=== PATIENT | female | born 1960 | race Caucasian/White ===

== ENCOUNTER 2023-11-22 21:00 | Outpatient (REF) | payer OTHER, SELFPAY | END 2023-11-22 21:01 | disposition home or self-care (01) | LOC: LAB 21:00 | PROVIDERS: PCP Internal Medicine; Visit Provider Physician Assistant | DX: Z01.419 Encounter for gynecological examination (general) (routine) without abnormal findings (principal) | CPT/HCPCS: 87624; 88175 ==

== ENCOUNTER 2023-12-20 13:34 | Outpatient (OUT) | payer OTHER, SELFPAY ==
--- OUTSIDE RECORDS SUMMARY | 2023-12-20 14:05 | XMS_ITS | CCD ---
Author Organization [facility] Care Team Providers Care Classified Advertising Supervisor Name Role Phone Mary Menard Unavailable Ricky Parmar Unavailable RONI, DR BOUCHER Consulting Unavailable BALL, DR BOUCHER Primary Care Unavailable BALL, DR BOUCHER Attending Unavailable BALL, DR BOUCHER Admitting Unavailable ZIEBER, DR DORIE Alberto Consulting Unavailable HIGHLANDER, NATA Siegel Consulting Unavailable BALL, DR BOUCHER Primary Care Unavailable HIGHLANDER, NATA Siegel Attending Unavailable HIGHLANDER, NATA Siegel Admitting Unavailable KLIPPER, VERONIKA Consulting Unavailable WEST, DR VERONIKA Morataya Consulting Unavailable BALL, DR BOUCHER Primary Care Unavailable HIGHLANDER, NATA Siegel Attending Unavailable HIGHLANDER, NATA Siegel Admitting Unavailable HIGHLANDER, NATA Siegel Consulting Unavailable BALL, DR BOUCHER Consulting Unavailable BALL, DR BOUCHER Primary Care Unavailable BALL, DR BOUCHER Attending Unavailable BALL, DR BOUCHER Admitting Unavailable ZIEBER, DR DORIE Alberto Consulting Unavailable BALL, DR BOUCHER Consulting Unavailable BALL, DR BOUCHER Primary Care Unavailable BALL, DR BOUCHER Attending Unavailable BALL, DR BOUCHER Admitting Unavailable WEST, DR VERONIKA Morataya Consulting Unavailable BALL, DR BOUCHER Consulting Unavailable BALL, DR BOUCHER Primary Care Unavailable BALL, DR BOUCHER Attending Unavailable BALL, DR BOUCHER Admitting Unavailable REQUEST, DR CHANG LISTED Consulting Unavaila ble BALL, DR BOUCHER Primary Care Unavailable REQUEST, DR CHANG LISTED Attending Unavaila ble REQUEST, DR CHANG LISTED Admitting Unavaila ble BALL, DR BOUCHER Consulting Unavailable BALL, DR BOUCHER Primary Care Unavailable BALL, DR BOUCHER Attending Unavailable BALL, DR BOUCHER Admitting Unavailable BALL, DR BOUCHER Primary Care Unavailable HIGHLANDER, NATA Siegel Attending Unavailable HIGHLANDER, NATA Siegel Admitting Unavailable BALL, DR BOUCHER Consulting Unavailable BALL, DR BOUCHER Primary Care Unavailable BALL, DR BOUCHER Attending Unavailable BALL, DR BOUCHER Admitting Unavailable WEST, DR VERONIKA Morataya Consulting Unavailable BALL, DR BOUCHER Primary Care Unavailable HIGHLANDER, NATA Siegel Attending Unavailable HIGHLANDER, NATA Siegel Admitting Unavailable HIGHLANDER, NATA Siegel Consulting Unavailable BALL, DR BOUCHER Consulting Unavailable RONI, DR BOUCHER Primary Care Unavailable RONI, DR BOUCHER Attending Unavailable RONI, DR BOUCHER Admitting Unavailable REQUEST, DR CHANG LISTED Attending Unavaila ble REQUEST, DR CHANG LISTED Admitting Unavaila ble BALL, DR BOUCHER Consulting Unavailable BALL, DR BOUCHER Primary Care Unavailable LIMESTONE, DR VERONIKA Morataya Consulting Unavailable RONI, DR BOUCHER Primary Care Unavailable ELAINE, NATA Siegel Attending Unavailable ELAINE, NATA Siegel Admitting Unavailable ELAINE, NATA Siegel Consulting Unavailable Unavailable Primary Care Provider UnavailILIANA Ontiveros Attending Unavailable PETDRAKE, ILIANA Pitts Attending Unavailable INGRID JUAREZ Attending Unavailable PETDRAKE, ILIANA Pitts Attending Unavailable Allergies Allergy Classification Reported Allergen(s) Allergy Type Date of Onset Reaction(s) Facility (6 sources) Pollen Drug allergy Unknown [employer] Other (3 sources) Insect Stings Propensity to adverse reactions 4 Unknown, Unknown Reaction [facility] (1 source) Pollen Allergy to substance 4 Unknown Reaction [facility] Medications Current Medications Medication Drug Class(es) Dates Sig (Normalized) Sig (Original) aspirin 81 mg delayed release oral tablet (10 sources) Platelet Aggregation Inhibitor, Nonsteroidal Anti-inflammatory Drug Start: 07-14-2022 take 1 tablet by mouth every twenty-four hours Aspirin 81 81 MG 1 tablet Orally Once a day Jun, Active Baby Aspirin 81 MG Active Baby Aspirin Act alfred azithromycin 250 mg oral tablet (11 sources) Macrolide Antimicrobial Start: 08-09-2022 Azithromycin 250 MG as directed Orally daily for 5 days Apr, Active Start: 01-24-2022 Azithromycin 2 50 MG 2 tablet on the first day, then 1 tablet daily for 4 days Orally Once a day for 5 day(s) Jan, Not-Taking/PRN levothyroxine sodium 0.112 mg oral tablet (8 sources) l-Thyroxine Start: 04-04-2023 levothyroxine (Synthroid, Levoxyl) 112 MCG tablet take 1 tablet by once daily in the morning Levothyroxine Sodium 112 MCG 1 tablet in the morning on an empty stomach Orally Once a day Active Completed/Discontinued Medications Medication Drug Class(es) Dates Sig (Normalized) Sig (Original) atorvastatin 20 mg oral tablet (7 sources) HMG-CoA Reductase Inhibitor take 1 tablet by mouth every twenty-four hours Atorvastatin Calcium 20 MG 1 tablet Orally Once a day Not-Taking/PRN meloxicam 15 mg oral tablet (7 sources) Nonsteroidal Anti-inflammatory Drug take 1 tablet by mouth every twenty-four hours Meloxicam 15 MG 1 tablet Orally Once a day Not-Taking/PRN Meloxicam Active Problems Active Problems Problem Classification Problem Date Documented Date Episodic/Chronic Acquired foot deformities (16 sources) Disorder of ankle; Translations: [Valgus deformity, not elsewhere classified, right ankle] Onset: 2 Episodic Acute bronchitis (7 sources) Acute bronchitis; Translations: [Acute bronchitis due to other specified organisms] Episodic Disorders of lipid metabolism (8 sources) Pure hypercholesterolemia; Translations: [Pure hypercholesterolemia, unspecified] Chronic Esophageal disorders (1 source) Gastro-esophageal reflux disease with esophagitis; Translations: [Gastroesophageal reflux disease with esophagitis without hemorrhage] Chronic Gastrointestinal hemorrhage (6 sources) Hemorrhage of rectum and anus; Translations: [Hemorrhage of anus and rectum] Episodic Other acquired deformities (5 sources) Joint contracture of the ankle and/or foot; Translations: [Contracture, 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 Other acquired deformities (1 source) Contracture, right foot; Translations: [Contracture, 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 Other connective tissue disease (5 sources) Peroneal tendinitis; Translations: [Peroneal tendinitis, right leg] Episodic Other connective tissue disease (5 sources) Peroneal tendinitis, right leg; Translations: [PERONEAL TENDINITIS RIGHT LEG] Onset: 2 Episodic Other diseases of veins and lymphatics (6 sources) Peripheral venous insufficiency; Translations: [Venous insufficiency (chronic) (peripheral)] Episodic Other diseases of veins and lymphatics (1 source) Venous insufficiency (chronic) (peripheral) Episodic Other gastrointestinal disorders (5 sources) Pharyngeal dysphagia; Translations: [Dysphagia, pharyngoesophageal phase] Episodic Other gastrointestinal disorders (1 source) Dysphagia, pharyngoesophageal phase; Translations: [Dysphagia, pharyngoesophageal] Episodic Other non-epithelial cancer of skin (1 source) Basal cell carcinoma of lower extremity; Translations: [Basal cell carcinoma of skin of left lower limb, including hip] 05-23-2023 Episodic Other screening for suspected conditions (not mental disorders or infectious disease) (12 sources) Raised TSH level; Translations: [Other specified abnormal findings of blood chemistry] Onset: 2 Episodic Other upper respiratory disease (6 sources) Bleeding from nose; Translations: [Epistaxis] Episodic Other upper respiratory disease (1 source) Epistaxis Episodic Other upper respiratory infections (1 source) Acute maxillary sinusitis, unspecified Episodic Peripheral and visceral atherosclerosis (18 sources) Other atherosclerosis of [place] arteries of extremities, bilateral legs; Translations: [Peripheral vascular disease, unspecified] Chronic Substance-related disorders (5 sources) Tobacco dependence in remission; Translations: [Nicotine dependence, cigarettes, in remission] Chronic Thyroid disorders (20 sources) Hypothyroidism; Translations: [Hypothyroidism, unspecified] Onset: 2 Chronic Varicose veins of lower extremity (8 sources) Varicose veins of lower extremity; Translations: [Varicose veins of bilateral lower extremities with other complications] Onset: 2 Resolved: 2 Episodic Past or Other Problems Problem Classification Problem Date Documented Da te Episodic/Chronic Esophageal disorders (5 sources) Esophageal disorders; Translations: [Gastroesophageal reflux disease with esophagitis without hemorrhage] Other connective tissue disease (1 source) Other enthesopathy of right foot and ankle; Translations: [OTHR ENTHESOPATHY RT FOOT AND ANKLE] Onset: 01-10-2022 Episodic Other connective tissue disease (4 sources) Pain in right foot; Translations: [PAIN IN RIGHT FOOT] Onset: 10-26-2021 Episodic Other connective tissue disease (1 source) Pain in right leg; Translations: [PAIN IN RIGHT LEG] Onset: 09-08-2021 Episodic Other connective tissue disease (1 source) Pain in left leg; Translations: [PAIN IN LEFT LEG] Onset: 09-08-2021 Episodic Other non-traumatic joint disorders (4 sources) Pain in right ankle and joints of right foot; Translations: [PAIN IN RIGHT ANKLE] Onset: 12-30-2021 Episodic Unclassified (1 source) Suspected COVID-19 virus infection Z20.822 Results Test Name Value Interpretation Reference Range Facility Destr of lesionon 05-23-2023 Complexity: simple Destruction method: electrodesiccation and curettage Informed consent: discussed and consent obtained Informed consent comment: The risks of the procedure were discussed, including, but not limited to risks of scarring, darker or commercial collections driver pigmentary changes, recurrence, infection, and incomplete removal Timeout: patient name, date of , surgical site, and procedure verified Procedure prep: Patient was prepped and draped in usual sterile fashion Prep type: Chlorhexidine Anesthesia: the lesion was anesthetized in a standard fashion Anesthetic: 1% lidocaine w/ epinephrine 1-100,000 buffered w/ 8.4% NaHCO3 Curettage performed in three different directions: Yes Electrodesiccation performed over the curetted area: Yes Curettage cycles: 3 Lesion length (cm): 1.1 Lesion width (cm): 1 Margin per side (cm): 0 Final wound size (cm): 1.1 Hemostasis achieved with: electrodesiccation Outcome: patient tolerated procedure well with no complications Post-procedure details: wound care instructions given Post-procedure details comment: Post-procedure instructions were given verbally and in writing. The office will be contacted if the lesion fails to resolve despite treatment, or if a side effect develops such as abnormal crusting, scabbing, reddness, discharge, or tenderness. Additional details: Amount of lidocaine used: 1.0 cc Previous accession number: [id number] [facility] [place] - TSHon 07-13-2022 TSH 0.013 uIU/mL Critically low 0.358-3.740 [facility] Comment on above: Performed By: #### D ATTSH #### [facility] [address] [place] [address] Dr. Yordan Ferguson TSH RANGE SEE BELOW Normal [facility] Comment on above: Result Comment: <0.3 4 UIU/ml HYPERTHYROID 0.34-5.60 UIU/ml EUTHYROID >5.60 UIU/ml HYPOTHYROID Performed By: #### D ATTSH #### [facility] [address] [place] [address] Dr. Yordan Ferguson [place] - TSHon 06-12-2022 TSH 0.020 uIU/mL Critically low 0.358-3.740 [facility] Comment on above: Performed By: #### D ATTSH #### [facility] [address] [place] [address] Dr. Yordan Ferguson TSH RANGE SEE BELOW Normal [facility] Comment on above: Result Comment: <0.3 4 UIU/ml HYPERTHYROID 0.34-5.60 UIU/ml EUTHYROID >5.60 UIU/ml HYPOTHYROID Performed By: #### D ATTSH #### [facility] [id number] Yordan Ferguson MG MAMM SCREEN 3D NORMA CADon 06-09-2022 MG MAMM SCREEN 3D NORMA CAD Patient: NEMO VALERA Exam Date: 06/09/2022 : 1960 Gender:F Ordering : DR RICKY PARMAR D.O. Admission #: [id number] Family : Order #: [id number] CLICK HERE TO VIEW EXAM RADIOLOGY REPORT PROCEDURE: MAMMOGRAM SCREENING 3D BILATERAL CAD COMPARISON: MG MAMM SCREEN NORMA W CAD, 06/01/2020. MG MAMM SCREEN 3D NORMA CAD, 06/03/2021. INDICATIONS: Screening mammography Calculator Name NCI Breast Cancer Risk Assessment Tool 5 Year Breast Cancer Risk 1.70% Lifetime Breast Cancer Risk 8.70% Personal Breast Cancer No Personal Ovarian Cancer No Treatments None Family Cancers None LOCATION: [facility] BREAST COMPOSITION: Heterogeneously dense,which may obscure small masses. FINDINGS: DIAGNOSTIC CATEGORY 2--BENIGN FINDING. NO CHANGE FROM COMPARISON. Scattered benign-appearing calcifications are present. RIGHT BREAST: No significant suspicious finding. LEFT BREAST: No significant suspicious finding. RECOMMENDATIONS: ROUTINE MAMMOGRAM AND CLINICAL EVALUATION IN 12 MONTHS. PLEASE NOTE: A NORMAL MAMMOGRAM DOES NOT EXCLUDE THE POSSIBILITY OF BREAST CANCER. A CLINICALLY SUSPICIOUS PALPABLE LUMP SHOULD BE BIOPSIED. Dictated by: Veronika Horton MD on 06/09/2022 at 10:26 Approved by: Veronika Horton MD on 06/09/2022 at 10:28 Normal [facility] TSHon 03-20-2022 TSH 0.072 uIU/mL Critically low 0.358-3.740 [facility] Comment on above: Performed By: #### T SH #### [facility] [id number] Yordan Ferguson TSHon 02-01-2022 TSH 42.462 uIU/mL Critically high 0.358-3.740 [facility] Comment on above: Performed By: #### T SH #### [facility] [address] [address] [address] Yordan Ferguson MRI ANKLE RT WO CONon 2021 MRI ANKLE RT WO CON EXAM: MRI ANKLE RT WO CON HISTORY: Ankle pain COMPARISON: X-rays 12/20/2021 TECHNIQUE: Multiplanar, multi sequential MRI sequences were performed. FINDINGS: No fracture, dislocation, subluxation or osseous lesion. Effusions of the talocrural and posterior subtalar joints are collected within their posterior recesses. The visualized articular cartilage is unremarkable. The tarsal tunnel and omar pedis exhibit no edema, hematoma, mass or cyst. Mild medial subcutaneous soft tissue edema with no loculated collection. The peroneus longus and peroneus brevis tendons exhibit no thickening, tear or edema. Small amount physiologic fluid within the peroneus longus tendon sheath as it courses posterior to the lateral malleolus. No abnormal fluid collection. The posterior tibial, flexor digitorum longus, flexor hallucis longus and anterior tendons exhibit no thickening, tear, edema or tenosynovial collections. The anterior talofibular, calcaneofibular, posterior talofibular, anterior and posterior inferior tibiofibular, syndesmotic, deltoid and spring ligamentous complexes exhibit no gross visualized irregularity. The sinus tarsi, Achilles tendon and plantar aponeurosis central cord exhibit no thickening, tear or edema. No muscle edema, hematoma, atrophy or fatty infiltration. IMPRESSION: 1. Nonspecific effusions of the talocrural and posterior subtalar joints, most likely stress related. 2. No peroneus longus or peroneus brevis tendinopathy or tenosynovitis. Electronically authenticated by: VERONIKA BANERJEE Date: 2022-01-07 22:[address] [facility] T3, TOTAL (TRIIODOTHYRONINE) on 12-15-2021 T3, TOTAL 75 ng/dL Normal 71-[address] [facility] Comment on above: Performed By: #### T 3TOTAL #### [facility] [address] [place] [address] Dr. Yoradn Ferguson THYROID PEROXIDASE ABon 09-0 Thyroid Peroxidase (TPO) Ab 244 IU/mL Critically high 0-34 [facility] Comment on above: Performed By: #### T POAB #### [facility] [address] [place] [address] Dr. Yordan Ferguson US THYROIDon 12-14-2021 US THYROID EXAMINATION: US THYR OID HISTORY: Hypothyroidism COMPARISON: No relevant comparison available. FINDINGS: RIGHT LOBE: Normal size and echotexture. Lobe size: 4.2 x 1.2 x 1.4 cm LEFT LOBE: Contains a 3 mm TR 3 nodule and a 3 mm colloid cyst. Lobe size: 3.5 x 1.0 x 1.2 cm. ISTHMUS: Normal size and echotexture. Thickness: 1 mm. IMPRESSION: 1. No suspicious findings. TR3 (mildly suspicious): > 1.5 cm, follow-up ultrasound in 1, 3, and 5 years. > 2.5 cm, fine needle aspiration. Electronically authenticated by: DORIE OROZCO Date: 2021-12-14 07:04 Normal [facility] FREE T4on 12-13-2021 Free T4 [Mass/Vol] 0.43 ng/dL Critically low 0.76-1.46 [facility] Comment on above: Performed By: #### D ATTSH #### [facility] [address] [place] [address] Dr. Yordan Ferguson TSHon 12-13-2021 TSH 65.911 uIU/mL Critically high 0.358-3.740 [facility] Comment on above: Performed By: #### T SH #### [facility] [address] [place] [address] Dr. Yordan Ferguson [facility] CBC AUTO DIFFon 12-01-2021 BASO # 0.1 103/ul Normal 0.0-0.1 [facility] Comment on above: Performed By: #### D ATTSH #### [facility] [address] [place] [address] Dr. Yordan Ferguson Basophils/100 WBC (Bld) 1.1 % Normal 0.2-2.0 [facility] Comment on above: Performed By: #### D ATTSH #### [facility] [address] [place] [address] Dr. Yordan Ferguson EO # 0.4 103/ul Normal 0.0-0.7 [facility] Comment on above: Performed By: #### D ATTSH #### [facility] [address] [place] [address] Dr. Yordan Ferguson Eosinophils/100 WBC (Bld) 6.5 % Normal 0.9-7.0 [facility] Comment on above: Performed By: #### D ATTSH #### [facility] [address] [place] [address] Dr. Yordan Ferguson Erythrocyte distribution width (RBC) [Ratio] 13.6 % Normal 11.0-15.0 [facility] Comment on above: Performed By: #### D ATTSH #### [facility] [address] [place] [address] Dr. Yordan Ferguson Hematocrit (Bld) [Volume fraction] 40.6 % Normal 36.0-48.0 [facility] Comment on above: Performed By: #### D ATTSH #### [facility] [address] [place] [address] Dr. Yordan Ferguson Hemoglobin (Bld) [Mass/Vol] 13.4 g/dL Normal 12.0-16.0 [facility] Comment on above: Performed By: #### D ATTSH #### [facility] [address] [place] [address] Dr. Yordan Ferguson IG # 0.01 10e3/ul Normal 0.00-0.03 [facility] Comment on above: Performed By: #### D ATTSH #### [facility] [address] [place] [address] Dr. Yordan Ferguson IG % 0.2 % Normal 0.0-0.[address] [facility] Comment on above: Performed By: #### D ATTSH #### [facility] [address] [place] [address] Dr. Yordan Ferguson LYMPH # 2.1 103/ul Normal 1.2-3.[address] [facility] Comment on above: Performed By: #### D ATTSH #### [facility] [address] [place] [address] Dr. Yordan Ferguson Lymphocytes/100 WBC (Bld) 31.7 % Normal 20.5-60.0 [facility] Comment on above: Performed By: #### D ATTSH #### [facility] [address] [address] [address] Yordan Ferguson MCH (RBC) [Entitic mass] 31.6 pg Normal 26.7-34.0 [facility] Comment on above: Performed By: #### D ATTSH #### [facility] [address] [place] [address] Dr. Yordan Ferguson MCHC (RBC) [Mass/Vol] 33.0 g/dL Normal 29.9-35.[address] [facility] Comment on above: Performed By: #### D ATTSH #### [facility] [address] [place] [address] Dr. Yordan Ferguson MCV (RBC) [Entitic vol] 95.8 fL Normal 81.0-99.0 [facility] Comment on above: Performed By: #### D ATTSH #### [facility] [address] [place] [address] Dr. Yordan Ferguson MONO # 0.6 103/ul Normal 0.3-0.8 [facility] Comment on above: Performed By: #### D ATTSH #### [facility] [address] [place] [address] Dr. Yordan Ferguson Monocytes/100 WBC (Bld) 8.6 % Normal 1.7-12.0 [facility] Comment on above: Performed By: #### D ATTSH #### [facility] [address] [place] [address] Dr. Yordan Ferguson NEUT # 3.4 103/ul Normal 1.4-6.[address] [facility] Comment on above: Performed By: #### D ATTSH #### [facility] [address] [place] [address] Dr. Yordan Ferguson Neutrophils/100 WBC (Bld) 51.9 % Normal 43.0-75.[address] [facility] Comment on above: Performed By: #### D ATTSH #### [facility] [address] [place] [address] Dr. Yordan Ferguson Platelet mean volume (Bld) [Entitic vol] 9.0 fL Critically low 9.5-13.5 [facility] Comment on above: Performed By: #### D ATTSH #### [facility] [address] [place] [address] Dr. Yordan Ferguson PLT 307 103/ul Normal 150-[address] [facility] Comment on above: Performed By: #### D ATTSH #### [facility] [address] [address] [address] Yordan Ferguson RBC 4.24 106/ul Normal 4.20-5.40 [facility] Comment on above: Performed By: #### D ATTSH #### [facility] [address] [address] [address] Yordan Ferguson WBC 6.5 103/ul Normal 4.0-11.0 [facility] Comment on above: Performed By: #### D ATTSH #### [facility] [address] [place] [address] Dr. Yordan Ferguson [facility] PROFILEon 022 Albumin [Mass/Vol] 4.4 g/dL Normal 3.4-5.0 [facility] Comment on above: Performed By: #### H FPF #### [facility] [address] [place] [address] Dr. Yordan Ferguson Albumin/Globulin [Mass ratio] 1.2 {ratio} Normal [facility] Comment on above: Performed By: #### H FPF #### [facility] [address] [place] [address] Dr. Yordan Ferguson ALP [Catalytic activity/Vol] 75 U/L Normal 46-[address] [facility] Comment on above: Performed By: #### H FPF #### [facility] [address] [place] [address] Dr. Yordan Ferguson ALT [Catalytic activity/Vol] 33 U/L Normal 14-[address] [facility] Comment on above: Performed By: #### H FPF #### [facility] [address] [place] [address] Dr. Yordan Ferguson AST [Catalytic activity/Vol] 29 U/L Normal 15-[address] [facility] Comment on above: Performed By: #### H FPF #### [facility] [address] [address] [address] Yordan Ferguson Bilirubin [Mass/Vol] 0.3 mg/dL Normal 0.2-1.0 [facility] Comment on above: Performed By: #### H FPF #### [facility] [address] [address] [address] Yordan Ferguson Calcium [Mass/Vol] 9.3 mg/dL Normal 8.5-10.1 [facility] Comment on above: Performed By: #### H FPF #### [facility] [address] [address] [address] Yordan Ferguson Chloride [Moles/Vol] 103 mmol/L Normal 98-107 [facility] Comment on above: Performed By: #### H FPF #### [facility] [address] [place] [address] Dr. Yordan Ferguson CHOL-HDL RATIO NORM SEE BELOW Normal [facility] Comment on above: Result Comment: 3.3 - 4.4 LOW RISK 4.4 - 7.1 AVERAGE RISK 7.1 - 11.0 MODERATE RISK >11.0 HIGH RISK Performed By: #### H FPF #### [facility] [address] [place] [address] Dr. Yordan Ferguson Cholesterol [Mass/Vol] 214 mg/dL Critically high <=200 [facility] Comment on above: Performed By: #### H FPF #### [facility] [address] [address] [address] Yordan Ferguson Cholesterol in HDL [Mass/Vol] 87 mg/dL Critically high 40-[address] [facility] Comment on above: Performed By: #### H FPF #### [facility] [address] [place] [address] Dr. Yordan Ferguson Cholesterol in LDL [Mass/Vol] 111.2 mg/dL Normal [facility] Comment on above: Performed By: #### H FPF #### [facility] [address] [place] [address] Dr. Yordan Ferguson Cholesterol.total /Cholesterol in HDL [Mass ratio] 2.5 {ratio} Normal [facility] Comment on above: Performed By: #### H FPF #### [facility] [address] [place] [address] Dr. Yordan Ferguson CO2 [Moles/Vol] 28.0 mmol/L Normal 21.0-32.0 [facility] Comment on above: Performed By: #### H FPF #### [facility] [address] [place] [address] Dr. Yordan Ferguson Creatinine [Mass/Vol] 0.83 mg/dL Normal 0.55-1.02 [facility] Comment on above: Performed By: #### H FPF #### [facility] [address] [place] [address] Dr. Yordan Ferguson Globulin (S) [Mass/Vol] 3.6 g/dL Normal [facility] Comment on above: Performed By: #### H FPF #### [facility] [address] [place] [address] Dr. Yordan Ferguson Glucose [Mass/Vol] 86 mg/dL Normal 74-106 [facility] Comment on above: Performed By: #### H FPF #### [facility] [address] [place] [address] Dr. Yordan Ferguson HDL NORMAL > or = 60 mg/dl - LO W CARDIOVASCULAR RISK <40 mg/dl - HIGH CARDIOVASCULAR RISK Normal [facility] Comment on above: Performed By: #### H FPF #### [facility] [address] [place] [address] Dr. Yordan Ferguson LDL CALC NORMAL SEE BELOW Normal [facility] Comment on above: Result Comment: <100 mg/dl OPTIMAL 100 - 129 mg/dl NEAR OR ABOVE OPTIMAL 130 - 159 mg/dl BORDERLINE HIGH 160 - 189 mg/dl HIGH >190 mg/dl VERY HIGH Performed By: #### H FPF #### [facility] [address] [place] [address] Dr. Yordan Ferguson Potassium [Moles/Vol] 4.4 mmol/L Normal 3.5-5.1 [facility] Comment on above: Performed By: #### H FPF #### [facility] [address] [address] [address] Yordan Ferguson Protein [Mass/Vol] 8.0 g/dL Normal 6.4-8.2 [facility] Comment on above: Performed By: #### H FPF #### [facility] [address] [address] [address] Yordan Ferguson Sodium [Moles/Vol] 140 mmol/L Normal 136-145 [facility] Comment on above: Performed By: #### H FPF #### [facility] [address] [place] [address] Dr. Yordan Ferguson Triglyceride [Mass/Vol] 79 mg/dL Normal <=150 [facility] Comment on above: Performed By: #### H FPF #### [facility] [address] [place] [address] Dr. Yordan Ferguson TSH 98.063 uIU/mL Critically high 0.358-3.740 [facility] Comment on above: Result Comment: RERA N SPECIMEN PER PHYSICIAN REQUEST 12/06/21 DUPLICATED WELL @ 102.38 uIU/ml Performed By: #### H FPF #### [facility] [address] [place] [address] Dr. Yordan Ferguson Urea nitrogen [Mass/Vol] 17.0 mg/dL Normal 7.0-18.0 [facility] Comment on above: Performed By: #### H FPF #### [facility] [address] [place] [address] Dr. Yordan Ferguson Urea nitrogen/Creatini ne [Mass ratio] 20.5 mg/mg Normal [facility] Comment on above: Performed By: #### H FPF #### [facility] [address] [address] [address] Yordan Ferguson VLDL CALC 15.8 mg/dL Normal [facility] Comment on above: Performed By: #### H FPF #### [facility] [address] [place] [address] Dr. Yordan Ferguson CBC AUTO DIFFon 09-09-2021 BASO # 0.1 103/ul Normal 0.0-0.1 [facility] Comment on above: Performed By: #### D ATCBC #### [facility] [address] [place] [address] Dr. Yordan Ferguson Basophils/100 WBC (Bld) 1.4 % Normal 0.2-2.0 [facility] Comment on above: Performed By: #### D ATCBC #### [facility] [address] [place] [address] Dr. Yordan Ferguson EO # 0.4 103/ul Normal 0.0-0.7 [facility] Comment on above: Performed By: #### D ATCBC #### [facility] [address] [place] [address] Dr. Yordan Ferguson Eosinophils/100 WBC (Bld) 6.6 % Normal 0.9-7.0 [facility] Comment on above: Performed By: #### D ATCBC #### [facility] [address] [place] [address] Dr. Yordan Ferguson Erythrocyte distribution width (RBC) [Ratio] 14.6 % Normal 11.0-15.0 [facility] Comment on above: Performed By: #### D ATCBC #### [facility] [address] [place] [address] Dr. Yordan Ferguson Hematocrit (Bld) [Volume fraction] 39.5 % Normal 36.0-48.0 [facility] Comment on above: Performed By: #### D ATCBC #### [facility] [address] [place] [address] Dr. Yordan Ferguson Hemoglobin (Bld) [Mass/Vol] 12.9 g/dL Normal 12.0-16.[address] [facility] Comment on above: Performed By: #### D ATCBC #### [facility] [address] [place] [address] Dr. Yordan Ferguson IG # 0.01 10e3/ul Normal 0.00-0.03 [facility] Comment on above: Performed By: #### D ATCBC #### [facility] [address] [place] [address] Dr. Yordan Ferguson IG % 0.2 % Normal 0.0-0.5 [facility] Comment on above: Performed By: #### D ATCBC #### [facility] [address] [place] [address] Dr. Yordan Ferguson LYMPH # 1.9 103/ul Normal 1.2-3.8 [facility] Comment on above: Performed By: #### D ATCBC #### [facility] [address] [place] [address] Dr. Yordan Ferguson Lymphocytes/100 WBC (Bld) 32.6 % Normal 20.5-60.0 [facility] Comment on above: Performed By: #### D ATCBC #### [facility] [address] [place] [address] Dr. Yordan Ferguson MCH (RBC) [Entitic mass] 30.9 pg Normal 26.7-34.0 [facility] Comment on above: Performed By: #### D ATCBC #### [facility] [address] [place] [address] Dr. Yordan Ferguson MCHC (RBC) [Mass/Vol] 32.7 g/dL Normal 29.9-35.[address] [facility] Comment on above: Performed By: #### D ATCBC #### [facility] [address] [place] [address] Dr. Yordan Ferguson MCV (RBC) [Entitic vol] 94.5 fL Normal 81.0-99.[address] [facility] Comment on above: Performed By: #### D ATCBC #### [facility] [address] [place] [address] Dr. Yordan Ferguson MONO # 0.5 103/ul Normal 0.3-0.[address] [facility] Comment on above: Performed By: #### D ATCBC #### [facility] [address] [place] [address] Dr. Yordan Ferguson Monocytes/100 WBC (Bld) 7.8 % Normal 1.7-12.[address] [facility] Comment on above: Performed By: #### D ATCBC #### [facility] [address] [place] [address] Dr. Yordan Ferguson NEUT # 3.0 103/ul Normal 1.4-6.5 [facility] Comment on above: Performed By: #### D ATCBC #### [facility] [address] [place] [address] Dr. Yordan Ferguson Neutrophils/100 WBC (Bld) 51.4 % Normal 43.0-75.0 [facility] Comment on above: Performed By: #### D ATCBC #### [facility] [address] [place] [address] Dr. Yordan Ferguson Platelet mean volume (Bld) [Entitic vol] 8.5 fL Critically low 9.5-13.5 [facility] Comment on above: Performed By: #### D ATCBC #### [facility] [address] [place] [address] Dr. Yordan Ferguson PLT 297 103/ul Normal 150-450 [facility] Comment on above: Performed By: #### D ATCBC #### [facility] [address] [place] [address] Dr. Yordan Ferguson RBC 4.18 106/ul Critically low 4.20-5.40 [facility] Comment on above: Performed By: #### D ATCBC #### [facility] [address] [place] [address] Dr. Yordan Ferguson WBC 5.8 103/ul Normal 4.0-11.0 [facility] Comment on above: Performed By: #### D ATCBC #### [facility] [address] [place] [address] Dr. Yordan Ferguson HOLLAND- BMP WITH LIPIDon 2021 Anion gap [Moles/Vol] 11.9 mmol/L Normal [facility] Comment on above: Performed By: #### D ATBMP #### [facility] [address] [place] [address] Dr. Yordan Ferguson Calcium [Mass/Vol] 9.0 mg/dL Normal 8.5-10.1 [facility] Comment on above: Performed By: #### D ATBMP #### [facility] [address] [place] [address] Dr. Yordan Ferguson Chloride [Moles/Vol] 104 mmol/L Normal 98-[address] [facility] Comment on above: Performed By: #### D ATBMP #### [facility] [address] [address] [address] Yordan Ferguson Cholesterol [Mass/Vol] 261 mg/dL Critically high <=200 [facility] Comment on above: Performed By: #### D ATBMP #### [facility] [address] [address] [address] Yordan Ferguson Cholesterol in HDL [Mass/Vol] 94 mg/dL Critically high 40-60 [facility] Comment on above: Performed By: #### D ATBMP #### [facility] [address] [address] [address] Yordan Ferguson Cholesterol in LDL [Mass/Vol] 153.2 mg/dL Normal [facility] Comment on above: Performed By: #### D ATBMP #### [facility] [address] [address] [address] Yordan Ferguson CO2 [Moles/Vol] 28.5 mmol/L Normal 21.0-32.0 [facility] Comment on above: Performed By: #### D ATBMP #### [facility] [address] [place] [address] Dr. Yordan Ferguson Creatinine [Mass/Vol] 0.83 mg/dL Normal 0.55-1.[address] [facility] Comment on above: Performed By: #### D ATBMP #### [facility] [address] [address] [address] Yordan Ferguson EGFR-AF MALAGASY >60 Normal >=60 [facility] Comment on above: Performed By: #### D ATBMP #### [facility] [address] [address] [address] Yordan Ferguson EGFR-NON AF MALAGASY >60 Normal >=[address] [facility] Comment on above: Performed By: #### D ATBMP #### [facility] [address] [address] [address] Yordan Ferguson Glucose [Mass/Vol] 83 mg/dL Normal 74-[address] [facility] Comment on above: Performed By: #### D ATBMP #### [facility] [address] [address] [address] Yordan Ferguson HDL NORMAL > or = 60 mg/dl - LO W CARDIOVASCULAR RISK <40 mg/dl - HIGH CARDIOVASCULAR RISK Normal [facility] Comment on above: Performed By: #### D ATBMP #### [facility] [address] [address] [address] Yordan Ferguson LDL CALC NORMAL SEE BELOW Normal [facility] Comment on above: Result Comment: <100 mg/dl OPTIMAL 100 - 129 mg/dl NEAR OR ABOVE OPTIMAL 130 - 159 mg/dl BORDERLINE HIGH 160 - 189 mg/dl HIGH >190 mg/dl VERY HIGH Performed By: #### D ATBMP #### [facility] [address] [address] [address] Yordan Ferguson Potassium [Moles/Vol] 4.4 mmol/L Normal 3.5-5.1 [facility] Comment on above: Performed By: #### D ATBMP #### [facility] [address] [address] [address] Yordan Ferguson Sodium [Moles/Vol] 140 mmol/L Normal 136-145 [facility] Comment on above: Performed By: #### D ATBMP #### [facility] [address] [address] [address] Yordan Ferguson Triglyceride [Mass/Vol] 69 mg/dL Normal <=[address] [facility] Comment on above: Performed By: #### D ATBMP #### [facility] [address] [address] [address] Yordan Ferguson Urea nitrogen [Mass/Vol] 18.0 mg/dL Normal 7.0-18.0 [facility] Comment on above: Performed By: #### D ATBMP #### [facility] [address] [address] [address] Yordan Ferguson Urea nitrogen/Creatini ne [Mass ratio] 21.7 mg/mg Normal [facility] Comment on above: Performed By: #### D ATBMP #### [facility] [address] [address] [address] Yordan Ferguson VLDL CALC 13.8 mg/dL Normal [facility] Comment on above: Performed By: #### [facility] #### [facility] [address] [address] [address] Yordan Ferguson Vital Signs Date Time Vital Sign Value Performing Clinician Facility 12-13-2022 08:30-0400 Body height 170.18 cm Ricky Ball Other [facility] Other 12-13-2022 08:30-0400 Body mass index (BMI) [Ratio] 25.68 kg/m2 Ricky Ball Other [facility] Other 12-13-2022 08:30-0400 Body weight 74.39 kg Ricky Ball Other [facility] Other 12-13-2022 08:30-0400 Diastolic blood pressure 71 mm[Hg] Ricky Ball Other [facility] Other 12-13-2022 08:30-0400 Respiratory rate 12 /min Ricky Ball Other [facility] Other 12-13-2022 08:30-0400 Systolic blood pressure 108 mm[Hg] Ricky Ball Other [facility] Other 06-16-2022 13:30-0500 Body height 170.18 cm Ricky Ball Other [facility] Other 06-16-2022 13:30-0500 Body mass index (BMI) [Ratio] 25.84 kg/m2 Ricky Ball Other [facility] Other 06-16-2022 13:30-0500 Body weight 74.84 kg Ricky Ball Other [facility] Other 06-16-2022 13:30-0500 Diastolic blood pressure 70 mm[Hg] Ricky Ball Other [facility] Other 06-16-2022 13:30-0500 Respiratory rate 12 /min Ricky Ball Other [facility] Other 06-16-2022 13:30-0500 Systolic blood pressure 118 mm[Hg] Ricky Ball Other [facility] Other 10-13-2021 10:30-0400 Body height 170.18 cm Mary Maldonadoasmita Other [facility] Other 10-13-2021 10:30-0400 Body mass index (BMI) [Ratio] 25.06 kg/m2 Mary Derian Other [facility] Other 10-13-2021 10:30-0400 Body temperature 97.1 [degF] Mary Maldonadoasmita Other [facility] Other 10-13-2021 10:30-0400 Body weight 72.58 kg Mary Maldonadoasmita Other [facility] Other 10-13-2021 10:30-0400 Diastolic blood pressure 80 mm[Hg] Mary Menard Other [facility] Other 10-13-2021 10:30-0400 SaO2% (BldA) [Mass fraction] 97 % Mary Derian Other [facility] Other 10-13-2021 10:30-0400 Systolic blood pressure 110 mm[Hg] Mary Menard Other [facility] Other Encounters Encounter Date Encounter Type Care Provider Facility Start: 11-22-2023 End: 11-22-2023 ambulatory INGRID JUAREZ Not Available Start: 11-20-2023 End: 11-20-2023 ambulatory ILIANA A PETITTI Not Available Start: 06-29-2023 End: 06-29-2023 ambulatory [facility] Work Phone: Start: 06-29-2023 End: 06-29-2023 Patient encounter procedure [facility] Physician [facility] Work Phone: Start: 05-29-2023 Chart abstracting Iliana Gisselle starr MD Work Phone: [facility] Start: 05-23-2023 End: 05-23-2023 Patient encounter procedure Iliana Delarosa MD Work Phone: [facility] Comment on above: Basal cell carcinoma of skin of left lower limb, including hip (Primary Dx) Start: 05-23-2023 End: 05-23-2023 ambulatory ILIANA Pitts PETITTI Not Available Start: 04-17-2023 ([facility]) [facility] Scheduled Ricky Parmar [facility] Start: 04-17-2023 End: 04-17-2023 ambulatory Ricky Parmar Other [facility] Other Start: 04-17-2023 End: 04-17-2023 Patient encounter procedure [facility] Physician [facility] Work Phone: Start: 04-06-2023 End: 04-06-2023 ambulatory ILIANA Pitts PETITTI Not Available Start: 12-13-2022 End: 12-13-2022 ambulatory Ricky Parmar Other [facility] Other Start: 12-13-2022 Encounter for genera l adult medical examination without abnormal findings Ricky Parmar [facility] Start: 12-13-2022 Periodic preventive med est patient 40-64yrs Ricky Parmar [facility] Start: 10-10-2022 End: 10-10-2022 ambulatory Ricky Parmar Other [facility] Other Start: 10-10-2022 Telephone encounter Ricky Parmar [facility] Start: 08-09-2022 End: 08-09-2022 ambulatory Ricky Parmar Other [facility] Other Start: 08-09-2022 Office outpatient vi sit 15 minutes Ricky Parmar [facility] Start: 07-14-2022 End: 07-14-2022 ambulatory Ricky Parmar Other [facility] Other Start: 07-14-2022 Telephone encounter Ricky Parmar [facility] Start: 07-13-2022 End: 07-14-[address] RICKY PARMAR Facility:[facility] Start: 06-16-2022 End: 06-16-2022 ambulatory Ricky Parmar Other [facility] Other Start: 06-16-2022 Office outpatient vi sit 15 minutes Ricky Parmar [facility] Start: 06-12-2022 End: 06-13-[address] BERNARDO GUARDADO REQUEST Facility:[facility] Start: 06-09-2022 End: 06-10-[address] RICKY PARMAR Facility:[facility] Start: 03-20-2022 End: 03-21-[address] RICKY PARMAR Facility:[facility] Start: 02-01-2022 End: 02-02-[address] RICKY PARMAR Facility:[facility] Start: 01-06-2022 End: 01-07-2022 ambulatory NATA HENRY Facility:[facility] Start: 12-30-2021 End: 12-31-[address] VERONIKA HORTON Facility:[facility] Start: 12-13-2021 End: 12-14-[address] RICKY PARMAR Facility:[facility] Start: 12-05-2021 End: 12-28-[address] RICKY PARMAR Facility:[facility] Start: 12-01-2021 End: 12-02-[address] RICKY PARMAR Facility:[facility] Start: 10-26-2021 End: 10-27-[address] VERONIKA HORTON Facility:[facility] Start: 10-13-2021 End: 10-13-2021 ambulatory Mary Menard Other [facility] Other Start: 10-13-2021 [facility] visit new patient Mary ocampo [facility] Start: 09-14-2021 End: 09-15-[address] VERONIKA HORTON Facility:[facility] Start: 09-09-2021 End: 09-10-2021 ambulatory NONE LISTED REQUEST Facility:[facility] Start: 09-02-2021 End: 09-03-[address] RICKY PARMAR Facility:[facility] Procedures Date Procedure Procedure Detail Performing Clinician Start: 05-23-2023 DESTRUCTION OF LESION E fany Delarosa MD Work Phone: Plan of Treatment Date Care Activity Detail Author Start: 11-27-2023 End: 11-27-2023 Patient encounter procedure 11/27/2023 9:20 AM EDT Office Visit [facility] [address] [place] [address] Iliana Delarosa MD [address] [place] [address] [facility] Payers Date Payer Category Payer Private Health Insurance NATALIE BRADFORD [id number] 2023-Present [address] [place] [address] [id number] 2023 Private Health Insurance [id number] 2023 Private Health Insurance [id number] 1962 Unknown [id number] .593 1962 Unknown [id number] 2.16.840.1.600896.3.579.2 .593 1962 Unknown [id number] 2.16.840.1.165123.3.579.2 .593 1962 Unknown [id number] 2.16.840.1.006107.3.579.2 .593 1962 Unknown [id number] 2.16.840.1.285079.3.579.2 .593 1962 Unknown [id number] 2.16.840.1.396106.3.579.2 .593 1962 Unknown [id number] 2.16.840.1.945263.3.579.2 .593 1962 Unknown [id number] 2.16.840.1.990551.3.579.2 .593 1962 Unknown [id number] 2.16.840.1.768481.3.579.2 .593 1962 Unknown [id number] 2.16.840.1.411576.3.579.2 .593 1962 Unknown [id number] 2.16.840.1.166377.3.579.2 .1259 1962 Unknown [id number] 2.16.840.1.483632.3.579.2 .1259 1962 Unknown [id number] 2.16.840.1.310262.3.579.2 .1259 1962 Unknown [id number] 2.16.840.1.277405.3.579.2 .1259 1959 Self-pay 1959 Unknown [id number] Unknown [id number] 2.16.840.1.174413.3.579.2 .593 Unknown [id number] 2.16.840.1.084967.3.579.2 .593 Unknown [id number] 2.16.840.1.270396.3.579.2 .593 Unknown [id number] 2.16.840.1.961839.3.579.2 .593 Social History Date Type Detail Facility Start: 05-23-2023 Sex Assigned At [facility] Other Start: 04-06-2023 Tobacco smoking status ALIS Never smoked tobacco [facility] Start: 04-06-2023 End: 05-29-2023 Tobacco use and exposure Smokeless tobacco non-user [facility] Start: 05-23-2023 History of Social function [facility] Start: 1960 Sex Assigned At Not on file [facility] Start: 05-29-2023 End: 06-29-2023 Tobacco smoking status ALIS Ex-smoker [facility] History of tobacco use Current smoker [facility] History of tobacco use Cigarette Smoker [facility] Start: 1960 Sex Assigned At Female F [facility] Clinical Notes 09-02-2021 to 05-23-2023 Iliana Delarosa MD - 05/23/2023 9:20 AM EST Note Date & Type Note Facility 05-23-2023 History of Presen t illness Narrative Images from the original note were not included. Follow up Diagnosis: Basal Cell Carcinoma Location: left thigh Last visit: 04/06/2023 Symptoms: redness Procedure performed: Shave biopsy Date of procedure: 04/06/2023 Current treatment: Here today for ED&C All pertinent medical history, medications, and allergies were reviewed. General Exam: alert , oriented to person, place, and time , normal affect, well appearing Unaccompanied A focused exam completed based on patient reported problems, see below: 1. Basal cell carcinoma of skin of left lower limb, including hip Left Thigh [place] papule at biopsy site Destr of lesion Complexity: simple Destruction method: electrodesiccation and curettage Informed consent: discussed and consent obtained Informed consent comment: The risks of the procedure were discussed, including, but not limited to risks of scarring, darker or commercial collections driver pigmentary changes, recurrence, infection, and incomplete removal Timeout: patient name, date of , surgical site, and procedure verified Procedure prep: Patient was prepped and draped in usual sterile fashion Prep type: Chlorhexidine Anesthesia: the lesion was anesthetized in a standard fashion Anesthetic: 1% lidocaine w/ epinephrine 1-100,000 buffered w/ 8.4% NaHCO3 Curettage performed in three different directions: Yes Electrodesiccation performed over the curetted area: Yes Curettage cycles: 3 Lesion length (cm): 1.1 Lesion width (cm): 1 Margin per side (cm): 0 Final wound size (cm): 1.1 Hemostasis achieved with: electrodesiccation Outcome: patient tolerated procedure well with no complications Post-procedure details: wound care instructions given Post-procedure details comment: Post-procedure instructions were given verbally and in writing. The office will be contacted if the lesion fails to resolve despite treatment, or if a side effect develops such as abnormal crusting, scabbing, reddness, discharge, or tenderness. Additional details: Amount of lidocaine used: 1.0 cc Previous accession number: [id number] ED&C today, see procedure note. Return to clinic prior to next scheduled visit for any signs or symptoms of recurrence, reviewed the signs and symptoms. Next Visit: 6 months FBSE documented in this encounter [facility] 04-17-2023 Evaluation note Encounter Date Diagnosis Assessment Notes Apr, Acute bronchitis due to other specified organisms (ICD-10 - J20.8) Instructed to use Robitussin or Mucinex for cough, saline or Flonase NS for congestion, Tylenol for pain and fever. Apr, Cigarette nicotine dependence in remission (ICD-10 - F17.211) May increase risk for prolonged illness [facility] Other 08-30-2023 Evaluation note* Encounter Date Diagnosis Assessment Notes Treatment Notes Treatment Clinical Notes Nov, Wellness examination (ICD-10 - Z00.00) Healthy diet and exercise. Reviewed age-appropriate preventive testing recommended. Nov, Atherosclerosis of [place] artery of both lower extremities with intermittent claudication (ICD-10 - I70.213) Asymptomatic, continues to walk daily Continue ASA qod Inspect feet daily for cuts Nov, Other specified hypothyroidism (ICD-10 - E03.8) Nov, Autoimmune thyroiditis (ICD-10 - E06.3) Euthyoid clinically, TSH yearly Nov, Elevated cholesterol (ICD-10 - E78.00) Instructed on diet and exercise with continued statin therapy.Discussed the beneficial effects of lowering cholesterol in reducing the risk for cerebrovascular and cardiovascular disease. Nov, Cigarette nicotine dependence in remission (ICD-10 - F17.211) Continue abstinence Nov, Screening mammogram for breast cancer (ICD-10 - Z12.31) Instructed on monthly SBE and yearly Mammogram [facility] Other 04-26-2023 Evaluation note* Encounter Date Diagnosis Assessment Notes Treatment Notes Treatment Clinical Notes Jul, Acute non-recurrent maxillary sinusitis (ICD-10 - J01.00) Instructed to use Robitussin or Mucinex for cough, saline or Flonase NS for congestion, Tylenol for pain and fever. Jul, Suspected COVID-19 virus infection (ICD-10 - Z20.822) Encouraged to test and notify office if positive results [facility] Other 03-03-2023 Evaluation note* Encounter Date Diagnosis Assessment Notes Treatment Notes Treatment Clinical Notes Jun, Acquired autoimmune hypothyroidism (ICD-10 - E06.3) Slightly overtreated, since asymptomatic, would continue present treatment. Recheck TSH in month, prior to reordering Levothyroxine. Jun, Peripheral arterial disease (ICD-10 - I73.9) Continue ASA and recommend but declined Statin. Walk daily. Inspect feet daily for cuts and calluses Jun, Chronic venous insufficiency (ICD-10 - I87.2) Avoid salt and elevate lower extremities, support stockings, inspect legs and feet daily for blisters and ulcerations. Jun, Epistaxis (ICD-10 - R04.0) Saline NS daily. Avoid NSAIDs [facility] Other 09-16-2022 NotePROCEDURE: XR ANKLE RT MIN 3 VIEWS COMPARISON: None. HISTORY: Pain of right ankle joint FINDINGS: BONES:No fracture, acute abnormality, or significant arthropathy. SOFT TISSUES:Negative. No visible soft tissue swelling. EFFUSION:None visible. OTHER: Negative. IMPRESSION: No acute abnormality Electronically authenticated by: VERONIKA HORTON Date: 2021-12-30 16:32[facility]07-13-2022 NotePROCEDURE: XR FOOT RT MIN 3 VIEWS COMPARISON: 09/14/2021 HISTORY: Pain in right foot FINDINGS: BONES:No fracture, acute abnormality, or significant arthropathy. SOFT TISSUES:Negative. No visible soft tissue swelling. EFFUSION:None visible. OTHER: Negative. IMPRESSION: No acute abnormality Electronically authenticated by: VERONIKA Hedrick: 2021-10-26 19:43[id number]* Encounter Date Diagnosis Assessment Notes Treatment Notes Treatment Clinical Notes Sep, Varicose veins of bilateral lower extremities with other complications (ICD-10 - I83.893) We reviewed her lower extremity ABIs obtained at the [facility] which revealed no hemodynamically significant peripheral arterial disease bilaterally. She has no open sores or nonhealing ulcerations. She has no symptoms of claudication or ischemic rest pain. She has easily palpable normal DP/PT pulses bilaterally. On extensive questioning today I believe this patient suffers from mild varicose veins which may attribute to her occasional lower extremity edema and dependent rubor. We discussed the vein handout page by page and all of her questions were addressed. We discussed recommendation for full functional venous duplex to further delineate any degree of valvular incompetence however she does not want to proceed with any further testing at this time she just wanted to make sure that she did not have any arterial disease. I recommend she wear some graded compression stockings and elevate her legs when she can to decrease her symptoms from her varicose veins. She states understanding of all discussion here today, agrees with plan, and denies any questions. We will continue to follow her along on a as needed basis and she knows to call us with any issues or concerns. She verbalizes understanding of all discussion, agrees with this plan, denies any questions. [facility] Other 06-01-2022 NotePROCEDURE: XR FOOT RT MIN 3 VIEWS COMPARISON: 09/02/2021 HISTORY: Pain in right foot FINDINGS: BONES:No fracture, acute abnormality, or significant arthropathy. SOFT TISSUES:Negative. No visible soft tissue swelling. EFFUSION:None visible. OTHER: Negative. IMPRESSION: No acute disease. Electronically authenticated by: VERONIKA HORTON Date: 2021-09-14 11:59[facility] [id number] NotePROCEDURE: XR FOOT RT MIN 3 VIEWS HISTORY: Pain in right leg ; lateral right foot pain for one month, no known injury COMPARISON: None. FINDINGS: BONES:No fracture, acute abnormality, or significant arthropathy. Prominent plantar arch which may be due to positioning. SOFT TISSUES:No visible soft tissue swelling. EFFUSION:None visible. OTHER: Negative. IMPRESSION: 1. No acute bone abnormality or significant degenerative changes. Electronically authenticated by: DORIE OROZCO Date: 2021-09-02 09:15[facility]al[facility] noteNo InformationNortLehigh [facility] Other Evaluation note* Diagnosis Basal cell carcinoma of skin of left lower limb, including hip- Primary documented [facility] this [facility] noteNo assessment information availableWex[facility] Work Phone: Histfdl general Narrative - Reported* Type Description Date Medical History HPV Medical History PAD Surgical History T&A Surgical History Right Shoulder, bone spur Surgical History Cervix, HPV Hospitalization History See past surgical hx [facility] Other Hishivv general Narrative - Reported* Type Description Date Medical History Acquired autoimmune hypothyroidi sm Medical History Acute bronchitis due to other sp ecified organisms Medical History Hypothyroid Medical History Elevated TSH Medical History Pure hypercholesterolemia Medical History BRBPR (bright red blood per rect um) Medical History Gastroesophageal ref lux disease with esophagitis without hemorrhage Medical History Peroneal tendinitis, right leg Medical History Varus deformity, not elsewhere classified, right ankle Medical History Contracture, right foot Medical History Valgus deformity, 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, right ankle Medical History Dysphagia, pharyngoesophageal Medical History 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, bilateral legs Medical History Chronic venous insufficiency Surgical History TONSILLECTOMY AND ADENOIDECTOMY 03/2010 Surgical History Right Shoulder, bone spur Surgical History Cervix, HPV Surgical History EGD WITH BALLOON DILATION, ESOP HAGUS Surgical History BENIGN LEFT BREAST BIOPSY Surgical History LEEP PROCEDURE 09/2008 Hospitalization History See past surgical hx [facility] Other Hisibad general Narrative - Reported* Type Description Date Medical History Acquired autoimmune hypothyroidi sm Medical History Acute bronchitis due to other sp ecified organisms Medical History Hypothyroid Medical History Elevated TSH Medical History Pure hypercholesterolemia Medical History BRBPR (bright red blood per rect um) Medical History Gastroesophageal ref lux disease with esophagitis without hemorrhage Medical History Peroneal tendinitis, right leg Medical History Varus deformity, not elsewhere classified, right ankle Medical History Contracture, right foot Medical History Valgus deformity, 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, right ankle Medical History Dysphagia, pharyngoesophageal Medical History 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, bilateral legs Medical History Chronic venous insufficiency Surgical History TONSILLECTOMY AND ADENOIDECTOMY 03/2010 Surgical History Right Shoulder, bone spur Surgical History Cervix, HPV Surgical History EGD WITH BALLOON DILATION, ESOP HAGUS Surgical History BENIGN LEFT BREAST BIOPSY Surgical History LEEP PROCEDURE 09/2008 Surgical History Colonoscopy 07/2020 Hospitalization History See past surgical hx [facility] Other Summary Purpose Family History No Family History Records Found Relationship Condition Age at Onset Recorded Date/T amy father Diabetes mellitus Unknown Unknown Hypertension Unknown Not Specified Family history of mental disorder Unknow n Malignant neoplasm Unknown Advance Directives No Advanced Directives Records Found Advance Directive Response Recorded Date/ Time Advance Directives No May 14, 2023 4:23pm Chief Complaint and Reason for Visit Chief Complaint Sinus Infection-Test ing For [id number] sinus infection Additional Source Comments REASON FOR VISIT (unrecogniz ed section and content) Reason Comments Follow-up INFORMATION SOURCE (unrecogn ized section and content) DATE CREATED AUTHOR 07/18/2022 [facility] DATE CREATED AUTHOR AUTHOR'S ORGANIZ ATION 11/24/[address] [facility] EPIC Care Teams (unrecognized sec tion and content) Team Status: Active Member Role Status Dates Ricky Parmar DO Primary Care Provider Active Team Status: Inactive Member Role Status Dates Ricky Parmar DO Attending Provider Active Sta rt: April 17, 2023 End: April 17, 2023 Team Status: Inactive Member Role Status Dates Ricky Parmar DO Primary Care Provide r, Attending Provider Active Start: June 29, 2023 End: June 29, 2023 Goals (unrecognized section and content) Goals may be documented in a n alternate section FOR RECORDS PERTAINING TO PATIENTS WHO ARE OR HAVE BEEN ENROLLED IN A CHEMICAL DEPENDENCY/SUBSTANCEABUSE PROGRAM, SOME INFORMATION MAY BE OMITTED. This clinical summary was aggregated from multiple sources. Caution should be exercised in using it in the provision of clinical care. This summary normalizes information from multiple sources, and as a consequence, information in this document may materially change the coding, format and clinical context of patient data. In addition, data may be omitted in some cases. CLINICAL DECISIONS SHOULD BE BASED ON THE PRIMARY CLINICAL RECORDS. [employer] [facility]. provides no warranty or guarantee of the accuracy or completeness of information in this document.
[2023-12-20 14:06] LABS: Basophils Absolute Auto 0.1 10^3/uL (0.0-0.1); Eosinophils Absolute Auto 0.2 10^3/uL (0.0-0.7); Hematocrit 39.5 % (36.0-48.0); Hemoglobin 13.2 g/dL (12.0-16.0); Immature Granulocytes Abs Auto 0.01 10^3/uL (0.00-0.03); Immature Granulocytes Pct Auto 0.1 % (0.0-0.5); Lymphocytes Absolute Auto 2.1 10^3/uL (1.2-3.8); Lymphocytes Percent Auto 30.7 % (20.5-60.0); Mean Corpuscular HGB Conc 33.4 g/dL (29.9-35.2); Mean Corpuscular Hemoglobin 30.2 pg (26.7-34.0); Mean Corpuscular Volume 90.4 fL (81.0-99.0); Monocytes Absolute Auto 0.6 10^3/uL (0.3-0.8); Monocytes Percent Auto 8.4 % (1.7-12.0); Neutrophils Absolute Auto 3.9 10^3/uL (1.4-6.5); Neutrophils Percent Auto 56.8 % (43.0-75.0); Platelet Count 317 10^3/uL (150-450); Red Blood Count 4.37 10^6/uL (4.20-5.40); Red Cell Distribution Width 13.3 % (11.0-15.0); White Blood Count 6.9 10^3/uL (4.0-11.0)
[2023-12-20 15:30] LABS: Alanine Aminotransferase 32 U/L (14-59); Albumin Level 3.7 g/dL (3.4-5.0); Alkaline Phosphatase 92 U/L (46-116); Anion Gap 9.7; Aspartate Amino Transferase 22 U/L (15-37); Bilirubin Total 0.3 mg/dL (0.2-1.0); Calcium 9.3 mg/dL (8.5-10.1); Carbon Dioxide 29.3 mmol/L (21.0-32.0); Chloride 102 mmol/L (98-107); Chol HDL Ratio 2.9; Cholesterol 261 mg/dL (<=200); Estimated GFR (African America >60 (>=60); Estimated GFR (Non-African Ame >60 (>=60); Globulin 3.8 g/dL; Glucose 73 mg/dL (74-106); HDL Cholesterol 90 mg/dL (40-60); Sodium 137 mmol/L (136-145); Total Protein 7.5 g/dL (6.4-8.2); Triglycerides 113 mg/dL (<=150); VLDL CHOLESTEROL 22.6 mg/dL
== END 2023-12-20 13:35 | disposition home or self-care (01) ==
LOC: LAB 13:36
PROVIDERS: PCP Internal Medicine; Visit Provider Internal Medicine
DX: Z00.00 Encounter for general adult medical examination without abnormal findings (principal)
CPT/HCPCS: 36415; 80053; 80061; 85025

== ENCOUNTER 2023-12-21 08:50 | Outpatient (OUT) | payer OTHER, SELFPAY ==
--- NOTE | 2023-12-21 08:55 | MM_ITS ---
Patient Name: NEMO VALERA MR#: [id number] : 1960 Exam Date: 12/21/2023 Ordering Doctor: LAWSON Cid . RADIOLOGY REPORT PROCEDURE: MM TOMOSYNTHESIS SCREENING BI COMPARISON: MG MAMM SCREEN 3D NORMA CAD, 06/09/2022. MG MAMM SCREEN 3D NORMA CAD, 06/03/2021. MG MAMM SCREEN NORMA W CAD, 06/01/2020. MG MAMM NORMA SCRN W CAD DIG, 04/24/2013. INDICATIONS: Screening Calculator Name NCI Breast Cancer Risk Assessment Tool 5 Year Breast Cancer Risk 1.80% Lifetime Breast Cancer Risk 8.50% Personal Breast Cancer No Personal Ovarian Cancer No Treatments None Family Cancers None LOCATION: [facility] BREAST COMPOSITION: The breasts are heterogeneously dense,which may obscure small masses. FINDINGS: DIAGNOSTIC CATEGORY 2--BENIGN FINDING: RIGHT BREAST: No significant suspicious finding. Scattered benign-appearing calcifications are present. No significant change has occurred. LEFT BREAST: No significant suspicious finding. Scattered benign-appearing calcifications are present. No significant change has occurred. RECOMMENDATIONS: ROUTINE MAMMOGRAM AND CLINICAL EVALUATION IN 12 MONTHS. PLEASE NOTE: A NORMAL MAMMOGRAM DOES NOT EXCLUDE THE POSSIBILITY OF BREAST CANCER. A CLINICALLY SUSPICIOUS PALPABLE LUMP SHOULD BE BIOPSIED. Dictated by: Rey Dinero M.D. on 12/21/2023 at 16:43 Approved by: Rey Dinero M.D. on 12/21/2023 at 16:45
--- NOTE | 2023-12-21 09:28 | XR_ITS ---
The [address] [address] Patient Name: NEMO VALERA MRN: [facility]:[id number] date: 1960 Sex: F Assigned Patient Location: [facility] Current Patient Location: [facility] Accession/Order Number: [id number] Exam Date: 12/21/2023 09:18 Report Date: 12/21/2023 11:44 At the request of: INGRID JUAREZ Procedure: XR DEXA axial skeleton EXAMINATION: XR DEXA axial skeleton HISTORY: Postmenopausal State Z78.0 COMPARISON: No relevant comparison available. TECHNIQUE: Dual-energy X-ray absorptiometry (DXA) was performed. FINDINGS: SPINE ANALYSIS: Average bone mineral density is 1.148 g/cm2. T-score (standard deviation relative to young adult mean): -0.3 . HIP ANALYSIS: Lowest bone mineral density is within the right femoral neck, 0.76 g/cm2. T-score (standard deviation relative to young adult mean): -1.8 . XR/XR DEXA axial skeleton IMPRESSION: World Health Organization Classification: Osteopenia - Moderate Fracture Risk FRAX: Cannot calculate. Pharmacologic treatment recommendations * No uniform recommendation applies to all patients. Management plans must be individualized. * Consider initiating pharmacologic treatment in postmenopausal women and men >= 50 years of age who have the following: Primary fracture prevention: * T-score <= - 2.5 at the femoral neck, total hip, lumbar spine, 33% radius (some uncertainty with existing data) by DXA. * Low bone mass (osteopenia: T-score between - 1.0 and - 2.5) at the femoral neck or total hip by DXA with a 10-year hip fracture risk >= 3% or a 10-year major osteoporosis-related fracture risk >= 20% (i.e., clinical vertebral, hip, forearm, or proximal humerus) based on the [place]-adapted FRAXregistered model. Secondary fracture prevention: * Fracture of the hip or vertebra regardless of BMD [4, 5]. * Fracture of proximal humerus, pelvis, or distal forearm in persons with low bone mass (osteopenia: T-score between - 1.0 and - 2.5). The decision to treat should be individualized in persons with a fracture of the proximal humerus, pelvis, or distal forearm who do not have osteopenia or low BMD [12, 13]. Nisa MS, Zoltan SL, Fabrizio KL, Fady EM, Shadi KG, AJ, Caitlyn ES. The clinician's guide to prevention and treatment of osteoporosis. Osteoporos Int. 2021;33(10):1187-2789. doi: 10.1007/i14343-995-40098-h. Epub 2021Aug 11. Erratum in: Osteoporos Int. 2021Nov 10;: PMID: [id number]; PMCID: [id number]. Electronically authenticated by: DORIE OROZCO Date: 12/21/2023 11:44
== END 2023-12-21 08:51 | disposition home or self-care (01) ==
LOC: MAMMO 08:50
PROVIDERS: PCP Internal Medicine; Visit Provider Physician Assistant
DX: Z12.31 Encounter for screening mammogram for malignant neoplasm of breast (principal); Z78.0 Asymptomatic menopausal state; M85.80 Other specified disorders of bone density and structure, unspecified site
CPT/HCPCS: 77063; 77067; 77080

== ENCOUNTER 2024-11-26 12:20 | Outpatient (REF) | payer OTHER, SELFPAY ==
--- OUTSIDE RECORDS SUMMARY | 2024-11-26 12:26 | XMS_ITS | CCD ---
Author Organization [facility] Care Team Providers Care Sole Buffer Name Role Phone Mary Menard Unavailable Ricky Parmar Unavailable GHULAM, DR BOUCHER Consulting Unavailable BALL, DR BOUCHER Primary Care Unavailable BALL, DR BOUCHER Attending Unavailable BALL, DR BOUCHER Admitting Unavailable ZIEBER, DR DORIE Alberto Consulting Unavailable HIGHLANDER, NATA Siegel Consulting Unavailable BALL, DR BOUCHER Primary Care Unavailable HIGHLANDER, NATA Siegel Attending Unavailable HIGHLANDER, NATA Siegel Admitting Unavailable KLIPPER, VERONIKA Lau Unavailable WEST, DR VERONIKA Moartaya Consulting Unavailable BALL, DR BOUCHER Primary Care [...] Unavailable BALL, DR BOUCHER Primary Care Unavailable GHULAM, DR BOUCHER Attending Unavailable GHULAM, DR BOUCHER Admitting Unavailable REQUEST, DR CHANG LISTED Attending Unavaila ble REQUEST, DR CHANG LISTED Admitting Unavaila ble GHULAM, DR BOUCHER Consulting Unavailable GHULAM, DR BOUCHER Primary Care Unavailable CAGUAS, DR VERONIKA Morataya Consulting Unavailable GHULAM, DR BOUCHER Primary Care Unavailable ELAINE, NATA Siegel Attending Unavailable ELAINE, NATA Siegel Admitting Unavailable ELAINE, NATA Siegel Consulting Unavailable Unavailable Primary Care Provider UnavailILIANA Ontiveros Attending Unavailable PADDY, ILIANA Pitts Attending Unavailable PADDY, ILIANA Pitts Attending Unavailable AMARIS JUAREZ Attending Unavailable ADRIANA WADDELL Attending Unavailable Ghulam TILLEY, Ricky Bell Primary Care Provider Ricky Parmar DO Primary Care Provider Allergies Allergy Classification Reported Allergen(s) Allergy Type Date of Onset Reaction(s) Facility (9 sources) Pollen Drug allergy 4 Unknown [facility] Work Phone: (6 sources) Insect Stings Propensity to adverse reactions 4 Unknown, Unknown Reaction [facility] (4 sources) Pollen Allergy to substance 4 Unknown Reaction [facility] Medications Current Medications Medication Drug Class(es) Dates Sig (Normalized) Sig (Original) aspirin 81 mg delayed release oral tablet (20 sources) Platelet Aggregation Inhibitor, Nonsteroidal Anti-inflammatory Drug Start: 08-20-2023 take 1 tablet by mouth once daily Aspirin 81 mg tablet,delayed release (DR/EC) Active 0 .ROUTE .COMPLEX 90 August 20, 2023 6:06pm TAKE 1 TABLET BY MOUTH EVERY DAY FOR 30 DAYS Start: 08-20-2023 End: 08-20-2023 take 1 capsule by mouth once daily Aspirin 81 mg capsule Discontinued 81 MG PO Daily August 20, 2023 12:00am August 20, 2023 6:06pm Start: 05-24-2023 take 1 tablet by chanda th once daily [facility] Aspirin Low Dose 81 MG EC tablet TAKE 1 TABLET BY MOUTH EVERY DAY FOR 30 DAYS 05/24/2023 Active Start: 07-14-2022 take 1 tablet by chanda th every twenty-four hours Aspirin 81 81 MG 1 tablet Orally Once a day Jun, Active Baby Aspirin 81 MG Active Baby Aspirin Act alfred azithromycin 250 mg oral tablet (16 sources) Macrolide Antimicrobial Start: 04-29-2024 End: 08-07-2024 Azithromycin 250 mg tablet Active 0 PO daily 6 August 07, 2024 12:00am Take 2 on day 1 and then take 1 for the next 4 days (days 2-5) Start: 06-29-2023 End: 12-24-2023 Azithromycin 250 mg tablet D iscontinued 250 MG PO As Directed 09 18June 29, 2023 12:00am December 24, 2023 9:01am Start: 08-09-2022 Azithromycin 2 50 MG as directed Orally daily for 5 days Apr, Active Start: 01-24-2022 Azithromycin 2 50 MG 2 tablet on the first day, then 1 tablet daily for 4 days Orally Once a day for 5 day(s) Jan, Not-Taking/PRN levothyroxine sodium 0.1 mg oral tablet (20 sources) l-Thyroxine Start: 12-24-2023 End: 05-13-2024 take 1 tablet by mouth once daily Levothyroxine 100 mcg tablet Active 100 MCG PO Daily May 13, 2024 11:55am Start: 10-11-2023 End: 12-24-2023 take 1 tablet by mouth once daily in the morning Levothyroxine 112 mcg tablet Discontinued 0 .ROUTE .COMPLEX October 11, 2023 5:54pm December 24, 2023 9:35am TAKE 1 TABLET BY MOUTH EVERY DAY IN THE MORNING ON EMPTY STOMACH FOR 90 DAYS Start: 04-04-2023 End: 10-11-2023 levothyroxine (Synthroid, Le voxyl) 112 MCG tablet 04/04/2023 Active take 1 tablet by chanda once daily in the morning Levothyroxine Sodium [...] specified organisms] Episodic Disorders of lipid metabolism (12 sources) Pure hypercholesterolemia; Translations: [Pure hypercholesterolemia, unspecified] [...] Episodic Other diseases of veins and lymphatics (9 sources) Peripheral venous insufficiency; Translations: [Venous insufficiency (chronic) (peripheral)] 12-20-2023 Episodic Other diseases of veins and lymphatics (2 sources) Venous insufficiency (chronic) (peripheral); Translations: [Venous (peripheral) insufficiency, unspecified] Episodic Other diseases of veins and lymphatics (3 sources) Venous insufficiency of leg; Translations: [Venous insufficiency (chronic) (peripheral)] 12-24-2023 Episodic Other gastrointestinal disorders (5 sources) Pharyngeal dysphagia; Translations: [Dysphagia, pharyngoesophageal phase] Episodic Other gastrointestinal disorders (1 source) Dysphagia, pharyngoesophageal phase; Translations: [Dysphagia, pharyngoesophageal] Episodic Other non-epithelial cancer of skin (1 source) Basal cell carcinoma of lower extremity; Translations: [Basal cell carcinoma of skin of left lower limb, including hip] 05-23-2023 Episodic Other screening for suspected conditions (not mental disorders or infectious disease) (18 sources) Raised TSH level; Translations: [Other specified abnormal findings of blood chemistry] Onset: 2 Episodic Other upper respiratory disease (6 sources) Bleeding from nose; Translations: [Epistaxis] Episodic Other upper respiratory disease (1 source) Epistaxis Episodic Other upper respiratory infections (2 sources) Maxillary sinusitis; Translations: [Chronic maxillary sinusitis] 08-07-2024 Chronic Other upper respiratory infections (2 sources) Acute maxillary sinusitis, unspecified; Translations: [Acute sinusitis] Episodic Peripheral and visceral atherosclerosis (20 sources) Other atherosclerosis of [place] arteries of extremities, bilateral legs; Translations: [Peripheral vascular disease, unspecified] Chronic Residual codes; unclassified (2 sources) Postmenopausal state; Translations: [Asymptomatic menopausal state] 11-26-2024 Episodic Substance-related disorders (9 sources) Tobacco dependence in remission; Translations: [Nicotine [...] reflux disease with esophagitis without hemorrhage] Other bone disease and musculoskeletal deformities (10 sources) Osteopenia; Translations: [Other specified disorders of bone density and structure, unspecified site] Onset: 01-14-2024 12-21-2023 Episodic Other connective tissue disease (1 source) Other [...] Test Name Value Interpretation Reference Range Facility Basophils Auto (Bld) [#/Vol] on 12-20-2023 Basophils (Bld) [#/Vol] 0.1 10 3/uL 0.0-0.1 [facility] Basophils/100 WBC Auto (Bld) on 12-20-2023 Basophils/100 WBC (Bld) 1.0 % 0.2-2.0 [facility] Cholesterol in LDL Calc [Mas s/Vol]on 12-20-2023 Cholesterol in LDL [Mass/Vol] 149.0 mg/dL [facility] Comment on above: <100 mg/dl [id number] 0-129 mg/dl NEAR OR ABOVE [id number] mg/dl BORDERLINE [id number] mg/dl HIGH>190 mg/dl VERY HIGH Cholesterol in VLDL Calc [Ma ss/Vol]on 12-20-2023 Cholesterol in VLDL [Mass/Vol] 22.6 mg/dL [facility] Eosinophils/100 WBC Auto (Bl d)on 12-20-2023 Eosinophils/100 WBC (Bld) 3.0 % 0.9-7.0 [facility] Erythrocyte distribution wid th Auto (RBC) [Ratio]on 12-20-2023 Erythrocyte distribution width (RBC) [Ratio] 13.3 % 11.0-15.0 [facility] Estimated glomerular filtrat ion rate (GFR) non- Americanon 12-20-2023 GFR/1.73 sq M.predicted among non-blacks MDRD (S/P/Bld) [Vol rate/Area] mL/min/{1.73_m2} >=60 [facility] Globulin Calc (S) [Mass/Vol] on 12-20-2023 Globulin (S) [Mass/Vol] 3.8 g/dL [facility] Hematocrit Auto (Bld) [Volum e fraction]on 12-20-2023 Hematocrit (Bld) [Volume fraction] 39.5 % 36.0-48.0 [facility] Hemoglobin [Mass/volume] in Bloodon 12-20-2023 Hemoglobin (Bld) [Mass/Vol] 13.2 g/dL 12.0-16.0 [facility] Laboratory - Chemistry and C hemistry - challengeon 12-20-2023 Albumin [Mass/Vol] 3.7 g/dL 3.4-5.0 [facility] ALP [Catalytic activity/Vol] 92 U/L 46-116 [facility] ALT [Catalytic activity/Vol] 32 U/L 14-59 [facility] AST [Catalytic activity/Vol] 22 U/L 15-37 [facility] Bilirubin [Mass/Vol] 0.3 mg/dL 0.2-1.0 [facility] Calcium [Mass/Vol] 9.3 mg/dL 8.5-10.1 [facility] Chloride [Moles/Vol] 102 mmol/L 98-107 [facility] Cholesterol [Mass/Vol] 261 mg/dL High <=200 [facility] Cholesterol in HDL [Mass/Vol] 90 mg/dL High 40-60 [facility] Comment on above: > or =60 mg/dl - LOW CARDIOVASCULAR RISK<40 mg/dl - HIGH CARDIOVASCULAR RISK CO2 [Moles/Vol] 29.3 mmol/L 21.0-32.0 [facility] Creatinine [Mass/Vol] 0.70 mg/dL 0.55-1.02 [facility] GFR/1.73 sq M.predicted MDRD (S/P/Bld) [Vol rate/Area] mL/min/{1.73_m2} >=60 [facility] Glucose [Mass/Vol] 73 mg/dL Low 74-106 [facility] Potassium [Moles/Vol] 4.0 mmol/L 3.5-5.1 [facility] Protein [Mass/Vol] 7.5 g/dL 6.4-8.2 [facility] Sodium [Moles/Vol] 137 mmol/L 136-145 [facility] Triglyceride [Mass/Vol] 113 mg/dL <=150 [facility] TSH Qn 0.020 m[IU]/L Low 0.358-3.740 [facility] Urea nitrogen [Mass/Vol] 14.0 mg/dL 7.0-18.0 [facility] Urea nitrogen/Creatinine [Mass ratio] 20.0 mg/mg [facility] Laboratory - Hematology and Cell countson 12-20-2023 Immature granulocytes/100 WBC (Bld) 0.1 % 0.0-0.5 [facility] Leukocytes [#/volume] correc trevor for nucleated erythrocytes in Blood by Automated counon 12-20-2023 WBC corrected for nucl RBC Auto (Bld) [#/Vol] 6.9 10 3/uL 4.0-11.0 [facility] Lymphocytes Auto (Bld) [#/Vo l]on 12-20-2023 Lymphocytes (Bld) [#/Vol] 2.1 10 3/uL 1.2-3.8 [facility] Lymphocytes/100 WBC Auto (Bl d)on 12-20-2023 Lymphocytes/100 WBC (Bld) 30.7 % 20.5-60.0 [facility] MCH Auto (RBC) [Entitic mass ]on 12-20-2023 MCH (RBC) [Entitic mass] 30.2 pg 26.7-34.0 [facility] MCHC Auto (RBC) [Mass/Vol]on 12-20-2023 MCHC (RBC) [Mass/Vol] 33.4 g/dL 29.9-35.2 [facility] MCV Auto (RBC) [Entitic vol] on 12-20-2023 MCV (RBC) [Entitic vol] 90.4 fL 81.0-99.0 [facility] Monocytes Auto (Bld) [#/Vol] on 12-20-2023 Monocytes (Bld) [#/Vol] 0.6 10 3/uL 0.3-0.8 [facility] Monocytes/100 WBC Auto (Bld) on 12-20-2023 Monocytes/100 WBC (Bld) 8.4 % 1.7-12.0 [facility] Neutrophils Auto (Bld) [#/Vo l]on 12-20-2023 Neutrophils (Bld) [#/Vol] 3.9 10 3/uL 1.4-6.5 [facility] Neutrophils/100 WBC Auto (Bl d)on 12-20-2023 Neutrophils/100 WBC (Bld) 56.8 % 43.0-75.0 [facility] No Panel Informationon 12-19 Eosinophils # (Auto) 0.2 10 3/uL 0.0-0.7 [facility] Immature Granulocyte # (Auto) 0.01 10 3/uL 0.00-0.03 [facility] Platelet mean volume Auto (B ld) [Entitic vol]on 12-20-2023 Platelet mean volume (Bld) [Entitic vol] 9.0 fL Low 9.5-13.5 [facility] Platelets Auto (Bld) [#/Vol] on 12-20-2023 Platelets (Bld) [#/Vol] 317 10 3/uL 150-450 [facility] RBC Auto (Bld) [#/Vol]on RBC (Bld) [#/Vol] 4.37 10 6/uL 4.20-5.40 [facility] Serum or plasma albumin/glob ulin mass ratioon 12-20-2023 Albumin/Globulin [Mass ratio] 1.0 {ratio} [facility] Serum or plasma anion gap de terminationon 12-20-2023 Anion gap [Moles/Vol] 9.7 mmol/L [facility] Serum or plasma total choles terol/high density lipoprotein (HDL) cholesterol mass jose 12-20-2023 Cholesterol.total/Ch olesterol in HDL [Mass ratio] 2.9 {ratio} [facility] Comment on above: 3.3 - 4.4 LOW RISK4. 4 - 7.1 AVERAGE RISK7.1 - 11.0 MODERATE RISK>11.0 HIGH RISK Human papilloma virus 16+18+ 31+33+35+39+45+51+52+56+58+59+66+68 DNA [Presence] in Josefina 11-22-2023 HPV 16+18+31+33+35+39+45 +51+52+56+58+59+66+6 8 DNA Probe+sig amp Ql (Cvx) Negative Negative [facility] Comment on above: This nucleic acid am plification test detects fourteen high- risk HPV types (16,18,31,33,35,39,45,51,52,56,58,59,66,68)without differentiation.Performed at: =G - [facility] [id number] [place], [place] [id number] Director: Desi Harris MD, Phone: [phone] at: WB - [facility] [id number] [facility], [place] [id number] Director: Desi Harris MD, Phone: [phone] No Panel Informationon 11-21 HPV High Risk Other Comment Note . [facility] Comment on above: TESTS RESULT FLAG UN ITS REF RANGE LAB DI AGNOSIS: 02 NEGATIVE FOR INTRAEPITHELIAL LESION OR MALIGNANCY. CELLULAR CHANGES ASSOCIATED WITH ATROPHY ARE PRESENT.Specimen adequacy: 02 Satisfactory for evaluation. Endocervical component may not be distinguished in cases of atrophy.Performed by: 02 Magui Flores, Inspector Golf Ball ([facility]). 02Note: Note 02 The Pap smear is a screening test designed to aid in the detection of premalignant and malignant conditions of the uterine cervix. It is not a diagnostic procedure and should not be used as the sole means of detecting cervical cancer. Both false-positive and false-negative reports do occur.Test Methodology: Note 02 This liquid based ThinPrep(R) pap test was screened with the use of an image guided system.HPV Genotype Reflex Note 02 Criteria not met, HPV Genotype not performed. ----- FLAG LEGEND: L-Low Normal,H-High Normal,LL-Alert Low,HH-Alert High <-Panic Low,>-Panic High,A-Abnormal,AA-Critical Abnormal ---Performed at:02 WB [facility] [address] [place] [address] Desi Harris MD, Reference Lab Test Patient Age Note . [facility] Comment on above: TESTS RESULT FLAG UN ITS REF RANGE LAB Clinician Provided Cytology Information Source.............Cervix;Endocervix No. of containers..01 ThinPrep VialAge Algo ACOG Jazmine... FLAG LEGEND: L-Low Normal,H-High Normal,LL-Alert Low,HH-Alert High <-Panic Low,>-Panic High,A-Abnormal,AA-Critical Abnormal ---Performed at:01 =G [facility] [address] [place] [address] Desi Harris MD, Destr of lesionon 05-23-2023 Complexity: simple Destruction method: electrodesiccation and curettage Informed consent: discussed and consent obtained Informed consent comment: The risks of the procedure were discussed, including, but not limited to risks of scarring, darker or senior information security engineer pigmentary changes, recurrence, infection, and incomplete removal [...] lidocaine used: 1.0 cc Previous accession number: [id number] [facility]ly [facility], 1928–1983 [place] - TSHon 07-13-2022 TSH 0.013 uIU/mL Critically low 0.358-3.740 [facility] Comment on above: Performed By: #### D ATTSH #### [facility] [address] [place] [address] Dr. Yordan Ferguson TSH RANGE SEE BELOW Normal [facility] Comment on above: Result Comment: <0.3 4 UIU/ml HYPERTHYROID 0.34-5.60 UIU/ml EUTHYROID >5.60 UIU/ml HYPOTHYROID Performed By: #### D ATTSH #### [facility] [address] [place] [address] Dr. Yordan Ferguson [place] - TSHon 06-12-2022 TSH 0.020 uIU/mL Critically low 0.358-3.740 [facility] Comment on above: Performed By: #### D ATTSH #### [facility] [address] [place] [address] Dr. Yordan Ferguson TSH RANGE SEE BELOW Normal [facility] Comment on above: Result Comment: <0.3 4 UIU/ml HYPERTHYROID 0.34-5.60 UIU/ml EUTHYROID >5.60 UIU/ml HYPOTHYROID Performed By: #### D ATTSH #### [facility] [address] [place] [address] Dr. Yordan Ferguson MG MAMM SCREEN 3D NORMA CADon 06-09-2022 MG MAMM SCREEN 3D NORMA CAD Patient: FIORDALIZA LOPEZ Exam Date: 06/09/2022 : 1960 Gender:F Ordering : DR RICKY PARMAR D.O. Admission #: [id number] Family : Order #: [id number] CLICK HERE TO VIEW EXAM RADIOLOGY REPORT [...] Treatments None Family Cancers None LOCATION: [facility] BREAST COMPOSITION: Heterogeneously dense,which may obscure small [...] Horton MD on 06/09/2022 at 10:28 Normal [facility] TSHon 03-20-2022 TSH 0.072 uIU/mL Critically low 0.358-3.740 [facility] Comment on above: Performed By: #### T SH #### [facility] [address] [address] [address] Yordan Ferguson TSHon 02-01-2022 TSH 42.462 uIU/mL Critically high 0.358-3.740 [facility] Comment on above: Performed By: #### T SH #### [facility] [address] [place] [address] Dr. Yordan Ferguson MRI ANKLE RT WO CONon 2021 MRI ANKLE RT WO CON EXAM: MRI ANKLE RT W O CON HISTORY: Ankle pain COMPARISON: X-rays 12/20/2021 [...] VERONIKA BANERJEE Date: 2022-01-07 22:45 Normal [facility] T3, TOTAL (TRIIODOTHYRONINE) on 12-15-2021 T3, TOTAL 75 ng/dL Normal 71-180 [facility] Comment on above: Performed By: #### T 3TOTAL #### [facility] [address] [address] [address] Yordan Ferguson THYROID PEROXIDASE ABon 09-0 Thyroid Peroxidase (TPO) Ab 244 IU/mL Critically high 0-34 [facility] Comment on above: Performed By: #### T POAB #### [facility] [address] [address] [address] Yordan Ferguson US THYROIDon 12-14-2021 US THYROID EXAMINATION: US THYROID HISTORY: Hypothyroidism COMPARISON: No relevant comparison available. [...] by: DORIE OROZCO Date: 2021-12-14 07:04 Normal [facility] FREE T4on 12-13-2021 Free T4 [Mass/Vol] 0.43 ng/dL Critically low 0.76-1.46 [facility] Comment on above: Performed By: #### D ATTSH #### [facility] [address] [place] [address] Dr. Yordan Ferguson TSHon 12-13-2021 TSH 65.911 uIU/mL Critically high 0.358-3.740 [facility] Comment on above: Performed By: #### T SH #### [facility] [address] [place] [address] Dr. Yordan Ferguson [facility] CBC AUTO DIFFon 12-01-2021 BASO # 0.1 103/ul Normal 0.0-0.1 [facility] Comment on above: Performed By: #### D ATTSH #### [facility] [address] [place] [address] Dr. Yordan Ferguson Basophils/100 WBC (Bld) 1.1 % Normal 0.2-2.0 [facility] Comment on above: Performed By: #### D ATTSH #### [facility] [address] [place] [address] Dr. Yordan Ferguson EO # 0.4 103/ul Normal 0.0-0.7 [facility] Comment on above: Performed By: #### D ATTSH #### [facility] [address] [place] [address] Dr. Yordan Ferguson Eosinophils/100 WBC (Bld) 6.5 % Normal 0.9-7.0 [facility] Comment on above: Performed By: #### D ATTSH #### [facility] [address] [place] [address] Dr. Yordan Ferguson Erythrocyte distribution width (RBC) [Ratio] 13.6 % Normal 11.0-15.0 [facility] Comment on above: Performed By: #### D ATTSH #### [facility] [address] [place] [address] Dr. Yordan Ferguson Hematocrit (Bld) [Volume fraction] 40.6 % Normal 36.0-48.0 [facility] Comment on above: Performed By: #### D ATTSH #### [facility] [address] [place] [address] Dr. Yordan Ferguson Hemoglobin (Bld) [Mass/Vol] 13.4 g/dL Normal 12.0-16.0 [facility] Comment on above: Performed By: #### D ATTSH #### [facility] [address] [place] [address] Dr. Yordan Ferguson IG # 0.01 10e3/ul Normal 0.00-0.03 [facility] Comment on above: Performed By: #### D ATTSH #### [facility] [address] [place] [address] Dr. Yordan Ferguson IG % 0.2 % Normal 0.0-0.5 [facility] Comment on above: Performed By: #### D ATTSH #### [facility] [address] [place] [address] Dr. Yordan Ferguson LYMPH # 2.1 103/ul Normal 1.2-3.8 [facility] Comment on above: Performed By: #### D ATTSH #### [facility] [address] [place] [address] Dr. Yordan Ferguson Lymphocytes/100 WBC (Bld) 31.7 % Normal 20.5-60.0 [facility] Comment on above: Performed By: #### D ATTSH #### [facility] [address] [place] [address] Dr. Yordan Ferguson MCH (RBC) [Entitic mass] 31.6 pg Normal 26.7-34.0 [facility] Comment on above: Performed By: #### D ATTSH #### [facility] [address] [place] [address] Dr. Yordan Ferguson MCHC (RBC) [Mass/Vol] 33.0 g/dL Normal 29.9-35.2 [facility] Comment on above: Performed By: #### D ATTSH #### [facility] [address] [place] [address] Dr. Yordan Ferguson MCV (RBC) [Entitic vol] 95.8 fL Normal 81.0-99.0 [facility] Comment on above: Performed By: #### D ATTSH #### [facility] [address] [place] [address] Dr. Yordan Ferguson MONO # 0.6 103/ul Normal 0.3-0.8 [facility] Comment on above: Performed By: #### D ATTSH #### [facility] [address] [place] [address] Dr. Yordan Ferguson Monocytes/100 WBC (Bld) 8.6 % Normal 1.7-12.0 [facility] Comment on above: Performed By: #### D ATTSH #### [facility] [address] [place] [address] Dr. Yordan Ferguson NEUT # 3.4 103/ul Normal 1.4-6.5 [facility] Comment on above: Performed By: #### D ATTSH #### [facility] [address] [place] [address] Dr. Yordan Ferguson Neutrophils/100 WBC (Bld) 51.9 % Normal 43.0-75.0 [facility] Comment on above: Performed By: #### D ATTSH #### [facility] [address] [place] [address] Dr. Yordan Ferguson Platelet mean volume (Bld) [Entitic vol] 9.0 fL Critically low 9.5-13.5 [facility] Comment on above: Performed By: #### D ATTSH #### [facility] [address] [place] [address] Dr. Yoradn Ferguson PLT 307 103/ul Normal 150-450 [facility] Comment on above: Performed By: #### D ATTSH #### [facility] [address] [address] [address] Yordan Ferguson RBC 4.24 106/ul Normal 4.20-5.40 [facility] [facility] Comment on above: Performed By: #### D ATTSH #### [facility] [address] [address] [address] Yordan Ferguson WBC 6.5 103/ul Normal 4.0-11.0 [facility] Comment on above: Performed By: #### D ATTSH #### [facility] [address] [address] [address] Yordan Ferguson [employer] PROFILEon 022 Albumin [Mass/Vol] 4.4 g/dL Normal 3.4-5.0 [facility] Comment on above: Performed By: #### H FPF #### [facility] [address] [place] [address] Dr. Yordan Ferguson Albumin/Globulin [Mass ratio] 1.2 {ratio} Normal [facility] Comment on above: Performed By: #### H FPF #### [facility] [address] [place] [address] Dr. Yordan Ferguson ALP [Catalytic activity/Vol] 75 U/L Normal 46-116 [facility] Comment on above: Performed By: #### H FPF #### [facility] [address] [place] [address] Dr. Yordan Ferguson ALT [Catalytic activity/Vol] 33 U/L Normal 14-59 [facility] Comment on above: Performed By: #### H FPF #### [facility] [address] [place] [address] Dr. Yordan Ferguson AST [Catalytic activity/Vol] 29 U/L Normal 15-37 [facility] Comment on above: Performed By: #### H FPF #### [facility] [address] [place] [address] Dr. Yordan Ferugson Bilirubin [Mass/Vol] 0.3 mg/dL Normal 0.2-1.0 [facility] Comment on above: Performed By: #### H FPF #### [facility] [address] [address] [address] Yordan Ferguson Calcium [Mass/Vol] 9.3 mg/dL Normal 8.5-10.1 [facility] Comment on above: Performed By: #### H FPF #### [facility] [address] [address] [address] Yordan Ferguson Chloride [Moles/Vol] 103 mmol/L Normal 98-107 [facility] Comment on above: Performed By: #### H FPF #### [facility] [address] [address] [address] Yordan Ferguson CHOL-HDL RATIO NORM SEE BELOW Normal [facility] Comment on above: Result Comment: 3.3 - 4.4 LOW RISK 4.4 - 7.1 AVERAGE RISK 7.1 - 11.0 MODERATE RISK >11.0 HIGH RISK Performed By: #### H FPF #### [facility] [address] [place] [address] Dr. Yordan Ferguson Cholesterol [Mass/Vol] 214 mg/dL Critically high <=200 [facility] Comment on above: Performed By: #### H FPF #### [facility] [address] [place] [address] Dr. Yordan Ferguson Cholesterol in HDL [Mass/Vol] 87 mg/dL Critically high 40-60 [facility] Comment on above: Performed By: #### H FPF #### [facility] [address] [address] [address] Yordan Ferguson Cholesterol in LDL [Mass/Vol] 111.2 mg/dL Normal [facility] Comment on above: Performed By: #### H FPF #### [facility] [address] [place] [address] Dr. Yordan Ferguson Cholesterol.total/Ch olesterol in HDL [Mass ratio] 2.5 {ratio} Normal [facility] Comment on above: Performed By: #### H FPF #### [facility] [address] [place] [address] Dr. Yordan Ferguson CO2 [Moles/Vol] 28.0 mmol/L Normal 21.0-32.0 [facility] Comment on above: Performed By: #### H FPF #### [facility] [address] [address] [address] Yordan Ferguson Creatinine [Mass/Vol] 0.83 mg/dL Normal 0.55-1.02 [facility] Comment on above: Performed By: #### H FPF #### [facility] [address] [address] [address] Yordan Ferguson Globulin (S) [Mass/Vol] 3.6 g/dL Normal [facility] Comment on above: Performed By: #### H FPF #### [facility] [address] [address] [address] Yordan Ferguson Glucose [Mass/Vol] 86 mg/dL Normal 74-106 [facility] Comment on above: Performed By: #### H FPF #### [facility] [address] [address] [address] Yordan Ferguson HDL NORMAL > or = 60 mg/dl - LO W CARDIOVASCULAR RISK <40 mg/dl - HIGH CARDIOVASCULAR RISK Normal [facility] Comment on above: Performed By: #### H FPF #### [facility] [address] [address] [address] Yordan Ferguson LDL CALC NORMAL SEE BELOW Normal [facility] Comment on above: Result Comment: <100 mg/dl OPTIMAL 100 - 129 mg/dl NEAR OR ABOVE OPTIMAL 130 - 159 mg/dl BORDERLINE HIGH 160 - 189 mg/dl HIGH >190 mg/dl VERY HIGH Performed By: #### H FPF #### [facility] [address] [address] [address] Yordan Ferguson Potassium [Moles/Vol] 4.4 mmol/L Normal 3.5-5.1 [facility] Comment on above: Performed By: #### H FPF #### [facility] [address] [address] [address] Yordan Ferguson Protein [Mass/Vol] 8.0 g/dL Normal 6.4-8.2 [facility] [place] Comment on above: Performed By: #### H FPF #### [facility] [address] [address] [address] Yordan Ferguson Sodium [Moles/Vol] 140 mmol/L Normal 136-145 [facility] Comment on above: Performed By: #### H FPF #### [facility] [address] [place] [address] Dr. Yordan Ferguson Triglyceride [Mass/Vol] 79 mg/dL Normal <=150 [facility] Comment on above: Performed By: #### H FPF #### [facility] [address] [place] [address] Dr. Yordan Ferguson TSH 98.063 uIU/mL Critically high 0.358-3.740 [facility] Comment on above: Result Comment: RERA N SPECIMEN PER PHYSICIAN REQUEST 12/06/21 DUPLICATED WELL @ 102.38 uIU/ml Performed By: #### H FPF #### [facility] [address] [place] [address] Dr. Yordan Ferguson Urea nitrogen [Mass/Vol] 17.0 mg/dL Normal 7.0-18.0 [facility] Comment on above: Performed By: #### H FPF #### [facility] [address] [place] [address] Dr. Yordan Ferguson Urea nitrogen/Creatinine [Mass ratio] 20.5 mg/mg Normal [facility] Comment on above: Performed By: #### H FPF #### [facility] [address] [address] [address] Yordan Ferguson VLDL CALC 15.8 mg/dL Normal [facility] Comment on above: Performed By: #### H FPF #### [facility] [address] [place] [address] Dr. Yordan Ferguson CBC AUTO DIFFon 09-09-2021 BASO # 0.1 103/ul Normal 0.0-0.1 [facility] Comment on above: Performed By: #### D ATCBC #### [facility] [address] [place] [address] Dr. Yordan Ferguson Basophils/100 WBC (Bld) 1.4 % Normal 0.2-2.0 [facility] Comment on above: Performed By: #### D ATCBC #### [facility] [address] [place] [address] Dr. Yordan Ferguson EO # 0.4 103/ul Normal 0.0-0.7 [facility] Comment on above: Performed By: #### D ATCBC #### [facility] [address] [place] [address] Dr. Yordan Ferguson Eosinophils/100 WBC (Bld) 6.6 % Normal 0.9-7.0 [facility] Comment on above: Performed By: #### D ATCBC #### [facility] [address] [place] [address] Dr. Yordan Ferguson Erythrocyte distribution width (RBC) [Ratio] 14.6 % Normal 11.0-15.0 [facility] Comment on above: Performed By: #### D ATCBC #### [facility] [address] [place] [address] Dr. Yordan Ferguson Hematocrit (Bld) [Volume fraction] 39.5 % Normal 36.0-48.0 [facility] Comment on above: Performed By: #### D ATCBC #### [facility] [address] [place] [address] Dr. Yordan Ferguson Hemoglobin (Bld) [Mass/Vol] 12.9 g/dL Normal 12.0-16.0 [facility] Comment on above: Performed By: #### D ATCBC #### [facility] [address] [place] [address] Dr. Yordan Ferguson IG # 0.01 10e3/ul Normal 0.00-0.03 [facility] Comment on above: Performed By: #### D ATCBC #### [facility] [address] [place] [address] Dr. Yordan Ferguson IG % 0.2 % Normal 0.0-0.5 [facility] Comment on above: Performed By: #### D ATCBC #### [facility] [address] [place] [address] Dr. Yordan Ferguson LYMPH # 1.9 103/ul Normal 1.2-3.8 [facility] Comment on above: Performed By: #### D ATCBC #### [facility] [address] [place] [address] Dr. Yordan Ferguson Lymphocytes/100 WBC (Bld) 32.6 % Normal 20.5-60.0 [facility] Comment on above: Performed By: #### D ATCBC #### [facility] [address] [place] [address] Dr. Yordan Ferguson MCH (RBC) [Entitic mass] 30.9 pg Normal 26.7-34.0 [facility] Comment on above: Performed By: #### D ATCBC #### [facility] [address] [place] [address] Dr. Yordan Ferguson MCHC (RBC) [Mass/Vol] 32.7 g/dL Normal 29.9-35.2 [facility] Comment on above: Performed By: #### D ATCBC #### [facility] [address] [place] [address] Dr. Yordan Ferguson MCV (RBC) [Entitic vol] 94.5 fL Normal 81.0-99.0 [facility] Comment on above: Performed By: #### D ATCBC #### [facility] [address] [place] [address] Dr. Yordan Ferguson MONO # 0.5 103/ul Normal 0.3-0.8 [facility] Comment on above: Performed By: #### D ATCBC #### [facility] [address] [place] [address] Dr. Yordan Ferguson Monocytes/100 WBC (Bld) 7.8 % Normal 1.7-12.0 [facility] Comment on above: Performed By: #### D ATCBC #### [facility] [address] [place] [address] Dr. Yordan Ferguson NEUT # 3.0 103/ul Normal 1.4-6.5 [facility] Comment on above: Performed By: #### D ATCBC #### [facility] [address] [place] [address] Dr. Yordan Ferguson Neutrophils/100 WBC (Bld) 51.4 % Normal 43.0-75.0 [facility] Comment on above: Performed By: #### D ATCBC #### [facility] [address] [place] [address] Dr. Yordan Ferguson Platelet mean volume (Bld) [Entitic vol] 8.5 fL Critically low 9.5-13.5 [facility] Comment on above: Performed By: #### D ATCBC #### [facility] [address] [place] [address] Dr. Yordan Ferguson PLT 297 103/ul Normal 150-450 [facility] Comment on above: Performed By: #### D ATCBC #### [facility] [address] [place] [address] Dr. Yordan Ferguson RBC 4.18 106/ul Critically low 4.20-5.40 [facility] Comment on above: Performed By: #### D ATCBC #### [facility] [address] [place] [address] Dr. Yordan Ferguson WBC 5.8 103/ul Normal 4.0-11.0 [facility] Comment on above: Performed By: #### D ATCBC #### [facility] [address] [place] [address] Dr. Yordan Ferguson HOLLAND- BMP WITH LIPIDon 2021 Anion gap [Moles/Vol] 11.9 mmol/L Normal [facility] Comment on above: Performed By: #### D ATBMP #### [facility] [address] [place] [address] Dr. Yordan Ferguson Calcium [Mass/Vol] 9.0 mg/dL Normal 8.5-10.1 [facility] Comment on above: Performed By: #### D ATBMP #### [facility] [address] [place] [address] Dr. Yordan Ferguson Chloride [Moles/Vol] 104 mmol/L Normal 98-107 [facility] Comment on above: Performed By: #### D ATBMP #### [facility] [address] [place] [address] Dr. Yordan Ferguson Cholesterol [Mass/Vol] 261 mg/dL Critically high <=200 [facility] Comment on above: Performed By: #### D ATBMP #### [facility] [address] [address] [address] Yordan Ferguson Cholesterol in HDL [Mass/Vol] 94 mg/dL Critically high 40-60 [facility] Comment on above: Performed By: #### D ATBMP #### [facility] [address] [address] [address] Yordan Ferguson Cholesterol in LDL [Mass/Vol] 153.2 mg/dL Normal [facility] Comment on above: Performed By: #### D ATBMP #### [facility] [address] [place] [address] Dr. Yordan Ferguson CO2 [Moles/Vol] 28.5 mmol/L Normal 21.0-32.0 [facility] Comment on above: Performed By: #### D ATBMP #### [facility] [address] [place] [address] Dr. Yordan Ferguson Creatinine [Mass/Vol] 0.83 mg/dL Normal 0.55-1.02 [facility] Comment on above: Performed By: #### D ATBMP #### [facility] [address] [place] [address] Dr. Yordan Ferguson EGFR-AF GAMBIAN >60 Normal >=60 [facility] Comment on above: Performed By: #### D ATBMP #### [facility] [address] [place] [address] Dr. Yordan Ferguson EGFR-NON AF GAMBIAN >60 Normal >=60 [facility] Comment on above: Performed By: #### D ATBMP #### [facility] [address] [place] [address] Dr. Yordan Ferguson Glucose [Mass/Vol] 83 mg/dL Normal 74-106 [facility] Comment on above: Performed By: #### D ATBMP #### [facility] [address] [place] [address] Dr. Yordan Ferguson HDL NORMAL > or = 60 mg/dl - LO W CARDIOVASCULAR RISK <40 mg/dl - HIGH CARDIOVASCULAR RISK Normal [facility] Comment on above: Performed By: #### D ATBMP #### [facility] [address] [address] [address] Yordan Ferguson LDL CALC NORMAL SEE BELOW Normal [facility] Comment on above: Result Comment: <100 mg/dl OPTIMAL 100 - 129 mg/dl NEAR OR ABOVE OPTIMAL 130 - 159 mg/dl BORDERLINE HIGH 160 - 189 mg/dl HIGH >190 mg/dl VERY HIGH Performed By: #### D ATBMP #### [facility] [address] [address] [address] Yordan Ferguson Potassium [Moles/Vol] 4.4 mmol/L Normal 3.5-5.1 [facility] Comment on above: Performed By: #### D ATBMP #### [facility] [address] [address] [address] Yordan Ferguson Sodium [Moles/Vol] 140 mmol/L Normal 136-145 [facility] Comment on above: Performed By: #### D ATBMP #### [facility] [address] [address] [address] Yordan Ferguson Triglyceride [Mass/Vol] 69 mg/dL Normal <=150 [facility] Comment on above: Performed By: #### D ATBMP #### [facility] [address] [address] [address] Yordan Ferguson Urea nitrogen [Mass/Vol] 18.0 mg/dL Normal 7.0-18.0 [facility] Comment on above: Performed By: #### D ATBMP #### [facility] [address] [address] [address] Yordan Ferguson Urea nitrogen/Creatinine [Mass ratio] 21.7 mg/mg Normal [facility] Comment on above: Performed By: #### D ATBMP #### [facility] [address] [address] [address] Yordan Ferguson VLDL CALC 13.8 mg/dL Normal [facility] Comment on above: Performed By: #### D ATBMP #### [facility] [address] [address] [address] Yordan Ferguson Vital Signs Date Time Vital Sign Value Performing Clinician Facility 11-26-2024 10:09-0400 Body mass index (BMI) [Ratio] 27.1 kg/m2 Amaris PATHAK Work Phone: [facility] 11-26-2024 10:09-0400 Body weight 78.47 kg Amaris PATHAK Work Phone: [facility] 11-26-2024 10:09-0400 Diastolic blood pressure 86 mm[Hg] Amaris PATHAK Work Phone: [facility] 11-26-2024 10:09-0400 Systolic blood pressure 130 mm[Hg] Amaris PATHAK Work Phone: [facility] 08-07-2024 10:30-0400 Body height 170.18 cm [facility] 08-07-2024 10:30-0400 Body mass index (BMI) [Ratio] 26.6 kg/m2 [facility] 08-07-2024 10:30-0400 Body temperature 99 [degF] [facility] 08-07-2024 10:30-0400 Body weight 77.11 kg [facility] 08-07-2024 10:30-0400 Diastolic blood pressure 66 mm[Hg] [facility] 08-07-2024 10:30-0400 Heart rate 68 /min [facility] 08-07-2024 10:30-0400 SaO2% (BldA) [Mass fraction] 97 % [facility] 08-07-2024 10:30-0400 Systolic blood pressure 116 mm[Hg] [facility] 04-29-2024 11:50-0500 Body height 170.18 cm [facility] 04-29-2024 11:50-0500 Body mass index (BMI) [Ratio] 26.9 kg/m2 [facility] 04-29-2024 11:50-0500 Body weight 78.18 kg [facility] 04-29-2024 11:50-0500 Diastolic blood pressure 74 mm[Hg] [facility] 04-29-2024 11:50-0500 Heart rate 70 /min [facility] 04-29-2024 11:50-0500 Respiratory rate 12 /min [facility] 04-29-2024 11:50-0500 Systolic blood pressure 121 mm[Hg] [facility] 12-24-2023 09:06-0400 Body height 170.18 cm [facility] 12-24-2023 09:06-0400 Body mass index (BMI) [Ratio] 25.7 kg/m2 [facility] 12-24-2023 09:06-0400 Body weight 74.61 kg [facility] 12-24-2023 09:06-0400 Diastolic blood pressure 76 mm[Hg] [facility] 12-24-2023 09:06-0400 Heart rate 65 /min [facility] 12-24-2023 09:06-0400 Respiratory rate 12 /min [facility] 12-24-2023 09:06-0400 Systolic blood pressure 130 mm[Hg] [facility] 12-13-2022 08:30-0400 Body height 170.18 cm Ricky Ball Other [facility] [employer] Other 12-13-2022 08:30-0400 Body mass index (BMI) [Ratio] 25.68 kg/m2 Ricky Ball Other [facility] [employer] Other 12-13-2022 08:30-0400 Body weight 74.39 kg Ricky Ball Other [facility] [employer] Other 12-13-2022 08:30-0400 Diastolic blood pressure 71 mm[Hg] Ricky Ball Other [facility] [employer] Other 12-13-2022 08:30-0400 Respiratory rate 12 /min Ricky Ball Other [facility] [employer] Other 12-13-2022 08:30-0400 Systolic blood pressure 108 mm[Hg] Ricky Ball Other [employer] Other 06-16-2022 13:30-0500 Body height 170.18 cm Ricky Ball Other [employer] Other 06-16-2022 13:30-0500 Body mass index (BMI) [Ratio] 25.84 kg/m2 Ricky Ball Other [employer] Other 06-16-2022 13:30-0500 Body weight 74.84 kg Ricky Ball Other [employer] Other 06-16-2022 13:30-0500 Diastolic blood pressure 70 mm[Hg] Ricky Ball Other [employer] Other 06-16-2022 13:30-0500 Respiratory rate 12 /min Ricky Ball Other [employer] Other 06-16-2022 13:30-0500 Systolic blood pressure 118 mm[Hg] Ricky Ball Other [employer] Other 10-13-2021 10:30-0400 Body height 170.18 cm Mary Maldonadoasmita Other [employer] Other 10-13-2021 10:30-0400 Body mass index (BMI) [Ratio] 25.06 kg/m2 Mary Menard Other [employer] Other 10-13-2021 10:30-0400 Body temperature 97.1 [degF] Mary Menard Other [employer] Other 10-13-2021 10:30-0400 Body weight 72.58 kg Mary Menard Other [employer] Other 10-13-2021 10:30-0400 Diastolic blood pressure 80 mm[Hg] Mary Menard Other [employer] Other 10-13-2021 10:30-0400 SaO2% (BldA) [Mass fraction] 97 % Mary Menard Other [employer] Other 10-13-2021 10:30-0400 Systolic blood pressure 110 mm[Hg] Mary Menard Other [employer] Other Encounters Encounter Date Encounter Type Care Provider Facility Start: 11-26-2024 End: 11-26-2024 Bamboo flowsheet Amaris PATHAK Work Phone: [facility] Start: 11-26-2024 End: 11-26-2024 Bamboo flowsheet Amaris PATHAK Work Phone: [facility] Start: 11-26-2024 End: 11-26-2024 Patient encounter procedure Amaris PATHAK Work Phone: [facility] Start: 11-26-2024 End: 11-26-2024 Periodic preventive med est patient 40-64yrs Amaris PATHAK Work Phone: [facility] Comment on above: Well woman exam with routine gynecological exam; Encounter for screening mammogram for malignant neoplasm of breast; Postmenopausal state Start: 08-07-2024 End: 08-07-[address] [facility] Work Phone: Start: 08-07-2024 End: 08-07-2024 Patient encounter procedure [facility] Work Phone: Start: 04-29-2024 End: 04-29-[address] [facility] Work Phone: Start: 04-29-2024 End: 04-29-2024 Patient encounter procedure [facility] Work Phone: Start: 01-14-2024 End: 01-14-2024 ambulatory ADRIANA WADDELL Not Available Start: 01-14-2024 End: 01-14-2024 Postop follow up visit related to original px Adriana Waddell DO Work Phone: [facility] Comment on above: Osteopenia, unspecif ied location Start: 12-24-2023 End: 12-24-[address] [facility] Work Phone: Start: 12-24-2023 End: 12-24-2023 Encounter for general adult medical examination without abnormal findings [facility] Start: 12-24-2023 End: 12-24-2023 Patient encounter procedure [facility] Work Phone: Start: 12-20-2023 Patient encounter status [facility] Start: 12-20-2023 Non-patient / Non-visit [facility] Work Phone: Start: 11-22-2023 Non-patient / Non-visit [facility] Work Phone: Start: 11-22-2023 End: 11-22-2023 ambulatory AMARIS JUAREZ Not Available Start: 11-20-2023 End: 11-20-2023 ambulatory ILIANA THOMASON Not Available Start: 06-29-2023 End: 06-29-[address] [facility] Work Phone: Start: 06-29-2023 End: 06-29-2023 Patient encounter procedure [facility] Work Phone: Start: 05-29-2023 Chart abstracting Iliana starr MD Work Phone: [facility] Start: 05-23-2023 End: 05-23-2023 Patient encounter procedure Iliana Thomason MD Work Phone: [facility] Comment on above: Basal cell carcinoma of skin of left lower limb, including hip (Primary Dx) Start: 05-23-2023 End: 05-23-2023 ambulatory ILIANA SILVERIOI Not Available Start: 04-17-2023 ([facility]) [facility] Sched[facility] Ricky Parmar [facility] Start: 04-17-2023 End: 04-17-2023 ambulatory Ricky Parmar Other [employer] Other Start: 04-17-2023 End: 04-17-2023 Patient encounter procedure [facility] Work Phone: Start: 04-06-2023 End: 04-06-2023 ambulatory ILIANA SILVERIOI Not Available Start: 12-13-2022 End: 12-13-2022 ambulatory Ricky Parmar Other [facility] Other Start: 12-13-2022 Encounter for genera l adult medical examination without abnormal findings Ricky Parmar [facility] Start: 12-13-2022 Periodic preventive med est patient 40-64yrs Ricky Parmar [facility] Start: 10-10-2022 End: 10-10-2022 ambulatory Ricky Parmar Other [facility] Other Start: 10-10-2022 Telephone encounter Ricky Parmar [facility] Start: 08-09-2022 End: 08-09-2022 ambulatory Ricky Parmar Other [facility] Other Start: 08-09-2022 Office outpatient vi sit 15 minutes Ricky Parmar [facility] Start: 07-14-2022 End: 07-14-2022 ambulatory Ricky Parmar Other [facility] Other Start: 07-14-2022 Telephone encounter Ricky KINGSLEY [facility] Start: 07-13-2022 End: 07-14-[address] RICKY PARMAR Facility: Start: 06-16-2022 End: 06-16-2022 ambulatory Ricky Parmar Other [facility] Other Start: 06-16-2022 Office outpatient vi sit 15 minutes [facility] Start: 06-12-2022 End: 06-13-2022 ambulatory NONE LISTED REQUEST Facility:[facility] Start: 06-09-2022 End: 06-10-2022 ambulatory [...] Facility:[facility] Start: 10-13-2021 End: 10-13-2021 ambulatory Mary Derian Other [facility] Other Start: 10-13-2021 [facility] visit new patient Mary ocampo [facility] Start: 09-14-2021 End: 09-15-[address] VERONIKA HORTON Facility:[facility] Start: 09-09-2021 End: 09-10-2021 ambulatory NONE LISTED REQUEST Facility:[facility] Start: 09-02-2021 End: 09-03-[address] RICKY PARMAR Facility:[facility] Procedures Date Procedure Procedure Detail Performing Clinician Start: 05-23-2023 DESTRUCTION OF LESION Ray Thomason MD Work Phone: Plan of Treatment Date Care Activity Detail Author Start: 12-01-2025 End: 12-01-2025 Patient encounter procedure 12/01/2025 9:00 AM EDT Procedure Visit IRENES Dreek MENDOZA [address] [place] [address] [place] [id number] Amaris Juarez PA [address] [place] [address] [place] [address] RAY[facility] Reed [facility] Start: 12-17-2024 End: 12-17-2024 Patient encounter procedure 12/17/2024 10:05 AM EDT Office Visit [facility] [address] [place] [address] Iliana Thomason MD [address] [place] [address] [facility] [place] [facility] Start: 11-26-2024 End: 01-26-2026 MG Breast - bilateral Screening Bilateral screening mammogram Imaging Routine Encounter for screening mammogram for malignant neoplasm of breast Expected: 11/26/2024, Expires: 01/26/2026 [facility] Work Phone: Comment on above: Expected: 11/26/2024 , Expires: 01/26/2026 Start: 11-26-2024 End: 11-26-2024 Patient encounter procedure [facility] Comment on above: Arrived Start: 11-20-2024 End: 11-20-2024 Patient encounter procedure 11/20/2024 9:50 AM EDT Office Visit [facility] [address] [place] [address] Iliana Thomason MD [address] [place], [place] [id number] [facility] Start: 11-27-2023 End: 11-27-2023 Patient encounter procedure 11/27/2023 9:20 AM EDT Office Visit [facility] [address] [place] [address] Iliana Thomason MD [address] [place] [address] [facility] THIN PREP TIS PAP AN D HR HPV DNA THIN PREP TIS PAP AND HR HPV DNA Pathology and Cytology Routine Well woman exam with routine gynecological exam Ordered: 11/26/2024 [facility] Comment on above: Ordered: 11/26/2024 Payers Date Payer Category Payer Private Health Insurance [id number] 2023 Private Health Insurance [id number] 2008 Private Health Insurance [id number] 1960 Unknown [id number] 2.16.840.1.960202.3.579.2.593 1960 Unknown [id number] 2.16.840.1.781289.3.579.2.593 1962 Unknown [id number] 2.16.840.1.495448.3.579.2.593 1962 Unknown [id number] 2.16.840.1.342302.3.579.2.593 1962 Unknown [id number] 2.16.840.1.621001.3.579.2.593 1962 Unknown [id number] 2.16.840.1.685991.3.579.2.593 1962 Unknown [id number] 2.16.840.1.347123.3.579.2.593 1962 Unknown [id number] 2.16.840.1.470826.3.579.2.593 1962 Unknown [id number] 2.16.840.1.559842.3.579.2.593 1962 Unknown [id number] 2.16.840.1.718709.3.579.2.593 1962 Unknown [id number] 2.16.840.1.894310.3.579.2.125 9 1962 Unknown [id number] 2.16.840.1.074444.3.579.2.125 9 1962 Unknown [id number] 2.16.840.1.988304.3.579.2.125 9 1962 Unknown [id number] 2.16.840.1.075840.3.579.2.125 9 1962 Unknown [id number] 2.16.840.1.321857.3.579.2.125 9 1959 Self-pay 1959 Unknown [id number] Private Health Insurance [facility] [id number] Unknown [id number] 2.16.840.1.616612.3.579.2.593 Unknown [id number] 2.16.840.1.058101.3.579.2.593 Unknown [id number] 2.16.840.1.668983.3.579.2.593 Unknown [id number] 2.16.840.1.229635.3.579.2.593 Social History Date Type Detail Facility Start: 05-23-2023 End: 11-26-2024 Sex Assigned At [facility] [employer] Other Start: 04-06-2023 Tobacco smoking status HIIS Never smoked tobacco [facility] Start: 04-06-2023 End: 05-29-2023 Tobacco use and exposure Smokeless tobacco non-user [facility] Start: 05-23-2023 End: 11-26-2024 History of Social function [facility] Start: 1960 Sex Assigned At Not on file [facility] Start: 05-29-2023 End: 06-29-2023 Tobacco smoking status HIIS Ex-smoker [facility] History of tobacco use Current smoker [facility] History of tobacco use Cigarette Smoker [facility] Start: 1960 Sex Assigned At Female [facility] Start: 04-29-2024 End: 08-07-2024 Sex Female (finding) [facility] Clinical Notes 09-02-2021 to 11-26-2024 LAWSON [place] - 11/26/2024 10:00 AM Aurora Jaime LPN - 01/14/2024 8:00 AM Bello Thomason MD - 05/23/2023 9:20 AM EST Note Date & Type Note Facility 11-26-2024 History of Presen t illness Narrative Reason for Appointment: Patient ID: Fiordaliza Lopez is a 64 y.o. female who presents for Well Women Visit Patient presents today for Annual Exam. MEDICATIONS Current Outpatient Medications Medication Instructions [facility] Aspirin Low Dose 81 MG EC tablet TAKE 1 TABLET BY MOUTH EVERY DAY FOR 30 DAYS levothyroxine (Synthroid, Levoxyl) 112 MCG tablet ALLERGIES No Active Allergies PROBLEMS Active Ambulatory Problems Diagnosis Date Noted Osteopenia 01/14/2024 Resolved Ambulatory Problems Diagnosis Date Noted No Resolved Ambulatory Problems Past Medical History: Diagnosis Date HPV (human papilloma virus) infection HISTORY PAST MEDICAL HISTORY SOCIAL HISTORY Past Medical History: Diagnosis Date HPV (human papilloma virus) infection Social History Tobacco Use Smoking status: Former Types: Cigarettes Smokeless tobacco: Never Vaping Use Vaping status: Never Used Substance Use Topics Alcohol use: Not on file Drug use: Not on file FAMILY HISTORY Family History Problem Relation Name Age of Onset Melanoma Neg Hx SURGICAL HISTORY Past Surgical History: Procedure Laterality Date CERVIX REMOVAL 2009 partial removal REVIEW OF SYSTEMS Review of Systems: Review of Systems Constitutional: Negative. HENT: Negative. Eyes: Negative. Respiratory: Negative. Cardiovascular: Negative. Gastrointestinal: Negative. Genitourinary: Negative. Musculoskeletal: Negative. Skin: Negative. Neurological: Negative. All other systems reviewed and are negative. Hematological: Negative. Endocrine: Negative. Allergic/Immunologic: Negative. OBJECTIVE Objective: Physical Exam Constitutional: Appearance: Normal appearance. She is well-developed. Genitourinary: Vulva normal. Right Adnexa: not tender and no mass present. Left Adnexa: not tender and no mass present. No cervical discharge. Breasts: Breasts are soft. Right: Normal. Left: Normal. HENT: Head: Normocephalic. Nose: Nose normal. Mouth/Throat: Mouth: Mucous membranes are moist. Cardiovascular: Rate and Rhythm: Normal rate and regular rhythm. Pulmonary: Effort: Pulmonary effort is normal. Breath sounds: Normal breath sounds. Abdominal: General: Bowel sounds are normal. There is no distension. Palpations: Abdomen is soft. Tenderness: There is no abdominal tenderness. There is no guarding or rebound. Musculoskeletal: General: No swelling. Normal range of motion. Cervical back: Normal range of motion. Right lower leg: No edema. Left lower leg: No edema. Neurological: General: No focal deficit present. Mental Status: She is alert and oriented to person, place, and time. Skin: General: Skin is warm and dry. Psychiatric: Mood and Affect: Mood normal. Behavior: Behavior normal. Vitals and nursing note reviewed. Exam conducted with a courtesy booth cashier present. Vitals: Estimated body mass index is 27.1 kg/m as calculated from the following: Height as of 11/22/23: 5' 7 . Weight as of this encounter: 173 lb. BP: 130/86 No LMP recorded. Patient is postmenopausal. ASSESSMENT & PLAN ICD-10-CM 1. Well woman exam with routine gynecological exam Z01.419 THIN PREP TIS PAP AND HR HPV DNA 2. Encounter for screening mammogram for malignant neoplasm of breast Z12.31 Bilateral screening mammogram Bilateral screening mammogram 3. Postmenopausal state Z78.0 Annual Exam: Patient presents today for an annual exam. Patient states she is doing well and has no complaints. Pap was obtained without difficulty. Orders Placed This Encounter Procedures Bilateral screening mammogram Follow Up: Patient is to return in one year for annual unless needed otherwise. Documented by Keisha Sood LPN on behalf of: LAWSON [place] documented in this encounter [facility] 01-14-2024 History of Presen t illness Narrative Reason for Appointment: Patient ID: Fiordaliza Lopez is a 63 y.o. female who presents for No chief complaint on file. Patient presents today via telephone call for a telehealth appointment. Patients Phone #: [phone] (mobile) Current Medications: has a current medication list which includes the following prescription(s): [facility] aspirin low dose and levothyroxine. Medical History: Active Ambulatory Problems Diagnosis Date Noted No Active Ambulatory Problems Resolved Ambulatory Problems Diagnosis Date Noted No Resolved Ambulatory Problems Past Medical History: Diagnosis Date HPV (human papilloma virus) infection Family History Problem Relation Name Age of Onset Melanoma Neg Hx Social History Tobacco Use Smoking status: Former Types: Cigarettes Smokeless tobacco: Never Vaping Use Vaping status: Never Used Substance Use Topics Alcohol use: Not on file Drug use: Not on file Past Surgical History: Procedure Laterality Date CERVIX REMOVAL 2009 partial removal Allergies Allergen Reactions Pollen Extract Unknown Vitals: Estimated body mass index is 25.37 kg/m as calculated from the following: Height as of 11/22/23: 5' 7 . Weight as of 11/22/23: 162 lb. BP: No LMP recorded. Patient is postmenopausal. Assessment/Plan 0837 Provider called patient and reviewed DEXA Scan with patient. Patient voiced that Amaris Juarez PA-C had reviewed results with patient in regards to taking Calcium 1200mg and Vitamin D 800iu. Also, advised patient to add multivitamin as well. Informed patient is minimal fracture risk and weight-bearing exercises 3-4 times weekly for 30 mintues would also be beneficial. Offered patient oral weekly replacement with Fosamax. Advised patient that if she gets to -2 then oral Fosamax would definitely be recommended, but will repeat DEXA Scan in 2 years. Today's telehealth visit consisted of spending 5 minutes talking to patient on the phone. Documented by Maricruz Jaime LPN on behalf of: Adriana Waddell DO documented in this encounter [facility] 05-23-2023 History of Presen t illness Narrative [...] left lower limb, including hip Left Thigh [place] papule at biopsy site Destr of lesion Complexity: simple Destruction method: electrodesiccation and curettage Informed consent: discussed and consent obtained Informed consent comment: The risks of the procedure were discussed, including, but not limited to risks of scarring, darker or senior information security engineer pigmentary changes, recurrence, infection, and incomplete removal [...] lidocaine used: 1.0 cc Previous accession number: [id number] ED&C today, see procedure note. Return to clinic prior to next scheduled visit for any signs or symptoms of recurrence, reviewed the signs and symptoms. Next Visit: 6 months FBSE documented in this encounter [facility] 04-17-2023 Evaluation note Encounter Date Diagnosis Assessment Notes Apr, Acute bronchitis due to other specified organisms (ICD-10 - J20.8) Instructed to use Robitussin or Mucinex for cough, saline or Flonase NS for congestion, Tylenol for pain and fever. Apr, Cigarette nicotine dependence in remission (ICD-10 - F17.211) May increase risk for prolonged illness [facility] 08-30-2023 Evaluation note* Encounter Date Diagnosis Assessment Notes Treatment Notes Treatment Clinical Notes Nov, Wellness examination (ICD-10 - Z00.00) Healthy diet and exercise. Reviewed age-appropriate preventive testing recommended. Nov, Atherosclerosis of [place] artery of both lower extremities with intermittent [...] Instructed on monthly SBE and yearly Mammogram [facility] Other 04-26-2023 Evaluation note* Encounter Date Diagnosis Assessment Notes Treatment Notes Treatment Clinical Notes Jul, Acute non-recurrent maxillary sinusitis (ICD-10 - J01.00) Instructed to use Robitussin or Mucinex for cough, saline or Flonase NS for congestion, Tylenol for pain and fever. Jul, Suspected COVID-19 virus infection (ICD-10 - Z20.822) Encouraged to test and notify office if positive results [facility] Other 03-03-2023 Evaluation note* Encounter Date Diagnosis [...] - R04.0) Saline NS daily. Avoid NSAIDs [facility] Other 09-16-2022 NotePROCEDURE: XR ANKLE RT MIN 3 VIEWS COMPARISON: None. HISTORY: Pain of right ankle joint FINDINGS: BONES:No fracture, acute abnormality, or significant arthropathy. SOFT TISSUES:Negative. No visible soft tissue swelling. EFFUSION:None visible. OTHER: Negative. IMPRESSION: No acute abnormality Electronically authenticated by: VERONIKA HORTON Date: 2021-12-30 16:32[facility]07-13-2022 NotePROCEDURE: XR FOOT RT MIN 3 VIEWS COMPARISON: 09/14/2021 HISTORY: Pain in right foot FINDINGS: BONES:No fracture, acute abnormality, or significant arthropathy. SOFT TISSUES:Negative. No visible soft tissue swelling. EFFUSION:None visible. OTHER: Negative. IMPRESSION: No acute abnormality Electronically authenticated by: VERONIKA HORTON Date: 2021-10-26 19:43[facility]06-30-2022 Evaluation note* Encounter Date Diagnosis Assessment Notes Treatment Notes Treatment Clinical Notes Sep, Varicose veins of bilateral lower extremities with other complications (ICD-10 - I83.893) We reviewed her lower extremity ABIs obtained at the [facility] which revealed no hemodynamically significant peripheral arterial [...] agrees with this plan, denies any questions. [facility] Other 06-01-2022 NotePROCEDURE: XR FOOT RT MIN 3 VIEWS COMPARISON: 09/02/2021 HISTORY: Pain in right foot FINDINGS: BONES:No fracture, acute abnormality, or significant arthropathy. SOFT TISSUES:Negative. No visible soft tissue swelling. EFFUSION:None visible. OTHER: Negative. IMPRESSION: No acute disease. Electronically authenticated by: VERONIKA HORTON Date: 2021-09-14 11:59[facility]05-20-2022 NotePROCEDURE: XR FOOT RT MIN 3 VIEWS [...] Electronically authenticated by: DORIE OROZCO Date: 2021-09-02 09:15[facility] noteNo InformationNortLank[facility] [employer] Other Evaluation note* Diagnosis Basal cell carcinoma of skin of left lower limb, including hip- Primary documented in this encounter [facility] HealthcareEvaluation noteNo assessment information availableSt. [facility] Work Phone: Evaluation note* Diagnosis Onset Date Resolution Status [id number] acute Chronic venous insufficiency of lower extremity acute Cigarette nicotine dependence in remission acute Elevated cholesterol acute Hypothyroid acute Screening mammogram for breast cancer acute Wellness examination acute [facility] Work Phone: Evaluation note* Diagnosis Osteopenia, unspecified location documented in this encounter [facility] HealthcareEvaluation note* Diagnosis Onset Date Resolution Status Admit Date Maxillary sinusitis acute August 07, 2024 10:25am [facility] Work Phone: Evaluation note* Diagnosis Well woman exam with routine gynecological exam Routine gynecological examination Encounter for screening mammogram for malignant neoplasm of breast Postmenopausal state Asymptomatic postmenopausal status (age-related) (natural) documented in this encounter [facility] HealthcareHistory general Narrative - Reported* Type Description Date Medical History HPV Medical History PAD Surgical History T&A Surgical History Right Shoulder, bone spur Surgical History Cervix, HPV Hospitalization History See past surgical hx [facility] [employer] Other History general Narrative - Reported* Type Description Date [...] pharyngoesophageal Medical History Other atherosclerosi s of [place] arteries of extremities, bilateral legs Medical History Chronic venous insufficiency Surgical History TONSILLECTOMY AND ADENOIDECTOMY 03/2010 Surgical History Right Shoulder, bone spur Surgical History Cervix, HPV Surgical History EGD WITH BALLOON DILATION, ESOP HAGUS Surgical History BENIGN LEFT BREAST BIOPSY Surgical History LEEP PROCEDURE 09/2008 Hospitalization History See past surgical hx [facility] Other History general Narrative - Reported* Type Description Date [...] pharyngoesophageal Medical History Other atherosclerosi s of [place] arteries of extremities, bilateral legs Medical History Chronic venous insufficiency Surgical History TONSILLECTOMY AND ADENOIDECTOMY 03/2010 Surgical History Right Shoulder, bone spur Surgical History Cervix, HPV Surgical History EGD WITH BALLOON DILATION, ESOP HAGUS Surgical History BENIGN LEFT BREAST BIOPSY Surgical History LEEP PROCEDURE 09/2008 Surgical History Colonoscopy 07/2020 Hospitalization History See past surgical hx [facility] Other Summary Purpose Family History Relationship Condition Age at Onset Recorded Date/T amy father Diabetes mellitus Unknown Unknown Hypertension Unknown Not Specified Family history of mental disorder Unknow n Malignant neoplasm Unknown Relationship Condition Age at Onset Recorded Date/T amy father Diabetes mellitus Unknown Unknown Hypertension Unknown mother Family history of mental disorder Unknown Malignant neoplasm Unknown Advance Directives Advance Directive Response Recorded Date/ Time Advance Directives No May 14, 2023 4:23pm Advance Directive Response Recorded Date/ Time Advance Directives No May 14, 2023 3:23pm Chief Complaint and Reason for Visit Chief Complaint Sinus Infection-Test ing For [id number] sinus infection Chief Complaint Wellness Reason for Visit [id number] Chronic venous insufficiency of lower extremity Cigarette nicotine dependence in remission Elevated cholesterol Hypothyroid Screening mammogram for breast cancer Wellness examination Chief Complaint Admit Date sinus infection April 29, 2024 1 1:42am Chief Complaint Admit Date Sinus Infection August 07, 2024 10: 25am Reason for Visit Admit Date Maxillary sinusitis August 07, 2024 10: 25am Additional Source Comments REASON FOR VISIT (unrecogniz ed section and content) Reason Comments Follow-up Reason Comments Well Women Visit INFORMATION SOURCE (unrecogn ized section and content) DATE CREATED AUTHOR 07/18/2022 [facility] DATE CREATED AUTHOR 'S ORGANIZ ATION 01/15/2024 [facility] Care Teams (unrecognized sec tion and content) Team Status: Active Member Role Status Dates Ricky Parmar DO Primary Care Provider Active Team Status: Inactive Member Role Status Dates Ricky Parmar DO Primary Care Provide r, Attending Provider Active Start: April 29, 2024 End: April 29, 2024 Team Status: Active Member Role Status Dates Ricky Parmar DO Primary Care Provider Active Start: November 22, 2023 Amaris uJarez PA-C Attending Provider Active Start : November 22, 2023 Team Status: Active Member Role Status Dates Ricky Parmar DO Primary Care Provide r, Attending Provider Active Start: December 20, 2023 Team Status: Inactive Member Role Status Edward Parmar DO Primary Care Provide r, Attending Provider Active Start: December 24, 2023 End: December 24, 2023 Team Status: Inactive Member Role Status Dates Ricky Parmar DO Attending Provider Active Sta rt: April 17, 2023 End: April 17, 2023 Team Status: Inactive Member Role Status Edward Parmar DO Primary Care Provide r, Attending Provider Active Start: June 29, 2023 End: June 29, 2023 Sole Buffer Relationship Specialty Start Date End Date Ricky Parmar MD [address] [place] [phone] PCP - General Internal Medicine 11/22/23 Team Status: Inactive Member Role Status Dates Ricky Parmar DO Primary Care Provider Active Start: August 07, 2024 End: August 07, 2024 Samara Estevez APRN [employer]C Attending Provider Act alfred Start: August 07, 2024 End: August 07, 2024 Sole Buffer Relationship Specialty Start Date End Date Ricky Parmar DO [address] [place] [phone] PCP - General Internal Medicine 11/22/23 Sole Buffer Relationship Specialty Start Date End Date Ricky Parmar DO [address] [place] [id number] PCP - General Internal Medicine 11/22/23 Goals (unrecognized section and content) Goals may [...] BE BASED ON THE PRIMARY CLINICAL RECORDS. [employer] provides no warranty or guarantee of the accuracy or completeness of information in this document.
[2024-12-01 11:08] LABS: Age Gdln ACOG Testing Note (.); IGP, Aptima HPV, rfx 16/18,45 Note (.)
== END 2024-11-26 12:21 | disposition home or self-care (01) ==
LOC: LAB 12:20
PROVIDERS: Visit Provider Physician Assistant
DX: Z01.419 Encounter for gynecological examination (general) (routine) without abnormal findings (principal)
CPT/HCPCS: 87624; 88175

== ENCOUNTER 2024-12-22 09:22 | Outpatient (OUT) | payer OTHER, SELFPAY ==
--- NOTE | 2024-12-22 09:25 | MM_ITS ---
Patient Name: NEMO VALERA MR#: [id number] : 1960 Exam Date: 12/22/2024 Ordering Doctor: LAWSON JUAREZ . RADIOLOGY REPORT PROCEDURE: MM TOMOSYNTHESIS SCREENING BI COMPARISON: MM TOMOSYNTHESIS SCREENING BI, 12/21/2023. MG MAMM SCREEN 3D NORMA CAD, 06/09/2022. MG MAMM SCREEN 3D NORMA CAD, 06/03/2021. MG MAMM NORMA SCRN W CAD DIG, 04/24/2013. INDICATIONS: Screening Calculator Name NCI Breast Cancer Risk Assessment Tool 5 Year Breast Cancer Risk 1.80% Lifetime Breast Cancer Risk 8.20% Personal Breast Cancer No Personal Ovarian Cancer No Treatments None Family Cancers None LOCATION: [facility] BREAST COMPOSITION: The breasts are heterogeneously dense, which may obscure small masses. FINDINGS: RIGHT BREAST: No significant suspicious finding. LEFT BREAST: No significant suspicious finding. DIAGNOSTIC CATEGORY 1--NEGATIVE. RECOMMENDATIONS: ROUTINE MAMMOGRAM AND CLINICAL EVALUATION IN 12 MONTHS. Dictated by: Sammy Murray DO on 12/22/2024 at 12:26 Approved by: Sammy Murray DO on 12/22/2024 at 12:35
--- OUTSIDE RECORDS SUMMARY | 2024-12-22 09:32 | XMS_ITS | CCD ---
Author Organization [facility] Care Team Providers Care Air Tester Name Role Phone Mary Menard Unavailable Ricky Parmar Unavailable RONI, DR BOUCHER Consulting Unavailable BALL, DR BOUCHER Primary Care Unavailable BALL, DR OBUCHER Attending Unavailable BALL, DR BOUCHER Admitting Unavailable ZIEBER, DR DORIE Alberto Consulting Unavailable HIGHLANDER, NATA Siegel Consulting Unavailable BALL, DR BOUCHER Primary Care Unavailable HIGHLANDER, NATA Siegel Attending Unavailable HIGHLANDER, NATA Siegel Admitting Unavailable KLIPPER, VERONIKA Lau Unavailable WEST, DR VERONIKA Morataya Consulting Unavailable [...] Unavailable BALL, DR BOUCHER Primary Care Unavailable RONI, DR BOUCHER Attending Unavailable RONI, DR BOUCHER Admitting Unavailable REQUEST, DR CHANG LISTED Attending Unavaila ble REQUEST, DR CHANG LISTED Admitting Unavaila ble RONI, DR BOUCHER Consulting Unavailable RONI, DR BOUCHER Primary Care Unavailable MONMOUTH, DR VEORNIKA Morataya Consulting Unavailable RONI, DR BOUCHER Primary Care Unavailable NATA HENRY Attending Unavailable NATA HENRY Admitting Unavailable ELAINE, NATA Siegel Consulting Unavailable Unavailable Primary Care Provider Unavailangelo Parmar MD, Ricky Bell Primary Care Provider Ricky Parmar DO Primary Care Provider AMARIS JUAREZ Attending Unavailable ILIANA THOMASON Attending Unavailable ADRIANA WADDELL Attending Unavailable Allergies Allergy Classification Reported Allergen(s) Allergy Type Date of Onset Reaction(s) Facility (9 sources) Pollen Drug allergy 4 Unknown [facility] Work Phone: (6 sources) Insect Stings Propensity to adverse reactions 4 Unknown, Unknown Reaction [facility] (4 sources) Pollen Allergy to substance 4 Unknown Reaction [facility] Medications Current Medications Medication Drug Class(es) [...] 12:00am August 20, 2023 6:06pm Start: 05-24-2023 [facility] Aspirin Lo w Dose 81 MG EC tablet 05/24/2023 Active Start: 07-14-2022 take 1 tablet [...] D iscontinued 250 MG PO As Directed 6 June 29, 2023 12:00am December 24, 2023 9:01am Start: 08-09-2022 Azithromycin 2 50 MG as directed Orally daily for 5 days Apr, Active Start: 01-24-2022 Azithromycin 2 50 MG 2 tablet on the first day, then 1 tablet daily for 4 days Orally Once a day for 5 day(s) Jan, Not-Taking/PRN levothyroxine sodium 0.1 mg oral tablet (20 sources) l-Thyroxine Start: 11-24-2024 take 1 tablet by mouth once daily levothyroxine (Synthroid, Levoxyl) 100 MCG tablet Take 100 mcg by mouth Daily 11/24/2024 Active Start: 12-24-2023 End: 05-13-2024 take 1 tablet [...] STOMACH FOR 90 DAYS Start: 04-04-2023 End: 12-17-2024 levothyroxine (Synthroid, Le voxyl) 112 MCG tablet 04/04/2023 12/17/2024 Discontinued take 1 tablet by chanda th once daily in the morning Levothyroxine Sodium [...] foot; Translations: [Contracture, 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 Other and unspecified benign neoplasm (2 sources) Melanocytic nevus of trunk; Translations: [Melanocytic nevi of trunk] 12-17-2024 Episodic Other connective tissue disease (5 sources) [...] pharyngoesophageal] Episodic Other non-epithelial cancer of skin (3 sources) Basal cell carcinoma of lower extremity; Translations: [Basal cell carcinoma of skin of left lower limb, including hip] 05-23-2023 Episodic Other screening for suspected conditions (not mental disorders or infectious disease) (18 sources) Raised TSH level; Translations: [Other specified abnormal findings of blood chemistry] Onset: 2 Episodic Other skin disorders (2 sources) Lentiginosis; Translations: [Other melanin hyperpigmentation] 12-17-2024 Episodic Other skin disorders (2 sources) Seborrheic keratosis; Translations: [Other seborrheic keratosis] 12-17-2024 Episodic Other upper respiratory disease (6 sources) Bleeding from nose; Translations: [Epistaxis] Episodic Other upper respiratory disease (1 source) Epistaxis Episodic Other upper respiratory infections (2 sources) Maxillary sinusitis; Translations: [Chronic maxillary sinusitis] 08-07-2024 Chronic Other upper respiratory infections (2 sources) Acute maxillary sinusitis, unspecified; Translations: [Acute sinusitis] Episodic Peripheral and visceral atherosclerosis (20 sources) Other atherosclerosis of [place] arteries of extremities, bilateral legs; Translations: [Peripheral [...] hemorrhage] Other bone disease and musculoskeletal deformities (14 sources) Osteopenia; Translations: [Other specified disorders of [...] Test Name Value Interpretation Reference Range Facility IGP,APTIMA HPV,AGE GDLNon AGE GDLN ACOG TESTING Note . [facility] Comment on above: TESTS RESULT FLAG UN ITS REF RANGE LAB Clinician Provided Cytology Information Source.............Cervix;Endocervix No. of containers..01 ThinPrep Vial Age Algo ACOG Jazmine... 30-65 01 FLAG LEGEND: L-Low Normal,H-High Normal,LL-Alert Low,HH-Alert High <-Panic Low,>-Panic High,A-Abnormal,AA-Critical Abnormal Performed at: 01 =G [address] [place] [address] Desi Harris MD, HPV APTIMA Negative Negative [facility] Comment on above: This nucleic acid am plification test detects fourteen high- risk HPV types (16,18,31,33,35,39,45,51,52,56,58,59,66,68) without differentiation. Performed at: = - [facility], [place] [id number] Medication Care Manager: Desi Harris MD, Phone: [phone] Performed at: - [facility], [place] [id number] Medication Care Manager: Desi Harris MD, Phone: [phone] IGP, APTIMA HPV, RFX 16/18,[birth year] Note . [facility] Comment on above: TESTS RESULT FLAG UN ITS REF RANGE LAB DIAGNOSIS: 02 NEGATIVE FOR INTRAEPITHELIAL LESION OR MALIGNANCY. CELLULAR CHANGES ASSOCIATED WITH ATROPHY ARE PRESENT. THIS SPECIMEN WAS RESCREENED PART OF OUR LICENSED STAFF MFT PROGRAM. Specimen adequacy: 02 Satisfactory for evaluation. Endocervical component may not be distinguished in cases of atrophy. Performed by: Ashley Cohen, Receiving Team Member (ASC) QC reviewed by: Ashley Higginbotham, Supervisory Receiving Team Member (ASCP) . 02 Note: Note 02 The Pap smear is a screening test designed to aid in the detection of premalignant and malignant conditions of the uterine cervix. It is not a diagnostic procedure and should not be used as the sole means of detecting cervical cancer. Both false-positive and false-negative reports do occur. Test Methodology: Note 02 This liquid based ThinPrep(R) pap test was screened with the use of an image guided system. HPV Genotype Reflex Note 02 Criteria not met, HPV Genotype not performed. FLAG LEGEND: L-Low Normal,H-High Normal,LL-Alert Low,HH-Alert High <-Panic Low,>-Panic High,A-Abnormal,AA-Critical Abnormal Performed at: 02 [facility] [address] [place] [address] Desi Harris MD, BRUSH-SPATULA CERVIX [facility] Bas[facility] Auto (Bld) [#/Vol] on 12-20-2023 Basophils (Bld) [#/Vol] 0.1 10 3/uL 0.0-0.1 [facility] Basophils/100 WBC Auto (Bld) on 12-20-2023 Basophils/100 WBC (Bld) 1.0 % 0.2-2.0 [facility] Cholesterol in LDL Calc [Mas s/Vol]on 12-20-2023 Cholesterol in LDL [Mass/Vol] 149.0 mg/dL [facility] Comment on above: <100 mg/dl [id number] 0-129 mg/dl NEAR OR ABOVE [id number] mg/dl BORDERLINE [id number] mg/dl HIGH>190 mg/dl VERY HIGH Cholesterol in VLDL Calc [Ma ss/Vol]on 12-20-2023 Cholesterol in VLDL [Mass/Vol] 22.6 mg/dL [facility] Eosinophils/100 WBC Auto (Bl d)on 12-20-2023 Eosinophils/100 WBC (Bld) 3.0 % 0.9-7.0 [facility] Erythrocyte distribution wid th Auto (RBC) [Ratio]on 12-20-2023 Erythrocyte distribution width (RBC) [Ratio] 13.3 % 11.0-15.0 [facility] Estimated glomerular filtrat ion rate (GFR) non- Americanon 12-20-2023 GFR/1.73 sq M.predicted among non-blacks MDRD (S/P/Bld) [Vol rate/Area] mL/min/{1.73_m2} >=60 [facility] Globulin Calc (S) [Mass/Vol] on 12-20-2023 Globulin (S) [Mass/Vol] 3.8 g/dL [facility] Hematocrit Auto (Bld) [Volum e fraction]on 12-20-2023 Hematocrit (Bld) [Volume fraction] 39.5 % 36.0-48.0 [facility] Hemoglobin [Mass/volume] in Bloodon 12-20-2023 Hemoglobin (Bld) [Mass/Vol] 13.2 g/dL 12.0-16.0 [facility] Laboratory - Chemistry and C hemistry - challengeon 12-20-2023 Albumin [Mass/Vol] 3.7 g/dL 3.4-5.0 [facility] ALP [Catalytic activity/Vol] 92 U/L 46-116 [facility] ALT [Catalytic activity/Vol] 32 U/L 14-59 [facility] AST [Catalytic activity/Vol] 22 U/L 15-37 [facility] Bilirubin [Mass/Vol] 0.3 mg/dL 0.2-1.0 [facility] Calcium [Mass/Vol] 9.3 mg/dL 8.5-10.1 [facility] Chloride [Moles/Vol] 102 mmol/L 98-107 [facility] Cholesterol [Mass/Vol] 261 mg/dL High <=200 [facility] Cholesterol in HDL [Mass/Vol] 90 mg/dL High 40-60 [facility] Comment on above: > or =60 mg/dl - LOW CARDIOVASCULAR RISK<40 mg/dl - HIGH CARDIOVASCULAR RISK CO2 [Moles/Vol] 29.3 mmol/L 21.0-32.0 [facility] Creatinine [Mass/Vol] 0.70 mg/dL 0.55-1.02 [facility] GFR/1.73 sq M.predicted MDRD (S/P/Bld) [Vol rate/Area] mL/min/{1.73_m2} >=60 [facility] Glucose [Mass/Vol] 73 mg/dL Low 74-106 [facility] Potassium [Moles/Vol] 4.0 mmol/L 3.5-5.1 [facility] Protein [Mass/Vol] 7.5 g/dL 6.4-8.2 [facility] Sodium [Moles/Vol] 137 mmol/L 136-145 [facility] Triglyceride [Mass/Vol] 113 mg/dL <=150 [facility] TSH Qn 0.020 m[IU]/L Low 0.358-3.740 [facility] Urea nitrogen [Mass/Vol] 14.0 mg/dL 7.0-18.0 [facility] Urea nitrogen/Creatinine [Mass ratio] 20.0 mg/mg [facility] Laboratory - Hematology and Cell countson 12-20-2023 Immature granulocytes/100 WBC (Bld) 0.1 % 0.0-0.5 [facility] Leukocytes [#/volume] correc trevor for nucleated erythrocytes in Blood by Automated counon 12-20-2023 WBC corrected for nucl RBC Auto (Bld) [#/Vol] 6.9 10 3/uL 4.0-11.0 [facility] Lymphocytes Auto (Bld) [#/Vo l]on 12-20-2023 Lymphocytes (Bld) [#/Vol] 2.1 10 3/uL 1.2-3.8 [facility] Lymphocytes/100 WBC Auto (Bl d)on 12-20-2023 Lymphocytes/100 WBC (Bld) 30.7 % 20.5-60.0 [facility] MCH Auto (RBC) [Entitic mass ]on 12-20-2023 MCH (RBC) [Entitic mass] 30.2 pg 26.7-34.0 [facility] MCHC Auto (RBC) [Mass/Vol]on 12-20-2023 MCHC (RBC) [Mass/Vol] 33.4 g/dL 29.9-35.2 [facility] MCV Auto (RBC) [Entitic vol] on 12-20-2023 MCV (RBC) [Entitic vol] 90.4 fL 81.0-99.0 [facility] Monocytes Auto (Bld) [#/Vol] on 12-20-2023 Monocytes (Bld) [#/Vol] 0.6 10 3/uL 0.3-0.8 [facility] Monocytes/100 WBC Auto (Bld) on 12-20-2023 Monocytes/100 WBC (Bld) 8.4 % 1.7-12.0 [facility] Neutrophils Auto (Bld) [#/Vo l]on 12-20-2023 Neutrophils (Bld) [#/Vol] 3.9 10 3/uL 1.4-6.5 [facility] Neutrophils/100 WBC Auto (Bl d)on 12-20-2023 Neutrophils/100 WBC (Bld) 56.8 % 43.0-75.0 [facility] No Panel Informationon 12-19 Eosinophils # (Auto) 0.2 10 3/uL 0.0-0.7 [facility] Immature Granulocyte # (Auto) 0.01 10 3/uL 0.00-0.03 [facility] Platelet mean volume Auto (B ld) [Entitic vol]on 12-20-2023 Platelet mean volume (Bld) [Entitic vol] 9.0 fL Low 9.5-13.5 [facility] Platelets Auto (Bld) [#/Vol] on 12-20-2023 Platelets (Bld) [#/Vol] 317 10 3/uL 150-450 [facility] RBC Auto (Bld) [#/Vol]on RBC (Bld) [#/Vol] 4.37 10 6/uL 4.20-5.40 [facility] Serum or plasma albumin/glob ulin mass ratioon 12-20-2023 Albumin/Globulin [Mass ratio] 1.0 {ratio} [facility] Serum or plasma anion gap de terminationon 12-20-2023 Anion gap [Moles/Vol] 9.7 mmol/L [facility] Serum or plasma total choles terol/high density lipoprotein (HDL) cholesterol mass jose 12-20-2023 Cholesterol.total/Ch olesterol in HDL [Mass ratio] 2.9 {ratio} [facility] Comment on above: 3.3 - 4.4 LOW RISK4. 4 - 7.1 AVERAGE RISK7.1 - 11.0 MODERATE RISK>11.0 HIGH RISK Human papilloma virus 16+18+ 31+33+35+39+45+51+52+56+58+59+66+68 DNA [Presence] in Josefina 08-08-2024 HPV 16+18+31+33+35+39+45 +51+52+56+58+59+66+6 8 DNA Probe+sig amp Ql (Cvx) Negative Negative [facility] Comment on above: This nucleic acid am plification test detects fourteen high- risk HPV types (16,18,31,33,35,39,45,51,52,56,58,59,66,68)without differentiation.Performed at: =G - [facility] [address] [id number] Director: Desi Harris MD, Phone: [phone] at: - [facility] [address] [id number] Director: Desi Harris MD, Phone: [phone] No Panel Informationon 11-21 HPV High Risk Other Comment Note . [facility] Comment on above: TESTS RESULT FLAG UN ITS REF RANGE LAB DI AGNOSIS: 02 NEGATIVE FOR INTRAEPITHELIAL LESION OR MALIGNANCY. CELLULAR CHANGES ASSOCIATED WITH ATROPHY ARE PRESENT.Specimen adequacy: 02 Satisfactory for evaluation. Endocervical component may not be distinguished in cases of atrophy.Performed by: Ashley Flores, Crate Opener (ASCP). 02Note: Note 02 The Pap smear is [...] Low,>-Panic High,A-Abnormal,AA-Critical Abnormal ---Performed at:02 WB [facility] [address] [facility] [place] [address] Desi Harris MD, Reference Lab Test Patient Age Note . [facility] Comment on above: TESTS RESULT FLAG UN ITS REF RANGE LAB Clinician Provided Cytology Information Source.............Cervix;Endocervix No. of containers..01 ThinPrep VialAge Algo ACOG Jazmine... 01 FLAG LEGEND: L-Low Normal,H-High Normal,LL-Alert Low,HH-Alert High <-Panic Low,>-Panic High,A-Abnormal,AA-Critical Abnormal ---Performed at:01 =G [facility] [place] [address] [facility] [place] [address] Desi Harris MD, [facility] 05-23-2023 Complexity: simple Destruction method: electrodesiccation and curettage Informed consent: discussed and consent obtained Informed consent comment: The risks of the procedure were discussed, including, but not limited to risks of scarring, darker or manager house pigmentary changes, recurrence, infection, and incomplete removal [...] lidocaine used: 1.0 cc Previous accession number: [id number] [facility] - TSHon 07-13-2022 TSH 0.013 uIU/mL Critically low 0.358-3.740 [facility] Comment on above: Performed By: #### D ATTSH #### [facility] [address] [place] [address] Dr. Yordan Ferguson TSH RANGE SEE BELOW Normal [facility] Comment on above: Result Comment: <0.3 4 UIU/ml HYPERTHYROID 0.34-5.60 UIU/ml EUTHYROID >5.60 UIU/ml HYPOTHYROID Performed By: #### D ATTSH #### [facility] [address] [place] [address] Dr. Yordan Ferguson [place] - TSHon 06-12-2022 TSH 0.020 uIU/mL Critically low 0.358-3.740 [facility] Comment on above: Performed By: #### D ATTSH #### [facility] [address] [address] [address] Yordan Ferguson TSH RANGE SEE BELOW Normal [facility] Comment on above: Result Comment: <0.3 4 UIU/ml HYPERTHYROID 0.34-5.60 UIU/ml EUTHYROID >5.60 UIU/ml HYPOTHYROID Performed By: #### D ATTSH #### [facility] [address] [address] [address] Yordan Ferguson MG MAMM SCREEN 3D NORMA CADon 06-09-2022 MG MAMM SCREEN 3D NORMA CAD Patient: FIORDALIZA LOPEZ Exam Date: 06/09/2022 : 1960 Gender:F Ordering : DR RICKY PARMAR D.O. Admission #: [id number] Family : Order #: [id number] CLICK HERE TO VIEW EXAM RADIOLOGY REPORT [...] Treatments None Family Cancers None LOCATION: [facility] BREAST COMPOSITION: Heterogeneously dense,which may obscure small [...] MD on 06/09/2022 at 10:28 Normal [facility] TSHon 03-20-2022 TSH 0.072 uIU/mL Critically low 0.358-3.740 [facility] Comment on above: Performed By: #### T SH #### [facility] [address] [place], [place] [address] Dr. Yordan Ferguson TSHon 02-01-2022 TSH 42.462 uIU/mL Critically high 0.358-3.740 [facility] Comment on above: Performed By: #### T SH #### [facility] [address] [place], [place] [address] Dr. Yordan Ferguson MRI ANKLE RT WO [...] VERONIKA BANERJEE Date: 2022-01-07 22:45 Normal [facility] T3, TOTAL (TRIIODOTHYRONINE) on 12-15-2021 T3, TOTAL 75 ng/dL Normal 71-180 [facility] Comment on above: Performed By: #### T 3TOTAL #### [facility] [address] [place], [place] [address] Dr. Yordan Ferguson THYROID PEROXIDASE ABon 09-0 Thyroid Peroxidase (TPO) Ab 244 IU/mL Critically high 0-34 [facility] Comment on above: Performed By: #### T POAB #### [facility] [address] [place] [address] Dr. Yordan Ferguson US THYROIDon 12-14-2021 US [...] by: DORIE OROZCO Date: 2021-12-14 07:04 Normal [facility] FREE T4on 12-13-2021 Free T4 [Mass/Vol] 0.43 ng/dL Critically low 0.76-1.46 [facility] Comment on above: Performed By: #### D ATTSH #### [facility] [address] [place] [address] Dr. Yordan Ferguson TSHon 12-13-2021 TSH 65.911 uIU/mL Critically high 0.358-3.740 [facility] Comment on above: Performed By: #### T SH #### [facility] [address] [place] [address] Dr. Yordan Ferguson [facility] CBC AUTO DIFFon 12-01-2021 BASO # 0.1 103/ul Normal 0.0-0.1 [facility] Comment on above: Performed By: #### D ATTSH #### [facility] [address] [place] [address] Dr. Yordan Ferguson Basophils/100 WBC (Bld) 1.1 % Normal 0.2-2.0 [facility] Comment on above: Performed By: #### D ATTSH #### [facility] [address] [address] [address] Yordan Ferguson EO # 0.4 103/ul Normal 0.0-0.7 [facility] Comment on above: Performed By: #### D ATTSH #### [facility] [address] [place] [address] Dr. Yordan Ferguson Eosinophils/100 WBC (Bld) 6.5 % Normal 0.9-7.0 [facility] Comment on above: Performed By: #### D ATTSH #### [facility] [address] [place] [address] Dr. Yordan Ferguson Erythrocyte distribution width (RBC) [Ratio] 13.6 % Normal 11.0-15.0 [facility] Comment on above: Performed By: #### D ATTSH #### [facility] [address] [place] [address] Dr. Yordan Ferguson Hematocrit (Bld) [Volume fraction] 40.6 % Normal 36.0-48.0 [facility] Comment on above: Performed By: #### D ATTSH #### [facility] [address] [place] [address] Dr. Yordan Ferguson Hemoglobin (Bld) [Mass/Vol] 13.4 g/dL Normal 12.0-16.0 [facility] Comment on above: Performed By: #### D ATTSH #### [facility] [address] [place] [address] Dr. Yordan Ferguson IG # 0.01 10e3/ul Normal 0.00-0.03 [facility] Comment on above: Performed By: #### D ATTSH #### [facility] [address] [place] [address] Dr. Yordan Ferguson IG % 0.2 % Normal 0.0-0.5 [facility] Comment on above: Performed By: #### D ATTSH #### [facility] [address] [place] [address] Dr. Yordan Ferguson LYMPH # 2.1 103/ul Normal 1.2-3.8 [facility] Comment on above: Performed By: #### D ATTSH #### [facility] [address] [place] [address] Dr. Yordan Ferguson Lymphocytes/100 WBC (Bld) 31.7 % Normal 20.5-60.0 [facility] Comment on above: Performed By: #### D ATTSH #### [facility] [address] [place] [address] Dr. Yordan Ferguson MCH (RBC) [Entitic mass] 31.6 pg Normal 26.7-34.0 [facility] Comment on above: Performed By: #### D ATTSH #### [facility] [address] [place] [address] Dr. Yordan Ferguson MCHC (RBC) [Mass/Vol] 33.0 g/dL Normal 29.9-35.2 [facility] Comment on above: Performed By: #### D ATTSH #### [facility] [address] [place] [address] Dr. Yordan Ferguson MCV (RBC) [Entitic vol] 95.8 fL Normal 81.0-99.0 [facility] Comment on above: Performed By: #### D ATTSH #### [facility] [address] [place] [address] Dr. Yordan Ferguson MONO # 0.6 103/ul Normal 0.3-0.8 [facility] Comment on above: Performed By: #### D ATTSH #### [facility] [address] [place] [address] Dr. Yordan Ferguson Monocytes/100 WBC (Bld) 8.6 % Normal 1.7-12.0 [facility] Comment on above: Performed By: #### D ATTSH #### [facility] [address] [place] [address] Dr. Yordan Ferguson NEUT # 3.4 103/ul Normal 1.4-6.5 [facility] Comment on above: Performed By: #### D ATTSH #### [facility] [address] [place] [address] Dr. Yordan Ferguson Neutrophils/100 WBC (Bld) 51.9 % Normal 43.0-75.0 [facility] Comment on above: Performed By: #### D ATTSH #### [facility] [address] [address] [address] Yordan Ferguson Platelet mean volume (Bld) [Entitic vol] 9.0 fL Critically low 9.5-13.5 [facility] Comment on above: Performed By: #### D ATTSH #### [facility] [address] [address] [address] Yordan Ferguson PLT 307 103/ul Normal 150-450 [facility] Comment on above: Performed By: #### D ATTSH #### [facility] [address] [address] [address] Yordan Ferguson RBC 4.24 106/ul Normal 4.20-5.40 [facility] Comment on above: Performed By: #### D ATTSH #### [facility] [address] [place] [address] Dr. Yordan Ferguson WBC 6.5 103/ul Normal 4.0-11.0 [facility] Comment on above: Performed By: #### D ATTSH #### [facility] [address] [place] [address] Dr. Yordan Ferguson [facility] PROFILEon 022 Albumin [Mass/Vol] 4.4 g/dL Normal 3.4-5.0 [facility] Comment on above: Performed By: #### H FPF #### [facility] [address] [place] [address] Dr. Yordan Ferguson Albumin/Globulin [Mass ratio] 1.2 {ratio} Normal [facility] Comment on above: Performed By: #### H FPF #### [facility] [address] [place] [address] Dr. Yordan Ferguson ALP [Catalytic activity/Vol] 75 U/L Normal 46-116 [facility] Comment on above: Performed By: #### H FPF #### [facility] [address] [place] [address] Dr. Yordan Ferguson ALT [Catalytic activity/Vol] 33 U/L Normal 14-59 [facility] Comment on above: Performed By: #### H FPF #### [facility] [address] [address] [address] Yordan Ferguson AST [Catalytic activity/Vol] 29 U/L Normal 15-37 [facility] Comment on above: Performed By: #### H FPF #### [facility] [address] [address] [address] Yordan Ferguson Bilirubin [Mass/Vol] 0.3 mg/dL Normal 0.2-1.0 [facility] Comment on above: Performed By: #### H FPF #### [facility] [address] [place] [address] Dr. Yordan Ferguson Calcium [Mass/Vol] 9.3 mg/dL Normal 8.5-10.1 [facility] Comment on above: Performed By: #### H FPF #### [facility] [address] [place] [address] Dr. Yordan Ferguson Chloride [Moles/Vol] 103 mmol/L Normal 98-107 [facility] Comment on above: Performed By: #### H FPF #### [facility] [address] [place] [address] Dr. Yordan Ferguson CHOL-HDL RATIO NORM SEE BELOW Normal [facility] Comment on above: Result Comment: 3.3 - 4.4 LOW RISK 4.4 - 7.1 AVERAGE RISK 7.1 - 11.0 MODERATE RISK >11.0 HIGH RISK Performed By: #### H FPF #### [facility] [address] [place] [address] Dr. Yordan Ferguson Cholesterol [Mass/Vol] 214 mg/dL Critically high <=200 [facility] Comment on above: Performed By: #### H FPF #### [facility] [address] [address] [address] Yordan Ferguson Cholesterol in HDL [Mass/Vol] 87 mg/dL Critically high 40-60 [facility] Comment on above: Performed By: #### H FPF #### [facility] [address] [address] [address] Yordan Ferguson Cholesterol in LDL [Mass/Vol] 111.2 mg/dL Normal [facility] Comment on above: Performed By: #### H FPF #### [facility] [address] [address] [address] Yordan Ferguson Cholesterol.total/Ch olesterol in HDL [Mass ratio] 2.5 {ratio} Normal [facility] Comment on above: Performed By: #### H FPF #### [facility] [address] [address] [address] Yordan Ferguson CO2 [Moles/Vol] 28.0 mmol/L Normal 21.0-32.0 [facility] Comment on above: Performed By: #### H FPF #### [facility] [address] [address] [address] Yordan Ferguson Creatinine [Mass/Vol] 0.83 mg/dL Normal 0.55-1.02 [facility] Comment on above: Performed By: #### H FPF #### [facility] [address] [address] [address] Yordan Ferguson Globulin (S) [Mass/Vol] 3.6 g/dL Normal [facility] Comment on above: Performed By: #### H FPF #### [facility] [address] [address] [address] Yordan Ferguson Glucose [Mass/Vol] 86 mg/dL Normal 74-106 [facility] Comment on above: Performed By: #### H FPF #### [facility] [address] [address] [address] Yordan Ferguson HDL NORMAL > or = 60 mg/dl - LO W CARDIOVASCULAR RISK <40 mg/dl - HIGH CARDIOVASCULAR RISK Normal [facility] Comment on above: Performed By: #### H FPF #### [facility] [address] [address] [address] Yordan Ferguson LDL CALC NORMAL SEE BELOW Normal [facility] Comment on above: Result Comment: <100 mg/dl OPTIMAL 100 - 129 mg/dl NEAR OR ABOVE OPTIMAL 130 - 159 mg/dl BORDERLINE HIGH 160 - 189 mg/dl HIGH >190 mg/dl VERY HIGH Performed By: #### H FPF #### [facility] [address] [address] [address] Yordan Ferguson Potassium [Moles/Vol] 4.4 mmol/L Normal 3.5-5.1 [facility] Comment on above: Performed By: #### H FPF #### [facility] [address] [address] [address] Yordan Ferguson Protein [Mass/Vol] 8.0 g/dL Normal 6.4-8.2 [facility] Comment on above: Performed By: #### H FPF #### [facility] [address] [address] [address] Yordan Ferguson Sodium [Moles/Vol] 140 mmol/L Normal 136-145 [facility] Comment on above: Performed By: #### H FPF #### [facility] [address] [place] [address] Dr. Yordan Ferguson Triglyceride [Mass/Vol] 79 mg/dL Normal <=150 [facility] Comment on above: Performed By: #### H FPF #### [facility] [address] [address] [address] Yordan Ferguson TSH 98.063 uIU/mL Critically high 0.358-3.740 [facility] Comment on above: Result Comment: RERA N SPECIMEN PER PHYSICIAN REQUEST 12/06/21 DUPLICATED WELL @ 102.38 uIU/ml Performed By: #### H FPF #### [facility] [address] [place] [address] Dr. Yordan Ferguson Urea nitrogen [Mass/Vol] 17.0 mg/dL Normal 7.0-18.0 [facility] Comment on above: Performed By: #### H FPF #### [facility] [address] [address] [address] Yordan Ferguson Urea nitrogen/Creatinine [Mass ratio] 20.5 mg/mg Normal [facility] Comment on above: Performed By: #### H FPF #### [facility] [address] [address] [address] Yordan Ferguson VLDL CALC 15.8 mg/dL Normal [facility] Comment on above: Performed By: #### H FPF #### [facility] [address] [place] [address] Dr. Yordan Ferguson CBC AUTO DIFFon 09-09-2021 BASO # 0.1 103/ul Normal 0.0-0.1 [facility] Comment on above: Performed By: #### D ATCBC #### [facility] [address] [place] [address] Dr. Yordan Ferguson Basophils/100 WBC (Bld) 1.4 % Normal 0.2-2.0 [facility] Comment on above: Performed By: #### D ATCBC #### [facility] [address] [place] [address] Dr. Yordan Ferguson EO # 0.4 103/ul Normal 0.0-0.7 [facility] Comment on above: Performed By: #### D ATCBC #### [facility] [address] [place] [address] Dr. Yordan Ferguson Eosinophils/100 WBC (Bld) 6.6 % Normal 0.9-7.0 [facility] Comment on above: Performed By: #### D ATCBC #### [facility] [address] [place] [address] Dr. Yordan Ferguson Erythrocyte distribution width (RBC) [Ratio] 14.6 % Normal 11.0-15.0 [facility] Comment on above: Performed By: #### D ATCBC #### [facility] [address] [place] [address] Dr. Yordan Ferguson Hematocrit (Bld) [Volume fraction] 39.5 % Normal 36.0-48.0 [facility] Comment on above: Performed By: #### D ATCBC #### [facility] [address] [place] [address] Dr. Yordan Ferguson Hemoglobin (Bld) [Mass/Vol] 12.9 g/dL Normal 12.0-16.0 [facility] Comment on above: Performed By: #### D ATCBC #### [facility] [address] [place] [address] Dr. Yordan Ferguson IG # 0.01 10e3/ul Normal 0.00-0.03 [facility] Comment on above: Performed By: #### D ATCBC #### [facility] [address] [address] [address] Yordan Ferguson IG % 0.2 % Normal 0.0-0.5 [facility] Comment on above: Performed By: #### D ATCBC #### [facility] [address] [address] [address] Yordan Ferguson LYMPH # 1.9 103/ul Normal 1.2-3.8 [facility] Comment on above: Performed By: #### D ATCBC #### [facility] [address] [place] [address] Dr. Yordan Ferguson Lymphocytes/100 WBC (Bld) 32.6 % Normal 20.5-60.0 [facility] Comment on above: Performed By: #### D ATCBC #### [facility] [address] [place] [address] Dr. Yordan Ferguson MCH (RBC) [Entitic mass] 30.9 pg Normal 26.7-34.0 [facility] Comment on above: Performed By: #### D ATCBC #### [facility] [address] [place] [address] Dr. Yordan Ferguson MCHC (RBC) [Mass/Vol] 32.7 g/dL Normal 29.9-35.2 [facility] Comment on above: Performed By: #### D ATCBC #### [facility] [address] [place] [address] Dr. Yordan Ferguson MCV (RBC) [Entitic vol] 94.5 fL Normal 81.0-99.0 [facility] Comment on above: Performed By: #### D ATCBC #### [facility] [address] [place] [address] Dr. Yordan Ferguson MONO # 0.5 103/ul Normal 0.3-0.8 [facility] Comment on above: Performed By: #### D ATCBC #### [facility] [address] [place] [address] Dr. Yordan Ferguson Monocytes/100 WBC (Bld) 7.8 % Normal 1.7-12.0 [facility] Comment on above: Performed By: #### D ATCBC #### [facility] [address] [address] [address] Yordan Ferguson NEUT # 3.0 103/ul Normal 1.4-6.5 [facility] Comment on above: Performed By: #### D ATCBC #### [facility] [address] [address] [address] Yordan Ferguson Neutrophils/100 WBC (Bld) 51.4 % Normal 43.0-75.0 [facility] Comment on above: Performed By: #### D ATCBC #### [facility] [address] [address] [address] Yordan Ferguson Platelet mean volume (Bld) [Entitic vol] 8.5 fL Critically low 9.5-13.5 [facility] Comment on above: Performed By: #### D ATCBC #### [facility] [address] [address] [address] Yordan Ferguson PLT 297 103/ul Normal 150-450 [facility] Comment on above: Performed By: #### D ATCBC #### [facility] [address] [address] [address] Yordan Ferguson RBC 4.18 106/ul Critically low 4.20-5.40 [facility] Comment on above: Performed By: #### D ATCBC #### [facility] [address] [address] [address] Yordan Ferguson WBC 5.8 103/ul Normal 4.0-11.0 [facility] Comment on above: Performed By: #### D ATCBC #### [facility] [address] [address] [address] Yordan Ferguson HOLLAND- BMP WITH LIPIDon 2021 Anion gap [Moles/Vol] 11.9 mmol/L Normal [facility] Comment on above: Performed By: #### D ATBMP #### [facility] [address] [address] [address] Yordan Ferguson Calcium [Mass/Vol] 9.0 mg/dL Normal 8.5-10.1 [facility] Comment on above: Performed By: #### D ATBMP #### [facility] [address] [address] [address] Yordan Ferguson Chloride [Moles/Vol] 104 mmol/L Normal 98-107 [facility] Comment on above: Performed By: #### D ATBMP #### [facility] [address] [address] [address] Yordan Ferguson Cholesterol [Mass/Vol] 261 mg/dL Critically high <=200 [facility] Comment on above: Performed By: #### D ATBMP #### [facility] [address] [address] [address] Yordan Ferguson Cholesterol in HDL [Mass/Vol] 94 mg/dL Critically high 40-60 [facility] Comment on above: Performed By: #### D ATBMP #### [facility] [address] [address] [address] Yordan Ferguson Cholesterol in LDL [Mass/Vol] 153.2 mg/dL Normal [facility] Comment on above: Performed By: #### D ATBMP #### [facility] [address] [address] [address] Yordan Ferguson CO2 [Moles/Vol] 28.5 mmol/L Normal 21.0-32.0 [facility] Comment on above: Performed By: #### D ATBMP #### [facility] [address] [address] [address] Yordan Ferguson Creatinine [Mass/Vol] 0.83 mg/dL Normal 0.55-1.02 [facility] Comment on above: Performed By: #### D ATBMP #### [facility] [address] [address] [address] Yordan Ferguson EGFR-AF BENINESE >60 Normal >=[address] [facility] Comment on above: Performed By: #### D ATBMP #### [facility] [address] [address] [address] Yordan Ferguson EGFR-NON AF BENINESE >60 Normal >=60 [facility] Comment on above: Performed By: #### D ATBMP #### [facility] [address] [address] [address] Yordan Ferguson Glucose [Mass/Vol] 83 mg/dL Normal 74-106 [facility] Comment on above: Performed By: #### D ATBMP #### [facility] [address] [address] [address] Yordan Ferguson HDL NORMAL > or = 60 mg/dl - LO W CARDIOVASCULAR RISK <40 mg/dl - HIGH CARDIOVASCULAR RISK Normal [facility] Comment on above: Performed By: #### D ATBMP #### [facility] [address] [address] [address] Yordan Ferguson LDL CALC NORMAL SEE BELOW Normal [facility] Comment on above: Result Comment: <100 mg/dl OPTIMAL 100 - 129 mg/dl NEAR OR ABOVE OPTIMAL 130 - 159 mg/dl BORDERLINE HIGH 160 - 189 mg/dl HIGH >190 mg/dl VERY HIGH Performed By: #### D ATBMP #### [facility] [address] [address] [address] Yordan Ferguson Potassium [Moles/Vol] 4.4 mmol/L Normal 3.5-5.1 [facility] Comment on above: Performed By: #### D ATBMP #### [facility] [address] [address] [address] Yordan Ferguson Sodium [Moles/Vol] 140 mmol/L Normal 136-145 [facility] Comment on above: Performed By: #### D ATBMP #### [facility] [address] [address] [address] Yordan Ferguson Triglyceride [Mass/Vol] 69 mg/dL Normal <=150 [facility] Comment on above: Performed By: #### D ATBMP #### [facility] [address] [address] [address] Yordan Ferguson Urea nitrogen [Mass/Vol] 18.0 mg/dL Normal 7.0-18.0 [facility] Comment on above: Performed By: #### D ATBMP #### [facility] [address] [address] [address] Yordan Ferguson Urea nitrogen/Creatinine [Mass ratio] 21.7 mg/mg Normal [facility] Comment on above: Performed By: #### D ATBMP #### [facility] [address] [address] [address] Yordan Ferguson VLDL CALC 13.8 mg/dL Normal [facility] Comment on above: Performed By: #### D ATBMP #### [facility] [address] [address] [address] Yordan Ferguson Vital Signs Date Time Vital Sign Value Performing Clinician Facility 11-26-2024 [id number] Body mass index (BMI) [Ratio] 27.1 kg/m2 Amaris PATHAK Work Phone: [facility] 11-26-2024 10:09-040 Body weight 78.47 kg Amaris PATHAK Work Phone: [facility] 11-26-2024 10:09-0400 Diastolic blood pressure 86 mm[Hg] Amaris PATHAK Work Phone: [facility] 11-26-2024 10:09-0400 Systolic blood pressure 130 mm[Hg] Amaris PATHAK Work Phone: [facility] 08-07-2024 10:30-0400 Body height 170.18 cm [facility] 08-07-2024 10:30-0400 Body mass index (BMI) [Ratio] 26.6 kg/m2 [facility] 08-07-2024 10:30-0400 Body temperature 99 [degF] [facility] 08-07-2024 10:30-0400 Body weight 77.11 kg [facility] 08-07-2024 10:30-0400 Diastolic blood pressure 66 mm[Hg] [facility] 08-07-2024 10:30-0400 Heart rate 68 /min [facility] 08-07-2024 10:30-0400 SaO2% (BldA) [Mass fraction] 97 % [facility] 08-07-2024 10:30-0400 Systolic blood pressure 116 mm[Hg] [facility] 04-29-2024 11:50-0500 Body height 170.18 cm [facility] 04-29-2024 11:50-0500 Body mass index (BMI) [Ratio] 26.9 kg/m2 [facility] 04-29-2024 11:50-0500 Body weight 78.18 kg [facility] 04-29-2024 11:50-0500 Diastolic blood pressure 74 mm[Hg] [facility] 04-29-2024 11:50-0500 Heart rate 70 /min [facility] 04-29-2024 11:50-0500 Respiratory rate 12 /min [facility] 04-29-2024 11:50-0500 Systolic blood pressure 121 mm[Hg] [facility] 12-24-2023 09:06-0400 Body height 170.18 cm [facility] 12-24-2023 09:06-0400 Body mass index (BMI) [Ratio] 25.7 kg/m2 [facility] 12-24-2023 09:06-0400 Body weight 74.61 kg [facility] 12-24-2023 09:06-0400 Diastolic blood pressure 76 mm[Hg] [facility] 12-24-2023 09:06-0400 Heart rate 65 /min [facility] 12-24-2023 09:06-0400 Respiratory rate 12 /min [facility] 12-24-2023 09:06-0400 Systolic blood pressure 130 mm[Hg] [facility] 12-13-2022 08:30-0400 Body height 170.18 cm Ricky Ball Other [employer] [facility] [employer] Other 12-13-2022 08:30-0400 Body mass index (BMI) [Ratio] 25.68 kg/m2 Ricky Ball Other [employer] [facility] [employer] Other 12-13-2022 08:30-0400 Body weight 74.39 kg Ricky Ball Other [employer] [facility] [employer] Other 12-13-2022 08:30-0400 Diastolic blood pressure 71 mm[Hg] Ricky Ball Other [employer] Other 12-13-2022 08:30-0400 Respiratory rate 12 /min Ricky Ball Other [employer] Other 12-13-2022 08:30-0400 Systolic blood pressure 108 mm[Hg] Ricky Ball Other [employer] Other 06-16-2022 13:30-0500 Body height 170.18 cm Ricky Ball Other [employer] Other 06-16-2022 13:30-0500 Body mass index (BMI) [Ratio] 25.84 kg/m2 Ricky Ball Other [employer] Other 06-16-2022 13:30-0500 Body weight 74.84 kg Ricky Ball Other [employer] Other 06-16-2022 13:30-0500 Diastolic blood pressure 70 mm[Hg] Ricky Ball Other [employer] Other 06-16-2022 13:30-0500 Respiratory rate 12 /min Ricky Ball Other [employer] Other 06-16-2022 13:30-0500 Systolic blood pressure 118 mm[Hg] Ricky Ball Other [employer] Other 10-13-2021 10:30-0400 Body height 170.18 cm Mary Menard Other [employer] Other 10-13-2021 10:30-0400 Body mass index (BMI) [Ratio] 25.06 kg/m2 Mary Menard Other [employer] Other 10-13-2021 10:30-0400 Body temperature 97.1 [degF] Mary Menard Other [employer] Other 10-13-2021 10:30-0400 Body weight 72.58 kg Mary Menard Other [employer] Other 10-13-2021 10:30-0400 Diastolic blood pressure 80 mm[Hg] Mary Menard Other [employer] Other 10-13-2021 10:30-0400 SaO2% (BldA) [Mass fraction] 97 % Mary Menard Other [employer] Other 10-13-2021 10:30-0400 Systolic blood pressure 110 mm[Hg] Mary Menard Other [employer] Other Encounters Encounter Date Encounter Type Care Provider Facility Start: 12-17-2024 End: 12-17-2024 Suyapa Thomason MD Work Phone: [facility] Start: 12-17-2024 End: 12-17-2024 Suyapa Thomason MD Work Phone: [facility] Start: 12-17-2024 End: 12-17-2024 Office outpatient visit 15 minutes Iliana Thomason MD Work Phone: [facility] Comment on above: Seborrheic keratosis (Primary Dx); Lentigines; Melanocytic nevi of trunk; History of basal cell carcinoma Start: 12-17-2024 End: 12-17-2024 ambulatory ILIANA THOMASON Not Available Start: 11-26-2024 End: 11-26-2024 [facility]AK [facility] Start: 11-26-2024 End: 12-01-2024 Bamboo flowsheet Amaris PATHAK Work Phone: [facility] Start: 11-26-2024 End: 12-01-2024 Clinisync Result Encounter Amaris PATHAK Work Phone: [facility] Unsolicited Start: 11-26-2024 End: 11-26-2024 Patient encounter procedure Amaris PATHAK Work Phone: [facility] Start: 11-26-2024 End: 11-26-2024 Periodic preventive med est patient 40-64yrs Amaris PATHAK Work Phone: [facility] Comment on above: Well woman exam with routine gynecological exam; Encounter for screening mammogram for malignant neoplasm of breast; Postmenopausal state Start: 11-26-2024 End: 11-26-2024 ambulatory AMARIS JUAREZ Not Available Start: 08-07-2024 End: 08-07-2024 ambulatory [facility] Work Phone: Start: 08-07-2024 End: 08-07-2024 Patient encounter procedure [facility] Work Phone: Start: 04-29-2024 End: 04-29-2024 ambulatory [facility] Work Phone: Start: 04-29-2024 End: 04-29-2024 Patient encounter procedure [facility] Work Phone: Start: 01-14-2024 End: 01-14-2024 ambulatory ADRIANA BAIRON Not Available Start: 01-14-2024 End: 01-14-2024 Postop follow up visit related to original px Adriana Bairon DO Work Phone: [facility] Comment on above: Osteopenia, unspecif ied location Start: 12-24-2023 End: 12-24-2023 ambulatory [facility] Work Phone: Start: 12-24-2023 End: 12-24-2023 Encounter for general adult medical examination without abnormal findings [facility] Start: 12-24-2023 End: 12-24-2023 Patient encounter procedure [facility] Work Phone: Start: 12-20-2023 Patient encounter status [facility] Start: 12-20-2023 Non-patient / Non-visit [facility] Work Phone: Start: 11-22-2023 Non-patient / Non-visit [facility] Work Phone: Start: 06-29-2023 End: 06-29-2023 ambulatory [facility] Work Phone: Start: 06-29-2023 End: 06-29-2023 Patient encounter procedure [facility] Work Phone: Start: 05-29-2023 Chart abstracting Iliana starr MD Work Phone: [facility] Start: 05-23-2023 End: 05-23-2023 Patient encounter procedure Iliana Thomason MD Work Phone: [facility] Comment on above: Basal cell carcinoma of skin of left lower limb, including hip (Primary Dx) Start: 04-17-2023 ([facility]) [facility] Ricky Parmar [facility] Start: 04-17-2023 End: 04-17-2023 ambulatory Ricky Parmar Other [employer] Other Start: 04-17-2023 End: 04-17-2023 Patient encounter procedure [facility] Work Phone: Start: 12-13-2022 End: 12-13-2022 ambulatory Ricky Parmar Other [employer] Other Start: 12-13-2022 Encounter for genera l adult medical examination without abnormal findings Ricky Parmar [facility] Start: 12-13-2022 Periodic preventive med est patient 40-64yrs Ricky Parmar [facility] Start: 10-10-2022 End: 10-10-2022 ambulatory Ricky Parmar Other [employer] Other Start: 10-10-2022 Telephone encounter Ricky Parmar [facility] Start: 08-09-2022 End: 08-09-2022 ambulatory Ricky Parmar Other [employer] Other Start: 08-09-2022 Office outpatient vi sit 15 minutes Ricky Parmar [facility] Start: 07-14-2022 End: 07-14-2022 ambulatory Ricky Parmar Other [employer] Other Start: 07-14-2022 Telephone encounter Ricky Parmar [facility] Start: 07-13-2022 End: 07-14-[address] RICKY PARMAR Facility:[facility] Start: 06-16-2022 End: 06-16-2022 ambulatory Ricky Parmar Other [employer] Other Start: 06-16-2022 Office outpatient vi sit 15 minutes Ricky Parmar [facility] Start: 06-12-2022 End: 06-13-2022 ambulatory [...] 10-13-2021 End: 10-13-2021 ambulatory Mary [place] Other [facility] [employer] Other Start: 10-13-2021 [facility] visit new patient Mary ocampo [facility] Start: 09-14-2021 End: 09-15-[address] VERONIKA HORTON Facility:H1 Start: 09-09-2021 End: 09-10-[address] CHANG LISTED REQUEST Facility:H1 Start: 09-02-2021 End: 09-03-[address] RICKY PARMAR Facility:[facility]1 Procedures Date Procedure Procedure Detail Performing Clinician Start: 11-26-2024 IGP,APTIMA HPV,AGE GDLN Amaris PATHAK Work Phone: Start: 05-23-2023 DESTRUCTION OF LESION E fany Thomason MD Work Phone: Plan of Treatment Date Care Activity Detail Author Start: 12-17-2025 End: 12-17-2025 Patient encounter procedure 12/17/2025 10:30 AM EDT Office Visit [facility] [address] [place] [address] Iliana Thomason MD [address] [place], [place] [id number] [facility] Start: 12-01-2025 End: 12-01-2025 Patient encounter procedure 12/01/2025 9:00 AM EDT Procedure Visit [facility] [address] [id number] Amaris Juarez PA [address] [place] [address] [facility] Start: 12-17-2024 End: 12-17-2024 Patient encounter procedure [facility] Comment on above: Arrived Start: 11-26-2024 End: 01-26-2026 MG Breast - bilateral Screening Bilateral screening mammogram Imaging Routine Encounter for screening mammogram for malignant neoplasm of breast Expected: 11/26/2024, Expires: 01/26/2026 [facility] Work Phone: Comment on above: Expected: 11/26/2024 , Expires: 01/26/2026 Start: 11-26-2024 End: 11-26-2024 Patient encounter procedure [facility] Comment on above: Arrived Start: 11-20-2024 End: 11-20-2024 Patient encounter procedure 11/20/2024 9:50 AM EDT Office Visit [facility] [address] [place] [address] Iliana Thomason MD [address] [place] [address] [facility] Start: 11-27-2023 End: 11-27-2023 Patient encounter procedure 11/27/2023 9:20 AM EDT Office Visit [facility] [address] [place] [address] Iliana Thomason MD [address] [place] [address] [facility] THIN PREP TIS PAP AN D HR HPV DNA THIN PREP TIS PAP AND HR HPV DNA Pathology and Cytology Routine Well woman exam with routine gynecological exam Ordered: 11/26/2024 [facility] Comment on above: Ordered: 11/26/2024 Payers Date Payer Category Payer Private Health Insurance [id number] 2008 Private Health Insurance [id number] 1962 Unknown [id number] [id number] 1962 Unknown [id number] 2.16.840.1.204236.3.579.2.593 1962 Unknown [id number] 2.16.840.1.501400.3.579.2.593 1962 Unknown [id number] 2.16.840.1.928634.3.579.2.593 1962 Unknown [id number] 2.16.840.1.874639.3.579.2.593 1962 Unknown [id number] 2.16.840.1.326823.3.579.2.593 1962 Unknown [id number] 2.16.840.1.096789.3.579.2.593 1962 Unknown [id number] 2.16.840.1.907190.3.579.2.593 1962 Unknown [id number] 2.16.840.1.173925.3.579.2.593 1962 Unknown [id number] 2.16.840.1.198751.3.579.2.593 1962 Unknown [id number] 2.16.840.1.306971.3.579.2.125 9 1962 Unknown [id number] 2.16.840.1.289213.3.579.2.125 9 1962 Unknown [id number] 2.16.840.1.663266.3.579.2.125 9 1959 Self-pay 1959 Unknown [id number] Private Health Insurance [id number] [id number] Private Health Insurance [facility] [id number] Unknown [id number] 2.16.840.1.789603.3.579.2.593 Unknown [id number] 2.16.840.1.147188.3.579.2.593 Unknown [id number] 2.16.840.1.677181.3.579.2.593 Unknown [id number] ..840.1.512303.3.579.2.593 Social History Date Type Detail Facility Start: 05-23-2023 End: 12-17-2024 Sex Assigned At [facility] [employer] Other Start: 04-06-2023 Tobacco smoking status PRIS Never smoked tobacco [facility] Start: 04-06-2023 End: 05-29-2023 Tobacco use and exposure Smokeless tobacco non-user [facility] Start: 05-23-2023 End: 12-17-2024 History of Social function [facility] Start: 1960 Sex Assigned At Not on file [facility] Start: 05-29-2023 End: 06-29-2023 Tobacco smoking status [facility] Ex-smoker [facility] History of tobacco use Current smoker [facility] History of tobacco use Cigarette Smoker [facility] Start: 1960 Sex Assigned At Female F [facility] Start: 04-29-2024 End: 08-07-2024 Sex Female (finding) [facility] Clinical Notes 09-02-2021 to 12-17-2024 Iliana Thomason MD - 12/17/2024 10:05 AM LAWSON Ann - 11/26/2024 10:00 AM Aurora Jaime LPN - 01/14/2024 8:00 AM Bello Thomason MD - 05/23/2023 9:20 AM EST Note Date & Type Note Facility 12-17-2024 History of Presen t illness Narrative Skin Check Location: Patient requests a full body skin examination Dermatologic history: history of Basal Cell Carcinoma Last visit: 1 year ago Established patient All pertinent medical history, medications, and allergies were reviewed. General Exam: alert, oriented to person, place, and time, normal affect, well appearing Unaccompanied Scalp, Examined , exam limited by hair Right leg Examined Head, Face Examined Left leg Examined Neck Examined Right foot Examined Chest Examined Left foot Examined Back Examined Buttocks Examined Patient kept underwear on Abdomen Examined Digits,nails: Examined Right arm Examined Patient wearing nail kazakh, Denies dark streaks on toenails Left arm Examined Lymphatics: Not examined Hands Examined Skin Exam 1. SEBORRHEIC KERATOSIS Generalized Stuck on verrucous, garcia-brown papules and plaques. Patient was counseled regarding these benign growths. Removal is normally not necessary, but they may be removed if they are symptomatic or for cosmetic reasons. 2. LENTIGINES Generalized Scattered garcia macules in sun-exposed areas. The patient was informed that lentigines are benign pigmented lesions that occur on sun-exposed and sun-damaged skin. No treatment is necessary. Recommended regular use of broad spectrum sunscreen SPF 30 or higher 3. MELANOCYTIC NEVI OF TRUNK Trunk Scattered evenly pigmented, garcia to brown macules and papules, no suspicious features Counseled regarding these benign growths. Rarely, a nevus can develop into malignant melanoma, so any changing nevi should be promptly re-evaluated. 4. HISTORY OF BASAL CELL CARCINOMA left thigh No evidence of recurrence at BCC scar. The patient was counseled that scars from excisional sites of nonmelanoma skin cancers should be monitored closely for recurrence. The patient was instructed to contact the office for any new, changing, or symptomatic moles. The patient was also instructed to contact the office for any new lesions that develop within or around the previous surgery scar. Next Visit: 1 year documented in this encounter [facility] 11-26-2024 History of Presen t illness Narrative [...] nursing note reviewed. Exam conducted with a coal deliverer present. Vitals: Estimated body mass index is 27.1 kg/m as calculated from the following: Height as of 24: 5' 7 . Weight as of this [...] of: [place] documented in this encounter [facility] 01-14-2024 History of Presen t illness Narrative Reason for Appointment: Patient ID: Fiordaliza Lopez is a 63 y.o. female who presents for No chief complaint on file. Patient presents today via telephone call for a telehealth appointment. Patients Phone #: [phone] (mobile) Current Medications: has a current medication [...] Surgical History: Procedure Laterality Date CERVIX REMOVAL 2008 partial removal Allergies Allergen Reactions Pollen Extract [...] Adriana Waddell DO documented in this encounter [facility] 05-23-2023 History of Presen t illness Narrative [...] left lower limb, including hip Left Thigh Martin'S Additions papule at biopsy site Destr of lesion Complexity: simple Destruction method: electrodesiccation and curettage Informed consent: discussed and consent obtained Informed consent comment: The risks of the procedure were discussed, including, but not limited to risks of scarring, darker or manager house pigmentary changes, recurrence, infection, and incomplete removal [...] lidocaine used: 1.0 cc Previous accession number: [id number] ED&C today, see procedure note. Return to clinic prior to next scheduled visit for any signs or symptoms of recurrence, reviewed the signs and symptoms. Next Visit: 6 months FBSE documented in this encounter [facility] 04-17-2023 Evaluation note Encounter Date Diagnosis Assessment Notes Apr, Acute bronchitis due to other specified organisms (ICD-10 - J20.8) Instructed to use Robitussin or Mucinex for cough, saline or Flonase NS for congestion, Tylenol for pain and fever. Apr, Cigarette nicotine dependence in remission (ICD-10 - F17.211) May increase risk for prolonged illness [employer] Other 08-30-2023 Evaluation note* Encounter Date Diagnosis Assessment Notes Treatment Notes Treatment Clinical Notes Nov, Wellness examination (ICD-10 - Z00.00) Healthy diet and exercise. Reviewed age-appropriate preventive testing recommended. Nov, Atherosclerosis of anvik artery of both lower extremities with intermittent [...] Instructed on monthly SBE and yearly Mammogram [employer] Other 04-26-2023 Evaluation note* Encounter Date Diagnosis Assessment Notes Treatment Notes Treatment Clinical Notes Jul, Acute non-recurrent maxillary sinusitis (ICD-10 - J01.00) Instructed to use Robitussin or Mucinex for cough, saline or Flonase NS for congestion, Tylenol for pain and fever. Jul, Suspected COVID-19 virus infection (ICD-10 - Z20.132) Encouraged to test and notify office if positive results [employer] Other 03-03-2023 Evaluation note* Encounter Date Diagnosis [...] - R04.0) Saline NS daily. Avoid NSAIDs [employer] Other 09-16-2022 NotePROCEDURE: XR ANKLE RT MIN 3 VIEWS COMPARISON: None. HISTORY: Pain of right ankle joint FINDINGS: BONES:No fracture, acute abnormality, or significant arthropathy. SOFT TISSUES:Negative. No visible soft tissue swelling. EFFUSION:None visible. OTHER: Negative. IMPRESSION: No acute abnormality Electronically authenticated by: VERONIKA HORTON Date: 2021-12-30 16:32[id number] NotePROCEDURE: XR FOOT RT MIN 3 VIEWS COMPARISON: 09/14/2021 HISTORY: Pain in right foot FINDINGS: BONES:No fracture, acute abnormality, or significant arthropathy. SOFT TISSUES:Negative. No visible soft tissue swelling. EFFUSION:None visible. OTHER: Negative. IMPRESSION: No acute abnormality Electronically authenticated by: VERONIKA HORTON Date: 2021-10-26 19:43[facility] [id number] Evaluation note* Encounter Date Diagnosis Assessment Notes Treatment Notes Treatment Clinical Notes Sep, Varicose veins of bilateral lower extremities with other complications (ICD-10 - I83.893) We reviewed her lower extremity AB[facility] which revealed no hemodynamically significant peripheral arterial [...] agrees with this plan, denies any questions. [employer] Other 06-01-2022 NotePROCEDURE: XR FOOT RT MIN 3 VIEWS COMPARISON: 09/02/2021 HISTORY: Pain in right foot FINDINGS: BONES:No fracture, acute abnormality, or significant arthropathy. SOFT TISSUES:Negative. No visible soft tissue swelling. EFFUSION:None visible. OTHER: Negative. IMPRESSION: No acute disease. Electronically authenticated by: VERONIKA HORTON Date: 2021-09-14 11:59[facility] [id number] NotePROCEDURE: XR FOOT RT MIN 3 VIEWS [...] authenticated by: DORIE OROZCO Date: 2021-09-02 09:15[facility] noteNo InformationNort [employer] Other Evaluation note* Diagnosis Basal cell carcinoma of skin of left lower limb, including hip- Primary [facility] noteNo assessment information availableOhio[facility] Work Phone: Evaluation note* Diagnosis Onset Date Resolution Status [id number] acute Chronic venous insufficiency of lower extremity acute Cigarette nicotine dependence in remission acute Elevated cholesterol acute Hypothyroid acute Screening mammogram for breast cancer acute Wellness examination acute [facility] Work Phone: Evaluation note* Diagnosis Osteopenia, unspecified location documented in this encounter [facility]* Diagnosis Onset Date Resolution Status Admit Date Maxillary sinusitis acute August 07, 2024 10:25am [facility] Work Phone: Evaluation note* Diagnosis Well woman exam with routine gynecological exam Routine gynecological examination Encounter for screening mammogram for malignant neoplasm of breast Postmenopausal state Asymptomatic postmenopausal status (age-related) (natural) documented in this encounter [facility]* Diagnosis Seborrheic keratosis- Primary Lentigines Melanocytic nevi of trunk History of basal cell carcinoma Personal history of other malignant neoplasm of skin [facility] - Reported* Type Description Date Medical History HPV Medical History PAD Surgical History T&A Surgical History Right Shoulder, bone spur Surgical History Cervix, HPV Hospitalization History See past surgical hx [employer] 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 Other Summary Purpose Family History No Family [...] disorder Unknown Malignant neoplasm Unknown Advance Directives No Advanced Directives Records Found Advance Directive Response Recorded Date/ Time Advance Directives No May 14, 2023 4:23pm Advance Directive Response Recorded Date/ Time Advance Directives No May 14, 2023 3:23pm Chief Complaint and Reason for Visit Chief Complaint Sinus Infection-Test ing For [id number] sinus infection Chief Complaint Wellness Reason for Visit [id number] Chronic venous insufficiency of lower extremity Cigarette [...] Comments Follow-up Reason Comments Well Women Visit Reason Comments Skin Check INFORMATION SOURCE (unrecogn ized section and content) DATE CREATED AUTHOR 07/18/2022 [facility] DATE CREATED AUTHOR AUTHOR'S ORGANIZ ATION 12/18/[address] [facility] EPIC Care Teams (unrecognized [...] Provider Active Start: November 22, 2023 Amaris Juarez PA-C Attending Provider Active Start : November [...] June 29, 2023 End: June 29, 2023 Air Tester Relationship Specialty Start Date End Date Ricky Parmar MD [address] [place] [address] PCP - General Internal Medicine 11/22/23 Team Status: Inactive Member Role Status Dates Ricky Parmar DO Primary Care Provider Active Start: August 07, 2024 End: August 07, 2024 Samara Estevez APRN PRIMARY GRADE TEACHER-C Attending Provider Act alfred Start: August 07, 2024 End: August 07, 2024 Air Tester Relationship Specialty Start Date End Date Ricky Parmar DO [address] [place] [address] PCP - General Internal Medicine 11/22/23 Air Tester Relationship Specialty Start Date End Date Ricky Parmar DO [address] [place] [address] PCP - General Internal Medicine 11/22/23 Air Tester Relationship Specialty Start Date End Date Ricky Parmar DO [address] [place] [address] PCP - General Internal Medicine 11/22/23 Goals [...] BE BASED ON THE PRIMARY CLINICAL RECORDS. [facility] provides no warranty or guarantee of the accuracy or completeness of information in this document.
== END 2024-12-22 09:23 | disposition home or self-care (01) ==
LOC: MAMMO 09:22
PROVIDERS: Visit Provider Physician Assistant
DX: Z12.31 Encounter for screening mammogram for malignant neoplasm of breast (principal)
CPT/HCPCS: 77063; 77067

== ENCOUNTER 2025-01-29 08:04 | Outpatient (OUT) | payer OTHER, SELFPAY ==
--- OUTSIDE RECORDS SUMMARY | 2025-01-28 14:07 | XMS_ITS | CCD ---
Author Organization [facility] Care Team Providers Care Skip Tracer Name Role Phone Mary Menard Unavailable Ricky [...] HIGHLANDER, NATA Siegel Attending Unavailable HIGHLANDER, NATA Seigel Admitting Unavailable HIGHLANDER, NATA Siegel Consulting Unavailable BALL, DR BOUCHER Consulting Unavailable BALL, DR BOUCHER Primary Care Unavailable GHULAM, DR BUOCHER Attending Unavailable GHULAM, DR BOUCHER Admitting Unavailable REQUEST, DR CHANG LISTED Attending Unavaila ble REQUEST, DR CHANG LISTED Admitting Unavaila ble GHULAM, DR BOUCHER Consulting Unavailable GHULAM, DR BOUCHER Primary Care Unavailable POINT [place], DR VERONIKA Morataya Consulting Unavailable GHULAM, DR BOUCHER Primary Care Unavailable NATA HENRY [...] to adverse reactions 4 Unknown, Unknown Reaction [facility] (4 sources) Pollen Allergy to substance 4 Unknown Reaction [facility] Medications Current Medications Medication Drug Class(es) [...] visceral atherosclerosis (20 sources) 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, bilateral legs; Translations: [Peripheral [...] hemorrhage] Other bone disease and musculoskeletal deformities (15 sources) Osteopenia; Translations: [Other specified disorders of [...] Test Name Value Interpretation Reference Range Facility MM TOMOSYNTHESIS SCREENING B Ion 12-22-2024 [place] [address] Mammography Report Signed Patient: FIORDALIZA LOPEZ MR#: [id number] : 1960 Acct:[id number] Age/Sex: 64 / F ADM Date: 12/22/24 Loc: MAMMO Attending Dr: Amaris Juarez Ordering Physician: Amaris Juarez Results: Date of Service: 12/22/24 Follow Up: Procedure(s): MM tomosynthesis screening BI Accession Number(s): [id number] cc: Amaris Juarez; Physician,Non-Staff M.D. Patient Name: FIORDALIZA LOPEZ MR#: [id number] : 1960 Exam Date: 12/22/2024 Ordering Doctor: LAWSON JUAREZ . RADIOLOGY REPORT PROCEDURE: MM TOMOSYNTHESIS SCREENING BI COMPARISON: MM TOMOSYNTHESIS SCREENING BI, 12/21/2023. MG MAMM SCREEN 3D NORMA CAD, 06/09/2022. MG MAMM SCREEN 3D NORMA CAD, 06/03/2021. MG MAMM NORMA SCRN W CAD DIG, 04/24/2013. INDICATIONS: Screening Calculator Name NCI Breast Cancer Risk Assessment Tool 5 Year Breast Cancer Risk 1.80% Lifetime Breast Cancer Risk 8.20% Personal Breast Cancer No Personal Ovarian Cancer No Treatments None Family Cancers None LOCATION: [facility] BREAST COMPOSITION: The breasts are heterogeneously dense, which may obscure small masses. FINDINGS: RIGHT BREAST: No significant suspicious finding. LEFT BREAST: No significant suspicious finding. DIAGNOSTIC CATEGORY 1--NEGATIVE. RECOMMENDATIONS: ROUTINE MAMMOGRAM AND CLINICAL EVALUATION IN 12 MONTHS. Dictated by: Sammy Murray DO on 12/22/2024 at 12:26 Approved by: Sammy Murray DO on 12/22/2024 at 12:35 Dictated By: Sammy Murray D.O. Signed By: 12/22/24 1237 DD/ 1236 TD/TT: Emergency Registrar: [facility] Radiology, Radiologist, MD - 12/22/2024 [place] [address] Mammography Report Signed Patient: FIORDALIZA LOPEZ MR#: [id number] : 1960 Acct:[id number] Age/Sex: 64 / F ADM Date: 12/22/24 Loc: MAMMO Attending Dr: Amairs Juarez Ordering Physician: Amaris Juarez Results: Date of Service: 12/22/24 Follow Up: Procedure(s): MM tomosynthesis screening BI Accession Number(s): [id number] cc: Amaris Juarez; Physician,Non-Staff M.DPrashanth Patient Name: FIORDALIZA LOPEZ MR#: [id number] : 1960 Exam Date: 12/22/2024 Ordering Doctor: LAWSON JUAREZ . RADIOLOGY REPORT PROCEDURE: MM TOMOSYNTHESIS SCREENING BI COMPARISON: MM TOMOSYNTHESIS SCREENING BI, 12/21/2023. MG MAMM SCREEN 3D NORMA CAD, 06/09/2022. MG MAMM SCREEN 3D NORMA CAD, 06/03/2021. MG MAMM NORMA SCRN W CAD DIG, 04/24/2013. INDICATIONS: Screening Calculator Name NCI Breast Cancer Risk Assessment Tool 5 Year Breast Cancer Risk 1.80% Lifetime Breast Cancer Risk 8.20% Personal Breast Cancer No Personal Ovarian Cancer No Treatments None Family Cancers None LOCATION: [facility] BREAST COMPOSITION: The breasts are heterogeneously dense, which may obscure small masses. FINDINGS: RIGHT BREAST: No significant suspicious finding. LEFT BREAST: No significant suspicious finding. DIAGNOSTIC CATEGORY 1--NEGATIVE. RECOMMENDATIONS: ROUTINE MAMMOGRAM AND CLINICAL EVALUATION IN 12 MONTHS. Dictated by: Sammy Murray DO on 12/22/2024 at 12:26 Approved by: Sammy Murray DO on 12/22/2024 at 12:35 Dictated By: Sammy Murray D.O. Signed By: 12/22/24 1237 DD/ 1236 TD/TT: Emergency Registrar: [facility] Radiology Study observation (narrative) [facility] MM TOMOSYNTHESIS SCREENING B IOrdered By: Radiologist Radiology on 12-22-2024 [facility] Work Phone: IGP,APTIMA HPV,AGE GDLNon AGE GDLN ACOG TESTING Note . [facility] Comment on above: TESTS RESULT FLAG UN ITS REF RANGE LAB Clinician Provided Cytology Information Source.............Cervix;Endocervix No. of containers..01 ThinPrep Vial Age Algo ACOG Jazmine... 30-65 01 FLAG LEGEND: L-Low Normal,H-High Normal,LL-Alert Low,HH-Alert High <-Panic Low,>-Panic High,A-Abnormal,AA-Critical Abnormal Performed at: 01 =G [address] [address] Desi Harris MD, HPV APTIMA Negative Negative [facility] Comment on above: This nucleic acid am plification test detects fourteen high- risk HPV types (16,18,31,33,35,39,45,51,52,56,58,59,66,68) without differentiation. Performed at: =G - [facility] [address] [place], [place] [id number] Chief Yeoman: Desi Harris MD, Phone: [phone] Performed at: WB - [facility] [address], [place] [id number] Chief Yeoman: Desi Harris MD, Phone: [phone] IGP, APTIMA HPV, RFX 16/18,45 Note . [facility] Comment on above: TESTS RESULT FLAG UN ITS REF RANGE LAB DIAGNOSIS: 02 NEGATIVE FOR INTRAEPITHELIAL LESION OR MALIGNANCY. CELLULAR CHANGES ASSOCIATED WITH ATROPHY ARE PRESENT. THIS SPECIMEN WAS RESCREENED PART OF OUR COVER ASSEMBLER PROGRAM. Specimen adequacy: 02 Satisfactory for evaluation. Endocervical component may not be distinguished in cases of atrophy. Performed by: 02 Kristie Cohen, Gas Pit Worker (ASCP) QC reviewed by: 02 Sravanthi Higginbotham, Supervisory Gas Pit Worker (ASCP) . 02 Note: Note 02 The [...] Low,>-Panic High,A-Abnormal,AA-Critical Abnormal Performed at: [address] [address] Desi Harris MD, BRUSH-SPATULA CERVIX [facility]IX [facility] Basophils Auto (Bld) [#/Vol] on 12-20-2023 Basophils (Bld) [#/Vol] 0.1 10 3/uL 0.0-0.1 [facility] Basophils/100 WBC Auto (Bld) on 12-20-2023 Basophils/100 WBC (Bld) 1.0 % 0.2-2.0 [facility] Cholesterol in LDL Calc [Mas s/Vol]on 12-20-2023 Cholesterol in LDL [Mass/Vol] 149.0 mg/dL [facility] Comment on above: <100 mg/dl [id number] 0-129 mg/dl NEAR OR ABOVE [id number] mg/dl BORDERLINE [id number] mg/dl HIGH>190 mg/dl VERY HIGH Cholesterol in VLDL Calc [Ma ss/Vol]on 12-20-2023 Cholesterol in VLDL [Mass/Vol] 22.6 mg/dL [facility] Eosinophils/100 WBC Auto (Bl d)on 12-20-2023 Eosinophils/100 WBC (Bld) 3.0 % 0.9-7.0 [facility] Erythrocyte distribution wid th Auto (RBC) [Ratio]on 12-20-2023 Erythrocyte distribution width (RBC) [Ratio] 13.3 % 11.0-15.0 [facility] Estimated glomerular filtrat ion rate (GFR) non- Americanon 12-20-2023 GFR/1.73 sq M.predicted among non-blacks MDRD (S/P/Bld) [Vol rate/Area] mL/min/{1.73_m2} >=60 [facility] Globulin Calc (S) [Mass/Vol] on 12-20-2023 Globulin (S) [Mass/Vol] 3.8 g/dL [facility] Hematocrit Auto (Bld) [Volum e fraction]on 12-20-2023 Hematocrit (Bld) [Volume fraction] 39.5 % 36.0-48.0 [facility] Hemoglobin [Mass/volume] in Bloodon 12-20-2023 Hemoglobin (Bld) [Mass/Vol] 13.2 g/dL 12.0-16.0 [facility] Laboratory - Chemistry and C hemistry - challengeon 12-20-2023 Albumin [Mass/Vol] 3.7 g/dL 3.4-5.0 [facility] ALP [Catalytic activity/Vol] 92 U/L 46-116 [facility] ALT [Catalytic activity/Vol] 32 U/L 14-59 [facility] AST [Catalytic activity/Vol] 22 U/L 15-37 [facility] Bilirubin [Mass/Vol] 0.3 mg/dL 0.2-1.0 [facility] Calcium [Mass/Vol] 9.3 mg/dL 8.5-10.1 [facility] Chloride [Moles/Vol] 102 mmol/L 98-107 [facility] Cholesterol [Mass/Vol] 261 mg/dL High <=200 [facility] Cholesterol in HDL [Mass/Vol] 90 mg/dL High 40-60 [facility] Comment on above: > or =60 mg/dl - LOW CARDIOVASCULAR RISK<40 mg/dl - HIGH CARDIOVASCULAR RISK CO2 [Moles/Vol] 29.3 mmol/L 21.0-32.0 [facility] Creatinine [Mass/Vol] 0.70 mg/dL 0.55-1.02 [facility] GFR/1.73 sq M.predicted MDRD (S/P/Bld) [Vol rate/Area] mL/min/{1.73_m2} >=60 [facility] Glucose [Mass/Vol] 73 mg/dL Low 74-106 [facility] Potassium [Moles/Vol] 4.0 mmol/L 3.5-5.1 [facility] Protein [Mass/Vol] 7.5 g/dL 6.4-8.2 [facility] Sodium [Moles/Vol] 137 mmol/L 136-145 [facility] Triglyceride [Mass/Vol] 113 mg/dL <=150 [facility] TSH Qn 0.020 m[IU]/L Low 0.358-3.740 [facility] Urea nitrogen [Mass/Vol] 14.0 mg/dL 7.0-18.0 [facility] Urea nitrogen/Creatinine [Mass ratio] 20.0 mg/mg [facility] Laboratory - Hematology and Cell countson 12-20-2023 Immature granulocytes/100 WBC (Bld) 0.1 % 0.0-0.5 [facility] Leukocytes [#/volume] correc trevor for nucleated erythrocytes in Blood by Automated counon 12-20-2023 WBC corrected for nucl RBC Auto (Bld) [#/Vol] 6.9 10 3/uL 4.0-11.0 [facility] Lymphocytes Auto (Bld) [#/Vo l]on 12-20-2023 Lymphocytes (Bld) [#/Vol] 2.1 10 3/uL 1.2-3.8 [facility] Lymphocytes/100 WBC Auto (Bl d)on 12-20-2023 Lymphocytes/100 WBC (Bld) 30.7 % 20.5-60.0 [facility] MCH Auto (RBC) [Entitic mass ]on 12-20-2023 MCH (RBC) [Entitic mass] 30.2 pg 26.7-34.0 [facility] MCHC Auto (RBC) [Mass/Vol]on 12-20-2023 MCHC (RBC) [Mass/Vol] 33.4 g/dL 29.9-35.2 [facility] MCV Auto (RBC) [Entitic vol] on 12-20-2023 MCV (RBC) [Entitic vol] 90.4 fL 81.0-99.0 [facility] Monocytes Auto (Bld) [#/Vol] on 12-20-2023 Monocytes (Bld) [#/Vol] 0.6 10 3/uL 0.3-0.8 [facility] Monocytes/100 WBC Auto (Bld) on 12-20-2023 Monocytes/100 WBC (Bld) 8.4 % 1.7-12.0 [facility] Neutrophils Auto (Bld) [#/Vo l]on 12-20-2023 Neutrophils (Bld) [#/Vol] 3.9 10 3/uL 1.4-6.5 [facility] Neutrophils/100 WBC Auto (Bl d)on 12-20-2023 Neutrophils/100 WBC (Bld) 56.8 % 43.0-75.0 [facility] No Panel Informationon 12-19 Eosinophils # (Auto) 0.2 10 3/uL 0.0-0.7 [facility] Immature Granulocyte # (Auto) 0.01 10 3/uL 0.00-0.03 [facility] Platelet mean volume Auto (B ld) [Entitic vol]on 12-20-2023 Platelet mean volume (Bld) [Entitic vol] 9.0 fL Low 9.5-13.5 [facility] Platelets Auto (Bld) [#/Vol] on 12-20-2023 Platelets (Bld) [#/Vol] 317 10 3/uL 150-450 [facility] RBC Auto (Bld) [#/Vol]on RBC (Bld) [#/Vol] 4.37 10 6/uL 4.20-5.40 [facility] Serum or plasma albumin/glob ulin mass ratioon 12-20-2023 Albumin/Globulin [Mass ratio] 1.0 {ratio} [facility] Serum or plasma anion gap de terminationon 12-20-2023 Anion gap [Moles/Vol] 9.7 mmol/L [facility] Serum or plasma total choles terol/high density lipoprotein (HDL) cholesterol mass jose 12-20-2023 Cholesterol.total/Ch olesterol in HDL [Mass ratio] 2.9 {ratio} [facility] Comment on above: 3.3 - 4.4 LOW RISK4. 4 - 7.1 AVERAGE RISK7.1 - 11.0 MODERATE RISK>11.0 HIGH RISK Human papilloma virus 16+18+ 31+33+35+39+45+51+52+56+58+59+66+68 DNA [Presence] in Josefina 11-22-2023 HPV 16+18+31+33+35+39+45 +51+52+56+58+59+66+6 8 DNA Probe+sig amp Ql (Cvx) Negative Negative [facility] Comment on above: This nucleic acid am plification test detects fourteen high- risk HPV types (16,18,31,33,35,39,45,51,52,56,58,59,66,68)without differentiation.Performed at: =G - [facility] [address], [place] [id number] Director: Desi Harris MD, Phone: [phone] at: WB - [facility] [address], [place] [id number] Director: Desi Harris MD, Phone: [phone] No Panel Informationon 11-21 HPV High Risk Other Comment Note . [facility] Comment on above: TESTS RESULT FLAG UN ITS REF RANGE LAB DI AGNOSIS: 02 NEGATIVE FOR INTRAEPITHELIAL LESION OR MALIGNANCY. CELLULAR CHANGES ASSOCIATED WITH ATROPHY ARE PRESENT.Specimen adequacy: 02 Satisfactory for evaluation. Endocervical component may not be distinguished in cases of atrophy.Performed by: Ashley Flores, Drapery Hand (ASCP). 02Note: Note 02 The Pap smear [...] Low,>-Panic High,A-Abnormal,AA-Critical Abnormal ---Performed at:02 WB [facility] [address] [facility] [place] [address] Desi Harris MD, Reference Lab Test Patient Age Note . [facility] Comment on above: TESTS RESULT FLAG UN ITS REF RANGE LAB Clinician Provided Cytology Information Source.............Cervix;Endocervix No. of containers..01 ThinPrep VialAge Algo FABYOG Jazmine... 30-65 01 FLAG LEGEND: L-Low Normal,H-High Normal,LL-Alert Low,HH-Alert High <-Panic Low,>-Panic High,A-Abnormal,AA-Critical Abnormal ---Performed at:01 =G [facility] [address] [facility] [place] [address] Desi Harris MD, [facility] 05-23-2023 Complexity: simple Destruction method: electrodesiccation and curettage Informed consent: discussed and consent obtained Informed consent comment: The risks of the procedure were discussed, including, but not limited to risks of scarring, darker or echometer engineer pigmentary changes, recurrence, infection, and incomplete [...] lidocaine used: 1.0 cc Previous accession number: [id number] [facility] [place] - TSHon 07-13-2022 TSH 0.013 uIU/mL Critically low 0.358-3.740 [facility] Comment on above: Performed By: #### D ATTSH #### [facility] [address] [place] [address] Dr. Yordan Ferguson TSH RANGE SEE BELOW Normal [facility] Comment on above: Result Comment: <0.3 4 UIU/ml HYPERTHYROID 0.34-5.60 UIU/ml EUTHYROID >5.60 UIU/ml HYPOTHYROID Performed By: #### D ATTSH #### [facility] [address] [place] [address] Dr. Yordan Ferguson [place] - TSHon 06-12-2022 TSH 0.020 uIU/mL Critically low 0.358-3.740 [facility] Comment on above: Performed By: #### D ATTSH #### [facility] [address] [place] [address] Dr. Yordan Ferguson TSH RANGE SEE BELOW Normal [facility] Comment on above: Result Comment: <0.3 4 UIU/ml HYPERTHYROID 0.34-5.60 UIU/ml EUTHYROID >5.60 UIU/ml HYPOTHYROID Performed By: #### D ATTSH #### [facility] [address] [address] [address] Yordan Ferguson MG MAMM SCREEN 3D NORMA CADon 06-09-2022 MG MAMM SCREEN 3D NORMA CAD Patient: FIORDALIZA LOPEZ Exam Date: 06/09/2022 : 1960 Gender:F Ordering : DR RICKY PARMAR D.O. Admission #: [id number] Family : Order #: [id number] CLICK HERE TO VIEW EXAM RADIOLOGY REPORT [...] Treatments None Family Cancers None LOCATION: [facility] BREAST COMPOSITION: Heterogeneously dense,which may obscure [...] MD on 06/09/2022 at 10:28 Normal [facility] TSHon 03-20-2022 TSH 0.072 uIU/mL Critically low 0.358-3.740 [facility] Comment on above: Performed By: #### T SH #### [facility] [address] [address] [address] Yordan Ferguson TSHon 02-01-2022 TSH 42.462 uIU/mL Critically high 0.358-3.740 [facility] Comment on above: Performed By: #### T SH #### [facility] [address] [address] [address] Yordan Ferguson MRI ANKLE RT WO [...] VERONIKA BANERJEE Date: 2022-01-07 22:45 Normal [facility] T3, TOTAL (TRIIODOTHYRONINE) on 12-15-2021 T3, TOTAL 75 ng/dL Normal 71-180 [facility] Comment on above: Performed By: #### T 3TOTAL #### [facility] [address] [place] [address] [address] [address] Yordan Ferguson THYROID PEROXIDASE ABon 09-0 Thyroid Peroxidase (TPO) Ab 244 IU/mL Critically high 0-34 [facility] Comment on above: Performed By: #### T POAB #### [facility] [address] [place] [address] Dr. Yordan Ferguson US THYROIDon 12-14-2021 US [...] by: DORIE OROZCO Date: 2021-12-14 07:04 Normal [facility] FREE T4on 12-13-2021 Free T4 [Mass/Vol] 0.43 ng/dL Critically low 0.76-1.46 Th [facility] Comment on above: Performed By: #### D ATTSH #### [facility] [address] [place] [address] Dr. Yordan Ferguson TSHon 12-13-2021 TSH 65.911 uIU/mL Critically high 0.358-3.740 [facility] Comment on above: Performed By: #### T SH #### [facility] [address] [place] [address] Dr. Yordan Ferguson [facility] CBC AUTO DIFFon 12-01-2021 BASO # 0.1 103/ul Normal 0.0-0.1 [facility] Comment on above: Performed By: #### D ATTSH #### [facility] [address] [place] [address] Dr. Yordan Ferguson Basophils/100 WBC (Bld) 1.1 % Normal 0.2-2.0 [facility] Comment on above: Performed By: #### D ATTSH #### [facility] [address] [place] [address] Dr. Yordan Ferguson EO # 0.4 103/ul Normal 0.0-0.7 [facility] Comment on above: Performed By: #### D ATTSH #### [facility] [address] [place] [address] Dr. Yordan Ferguson Eosinophils/100 WBC (Bld) 6.5 % Normal 0.9-7.0 [facility] Comment on above: Performed By: #### D ATTSH #### [facility] [address] [place] [address] Dr. Yordan Ferguson Erythrocyte distribution width (RBC) [Ratio] 13.6 % Normal 11.0-15.0 [facility] Comment on above: Performed By: #### D ATTSH #### [facility] [address] [place] [address] Dr. Yordan Ferguson Hematocrit (Bld) [Volume fraction] 40.6 % Normal 36.0-48.0 [facility] Comment on above: Performed By: #### D ATTSH #### [facility] [address] [place] [address] Dr. Yordan Ferguson Hemoglobin (Bld) [Mass/Vol] 13.4 g/dL Normal 12.0-16.0 [facility] Comment on above: Performed By: #### D ATTSH #### [facility] [address] [place] [address] Dr. Yordan Ferguson IG # 0.01 10e3/ul Normal 0.00-0.03 [facility] Comment on above: Performed By: #### D ATTSH #### [facility] [address] [place] [address] Dr. Yordan Ferguson IG % 0.2 % Normal 0.0-0.5 [facility] Comment on above: Performed By: #### D ATTSH #### [facility] [address] [place] [address] Dr. Yordan Ferguson LYMPH # 2.1 103/ul Normal 1.2-3.8 [facility] Comment on above: Performed By: #### D ATTSH #### [facility] [address] [place] [address] Dr. Yordan Ferguson Lymphocytes/100 WBC (Bld) 31.7 % Normal 20.5-60.0 [facility] Comment on above: Performed By: #### D ATTSH #### [facility] [address] [address] [address] Yordan Ferguson MCH (RBC) [Entitic mass] 31.6 pg Normal 26.7-34.0 [facility] Comment on above: Performed By: #### D ATTSH #### [facility] [address] [place] [address] Dr. Yordan Ferguson MCHC (RBC) [Mass/Vol] 33.0 g/dL Normal 29.9-35.2 [facility] Comment on above: Performed By: #### D ATTSH #### [facility] [address] [place] [address] Dr. Yordan Ferguson MCV (RBC) [Entitic vol] 95.8 fL Normal 81.0-99.0 [facility] Comment on above: Performed By: #### D ATTSH #### [facility] [address] [place] [address] Dr. Yordan Ferguson MONO # 0.6 103/ul Normal 0.3-0.8 [facility] Comment on above: Performed By: #### D ATTSH #### [facility] [address] [place] [address] Dr. Yordan Ferguson Monocytes/100 WBC (Bld) 8.6 % Normal 1.7-12.0 [facility] Comment on above: Performed By: #### D ATTSH #### [facility] [address] [place] [address] Dr. Yordan Ferguson NEUT # 3.4 103/ul Normal 1.4-6.5 [facility] Comment on above: Performed By: #### D ATTSH #### [facility] [address] [place] [address] Dr. Yordan Ferguson Neutrophils/100 WBC (Bld) 51.9 % Normal 43.0-75.0 [facility] Comment on above: Performed By: #### D ATTSH #### [facility] [address] [place] [address] Dr. Yordan Ferguson Platelet mean volume (Bld) [Entitic vol] 9.0 fL Critically low 9.5-13.5 [facility] Comment on above: Performed By: #### D ATTSH #### [facility] [address] [place] [address] Dr. Yordan Ferguson PLT 307 103/ul Normal 150-450 [facility] Comment on above: Performed By: #### D ATTSH #### [facility] [address] [place] [address] Dr. Yordan Ferguson RBC 4.24 106/ul Normal 4.20-5.40 [facility] Comment on above: Performed By: #### D ATTSH #### [facility] [address] [place] [address] Dr. Yordan Ferguson WBC 6.5 103/ul Normal 4.0-11.0 [facility] Comment on above: Performed By: #### D ATTSH #### [facility] [address] [place] [address] Dr. Yordan Ferguson [facility]ALTH[facility] PROFILEon 022 Albumin [Mass/Vol] 4.4 g/dL Normal 3.4-5.0 [facility] Comment on above: Performed By: #### H FPF #### [facility] [address] [place] [address] Dr. Yordan Ferguson Albumin/Globulin [Mass ratio] 1.2 {ratio} Normal [facility] Comment on above: Performed By: #### H FPF #### [facility] [address] [place] [address] Dr. Yordan Ferguson ALP [Catalytic activity/Vol] 75 U/L Normal 46-116 [facility] Comment on above: Performed By: #### H FPF #### [facility] [address] [place] [address] Dr. Yordan Ferguson ALT [Catalytic activity/Vol] 33 U/L Normal 14-59 [facility] Comment on above: Performed By: #### H FPF #### [facility] [address] [place] [address] Dr. Yordan Ferguson AST [Catalytic activity/Vol] 29 U/L Normal 15-37 [facility] Comment on above: Performed By: #### H FPF #### [facility] [address] [address] [address] Yordan Ferguson Bilirubin [Mass/Vol] 0.3 mg/dL Normal 0.2-1.0 [facility] Comment on above: Performed By: #### H FPF #### [facility] [address] [address] [address] Yordan Ferguson Calcium [Mass/Vol] 9.3 mg/dL Normal 8.5-10.1 [facility] Comment on above: Performed By: #### H FPF #### [facility] [address] [address] [address] Yordan Ferguson Chloride [Moles/Vol] 103 mmol/L Normal 98-107 [facility] Comment on above: Performed By: #### H FPF #### [facility] [address] [place] [address] Dr. Yordan Ferguson CHOL-HDL RATIO NORM SEE BELOW Normal [facility] Comment on above: Result Comment: 3.3 - 4.4 LOW RISK 4.4 - 7.1 AVERAGE RISK 7.1 - 11.0 MODERATE RISK >11.0 HIGH RISK Performed By: #### H FPF #### [facility] [address] [place] [address] Dr. Yordan Ferguson Cholesterol [Mass/Vol] 214 mg/dL Critically high <=200 [facility] Comment on above: Performed By: #### H FPF #### [facility] [address] [address] [address] Yordan Ferguson Cholesterol in HDL [Mass/Vol] 87 mg/dL Critically high 40-60 [facility] Comment on above: Performed By: #### H FPF #### [facility] [address] [place], [place] [address] Dr. Yordan Ferguson Cholesterol in LDL [Mass/Vol] 111.2 mg/dL Normal [facility] Comment on above: Performed By: #### H FPF #### [facility] [address] [address] [address] Yordan Ferguson Cholesterol.total/Ch olesterol in HDL [Mass ratio] 2.5 {ratio} Normal [facility] Comment on above: Performed By: #### H FPF #### [facility] [address] [place] [address] Dr. Yordan Ferguson CO2 [Moles/Vol] 28.0 mmol/L Normal 21.0-32.0 [facility] Comment on above: Performed By: #### H FPF #### [facility] [address] [address] [address] Yordan Ferguson Creatinine [Mass/Vol] 0.83 mg/dL Normal 0.55-1.02 [facility] Comment on above: Performed By: #### H FPF #### [facility] [address] [place] [address] Dr. Yordan Ferguson Globulin (S) [Mass/Vol] 3.6 g/dL Normal [facility] Comment on above: Performed By: #### H FPF #### [facility] [address] [address] [address] Yordan Ferguson Glucose [Mass/Vol] 86 mg/dL Normal 74-106 [facility] Comment on above: Performed By: #### H FPF #### [facility] [address] [place] [address] Dr. Yordan Ferguson HDL NORMAL > or = 60 mg/dl - LO W CARDIOVASCULAR RISK <40 mg/dl - HIGH CARDIOVASCULAR RISK Normal [facility] Comment on above: Performed By: #### H FPF #### [facility] [address] [address] [address] Yordan Ferguson LDL CALC NORMAL SEE BELOW Normal [facility] Comment on above: Result Comment: <100 mg/dl OPTIMAL 100 - 129 mg/dl NEAR OR ABOVE OPTIMAL 130 - 159 mg/dl BORDERLINE HIGH 160 - 189 mg/dl HIGH >190 mg/dl VERY HIGH Performed By: #### H FPF #### [facility] [address] [place] [address] Dr. Yordan Ferguson Potassium [Moles/Vol] 4.4 mmol/L Normal 3.5-5.1 [facility] Comment on above: Performed By: #### H FPF #### [facility] [address] [address] [address] Yordan Ferguson Protein [Mass/Vol] 8.0 g/dL Normal 6.4-8.2 [facility] Comment on above: Performed By: #### H FPF #### [facility] [address] [place] [address] Dr. Yordan Ferguson Sodium [Moles/Vol] 140 mmol/L Normal 136-145 [facility] Comment on above: Performed By: #### H FPF #### [facility] [address] [place] [address] Dr. Yordan Ferguson Triglyceride [Mass/Vol] 79 mg/dL Normal <=150 [facility] Comment on above: Performed By: #### H FPF #### [facility] [address] [place] [address] Dr. Yordan Ferguson TSH 98.063 uIU/mL Critically high 0.358-3.740 [facility] Comment on above: Result Comment: RERA N SPECIMEN PER PHYSICIAN REQUEST 12/06/21 DUPLICATED WELL @ 102.38 uIU/ml Performed By: #### H FPF #### [facility] [address] [place] [address] Dr. Yordan Ferguson Urea nitrogen [Mass/Vol] 17.0 mg/dL Normal 7.0-18.0 [facility] Comment on above: Performed By: #### H FPF #### [facility] [address] [place] [address] Dr. Yordan Ferguson Urea nitrogen/Creatinine [Mass ratio] 20.5 mg/mg Normal [facility] Comment on above: Performed By: #### H FPF #### [facility] [address] [address] [address] Yordan Ferguson VLDL CALC 15.8 mg/dL Normal [facility] Comment on above: Performed By: #### H FPF #### [facility] [address] [place] [address] Dr. Yordan Ferguson CBC AUTO DIFFon 09-09-2021 BASO # 0.1 103/ul Normal 0.0-0.1 [facility] Comment on above: Performed By: #### D ATCBC #### [facility] [address] [place] [address] Dr. Yordan Ferguson Basophils/100 WBC (Bld) 1.4 % Normal 0.2-2.0 [facility] Comment on above: Performed By: #### D ATCBC #### [facility] [address] [place] [address] Dr. Yordan Ferguson EO # 0.4 103/ul Normal 0.0-0.7 [facility] Comment on above: Performed By: #### D ATCBC #### [facility] [address] [place] [address] Dr. Yordan Ferguson Eosinophils/100 WBC (Bld) 6.6 % Normal 0.9-7.0 [facility] Comment on above: Performed By: #### D ATCBC #### [facility] [address] [place] [address] Dr. Yordan Ferguson Erythrocyte distribution width (RBC) [Ratio] 14.6 % Normal 11.0-15.0 [facility] Comment on above: Performed By: #### D ATCBC #### [facility] [address] [place] [address] Dr. Yordan Ferguson Hematocrit (Bld) [Volume fraction] 39.5 % Normal 36.0-48.0 [facility] Comment on above: Performed By: #### D ATCBC #### [facility] [address] [place] [address] Dr. Yordan Ferguson Hemoglobin (Bld) [Mass/Vol] 12.9 g/dL Normal 12.0-16.0 [facility] Comment on above: Performed By: #### D ATCBC #### [facility] [address] [place] [address] Dr. Yordan Ferguson IG # 0.01 10e3/ul Normal 0.00-0.03 [facility] Comment on above: Performed By: #### D ATCBC #### [facility] [address] [place] [address] Dr. Yordan Ferguson IG % 0.2 % Normal 0.0-0.5 [facility] Comment on above: Performed By: #### D ATCBC #### [facility] [address] [place] [address] Dr. Yordan Ferguson LYMPH # 1.9 103/ul Normal 1.2-3.8 [facility] Comment on above: Performed By: #### D ATCBC #### [facility] [address] [place] [address] Dr. Yordan Ferguson Lymphocytes/100 WBC (Bld) 32.6 % Normal 20.5-60.0 [facility] Comment on above: Performed By: #### D ATCBC #### [facility] [address] [place] [address] Dr. Yordan Ferguson MCH (RBC) [Entitic mass] 30.9 pg Normal 26.7-34.0 [facility] Comment on above: Performed By: #### D ATCBC #### [facility] [address] [place] [address] Dr. Yordan Ferguson MCHC (RBC) [Mass/Vol] 32.7 g/dL Normal 29.9-35.2 [facility] Comment on above: Performed By: #### D ATCBC #### [facility] [address] [place] [address] Dr. Yordan Ferguson MCV (RBC) [Entitic vol] 94.5 fL Normal 81.0-99.0 [facility] Comment on above: Performed By: #### D ATCBC #### [facility] [address] [place] [address] Dr. Yordan Ferguson MONO # 0.5 103/ul Normal 0.3-0.8 [facility] Comment on above: Performed By: #### D ATCBC #### [facility] [address] [place] [address] Dr. Yordan Ferguson Monocytes/100 WBC (Bld) 7.8 % Normal 1.7-12.0 [facility] Comment on above: Performed By: #### D ATCBC #### [facility] [address] [place] [address] Dr. Yordan Ferguson NEUT # 3.0 103/ul Normal 1.4-6.5 [facility] Comment on above: Performed By: #### D ATCBC #### [facility] [address] [address] [address] Yordan Ferguson Neutrophils/100 WBC (Bld) 51.4 % Normal 43.0-75.0 [facility] Comment on above: Performed By: #### D ATCBC #### [facility] [address] [place] [address] Dr. Yordan Ferguson Platelet mean volume (Bld) [Entitic vol] 8.5 fL Critically low 9.5-13.5 [facility] Comment on above: Performed By: #### D ATCBC #### [facility] [address] [place] [address] Dr. Yordan Ferguson PLT 297 103/ul Normal 150-450 [facility] Comment on above: Performed By: #### D ATCBC #### [facility] [address] [place] [address] Dr. Yordan Ferguson RBC 4.18 106/ul Critically low 4.20-5.40 [facility] Comment on above: Performed By: #### D ATCBC #### [facility] [address] [place] [address] Dr. Yordan Ferguson WBC 5.8 103/ul Normal 4.0-11.0 [facility] Comment on above: Performed By: #### D ATCBC #### [facility] [address] [place] [address] Dr. Yordan Ferguson HOLLAND- BMP WITH LIPIDon 2021 Anion gap [Moles/Vol] 11.9 mmol/L Normal [facility] Comment on above: Performed By: #### D ATBMP #### [facility] [address] [place] [address] Dr. Yordan Ferguson Calcium [Mass/Vol] 9.0 mg/dL Normal 8.5-10.1 [facility] Comment on above: Performed By: #### D ATBMP #### [facility] [address] [place] [address] Dr. Yordan Ferguson Chloride [Moles/Vol] 104 mmol/L Normal 98-107 [facility] Comment on above: Performed By: #### D ATBMP #### [facility] [address] [address] [address] Yordan Ferguson Cholesterol [Mass/Vol] 261 mg/dL Critically high <=200 [facility] Comment on above: Performed By: #### D ATBMP #### [facility] [address] [address] [address] Yordan Ferguson Cholesterol in HDL [Mass/Vol] 94 mg/dL Critically high 40-60 [facility] Comment on above: Performed By: #### D ATBMP #### [facility] [address] [address] [address] Yordan Ferguson Cholesterol in LDL [Mass/Vol] 153.2 mg/dL Normal [facility] Comment on above: Performed By: #### D ATBMP #### [facility] [address] [address] [address] Yordan Ferguson CO2 [Moles/Vol] 28.5 mmol/L Normal 21.0-32.0 [facility] Comment on above: Performed By: #### D ATBMP #### [facility] [address] [place] [address] Dr. Yordan Ferguson Creatinine [Mass/Vol] 0.83 mg/dL Normal 0.55-1.02 [facility] Comment on above: Performed By: #### D ATBMP #### [facility] [address] [address] [address] Yordan Ferguson EGFR-AF SOUTH [place]OREAN >60 Normal >=60 [facility] Comment on above: Performed By: #### D ATBMP #### [facility] [address] [address] [address] Yordan Ferguson EGFR-NON AF [place] >60 Normal >=60 [facility] Comment on above: Performed By: #### D ATBMP #### [facility] [address] [address] [address] Yordan Ferguson Glucose [Mass/Vol] 83 mg/dL Normal 74-106 [facility] Comment on above: Performed By: #### D ATBMP #### [facility] [address] [address] [address] Yordan Ferguson HDL NORMAL > or = 60 mg/dl - LO W CARDIOVASCULAR RISK <40 mg/dl - HIGH CARDIOVASCULAR RISK Normal [facility] Comment on above: Performed By: #### D ATBMP #### [facility] [address] [address] [address] Yordan Ferguson LDL CALC NORMAL SEE BELOW Normal [facility] Comment on above: Result Comment: <100 mg/dl OPTIMAL 100 - 129 mg/dl NEAR OR ABOVE OPTIMAL 130 - 159 mg/dl BORDERLINE HIGH 160 - 189 mg/dl HIGH >190 mg/dl VERY HIGH Performed By: #### D ATBMP #### [facility] [address] [address] [address] Yordan Ferguson Potassium [Moles/Vol] 4.4 mmol/L Normal 3.5-5.1 [facility] Comment on above: Performed By: #### D ATBMP #### [facility] [address] [address] [address] Yordan Ferguson Sodium [Moles/Vol] 140 mmol/L Normal 136-145 [facility] Comment on above: Performed By: #### D ATBMP #### [facility] [address] [address] [address] Yordan Ferguson Triglyceride [Mass/Vol] 69 mg/dL Normal <=150 [facility] Comment on above: Performed By: #### D ATBMP #### [facility] [address] [address] [address] Yordan Ferguson Urea nitrogen [Mass/Vol] 18.0 mg/dL Normal 7.0-18.0 [facility] Comment on above: Performed By: #### D ATBMP #### [facility] [address] [address] [address] Yordan Ferguson Urea nitrogen/Creatinine [Mass ratio] 21.7 mg/mg Normal [facility] Comment on above: Performed By: #### D ATBMP #### [facility] [address] [address] [address] Yordan Ferguson VLDL CALC 13.8 mg/dL Normal [facility] Comment on above: Performed By: #### D ATBMP #### [facility] [address] [address] [address] Yordan Ferguson Vital Signs Date Time Vital Sign Value Performing Clinician Facility 11-26-2024 10:09-0400 Body mass index (BMI) [Ratio] 27.1 kg/m2 Amaris PATHAK Work Phone: [facility] 11-26-2024 10:09-0400 Body weight 78.47 kg Amaris PATHAK Work Phone: [facility] 11-26-2024 10:09-0400 Diastolic blood pressure 86 mm[Hg] Amaris PATHAK Work Phone: [facility] 11-26-2024 10:09-0400 Systolic blood pressure 130 mm[Hg] Amaris PATHAK Work Phone: [facility] 08-07-2024 10:30-0400 Body height 170.18 cm [facility] 08-07-2024 10:30-0400 Body mass index (BMI) [Ratio] 26.6 kg/m2 [facility] 08-07-2024 10:30-0400 Body temperature 99 [degF] [facility] 08-07-2024 10:30-0400 Body weight 77.11 kg [facility] 08-07-2024 10:30-0400 Diastolic blood pressure 66 mm[Hg] [facility] 08-07-2024 10:30-0400 Heart rate 68 /min [facility] 08-07-2024 10:30-0400 SaO2% (BldA) [Mass fraction] 97 % [facility] 08-07-2024 10:30-0400 Systolic blood pressure 116 mm[Hg] [facility] 04-29-2024 11:50-0500 Body height 170.18 cm [facility] 04-29-2024 11:50-0500 Body mass index (BMI) [Ratio] 26.9 kg/m2 [facility] 04-29-2024 11:50-0500 Body weight 78.18 kg [facility] 04-29-2024 11:50-0500 Diastolic blood pressure 74 mm[Hg] [facility] 04-29-2024 11:50-0500 Heart rate 70 /min [facility] 04-29-2024 11:50-0500 Respiratory rate 12 /min [facility] 04-29-2024 11:50-0500 Systolic blood pressure 121 mm[Hg] [facility] 12-24-2023 09:06-0400 Body height 170.18 cm [facility] 12-24-2023 09:06-0400 Body mass index (BMI) [Ratio] 25.7 kg/m2 [facility] 12-24-2023 09:06-0400 Body weight 74.61 kg [facility] 12-24-2023 09:06-0400 Diastolic blood pressure 76 mm[Hg] [facility] 12-24-2023 09:06-0400 Heart rate 65 /min [facility] 12-24-2023 09:06-0400 Respiratory rate 12 /min [facility] 12-24-2023 09:06-0400 Systolic blood pressure 130 mm[Hg] [facility] 12-13-2022 08:30-0400 Body height 170.18 cm Ricky Ball Other [employer] [facility] [employer] Other 12-13-2022 08:30-0400 Body mass index (BMI) [Ratio] 25.68 kg/m2 Ricky Ball Other [employer] [facility] [employer] Other 12-13-2022 08:30-0400 Body weight 74.39 kg Ricky Ball Other [employer] [facility] [employer] Other 12-13-2022 08:30-0400 Diastolic blood pressure 71 mm[Hg] Ricky Ball Other [employer] [facility] [employer] Other 12-13-2022 08:30-0400 Respiratory rate 12 /min Ricky Ball Other [employer] Other 12-13-2022 08:30-0400 Systolic blood pressure 108 mm[Hg] Ricky Ball Other [employer] Other 06-16-2022 13:30-0500 Body height 170.18 cm Ricky Ball Other [employer] Other 06-16-2022 13:30-0500 Body mass index (BMI) [Ratio] 25.84 kg/m2 Ricky Ball Other [employer] Other 06-16-2022 13:30-0500 Body weight 74.84 kg Ricky Ball Other [employer] Other 06-16-2022 13:30-0500 Diastolic blood pressure 70 mm[Hg] Ricky Ball Other [employer] Other 06-16-2022 13:30-0500 Respiratory rate 12 /min Ricky Ball Other [employer] Other 06-16-2022 13:30-0500 Systolic blood pressure 118 mm[Hg] Ricky Ball Other [employer] Other 10-13-2021 10:30-0400 Body height 170.18 cm Mary Menard Other [employer] Other 10-13-2021 10:30-0400 Body mass index (BMI) [Ratio] 25.06 kg/m2 Mary Menard Other [employer] Other 10-13-2021 10:30-0400 Body temperature 97.1 [degF] Mary Menard Other [employer] Other 10-13-2021 10:30-0400 Body weight 72.58 kg Mary Menard Other [employer] Other 10-13-2021 10:30-0400 Diastolic blood pressure 80 mm[Hg] Mary Menard Other [employer] Other 10-13-2021 10:30-0400 SaO2% (BldA) [Mass fraction] 97 % Mary Menard Other [employer] Other 10-13-2021 10:30-0400 Systolic blood pressure 110 mm[Hg] Mary Menard Other [employer] Other Encounters Encounter Date Encounter Type Care Provider Facility Start: 12-22-2024 End: 12-22-2024 Clinisync Result Encounter Amaris PATHAK Work Phone: [facility] External Department Unsolicited Start: 12-22-2024 End: 12-22-2024 Clinisync Result Encounter Amaris PATHAK Work Phone: [facility] External Department Unsolicited Start: 12-17-2024 End: 12-17-2024 Bamchantale Thomason MD Work Phone: [facility] Start: 12-17-2024 End: 12-17-2024 Bamboo alcon Thomason MD Work Phone: [facility] Start: 12-17-2024 End: 12-17-2024 Office outpatient visit 15 minutes Iliana Thomason MD Work Phone: [facility] Comment on above: Seborrheic keratosis (Primary Dx); Lentigines; Melanocytic nevi of trunk; History of basal cell carcinoma Start: 12-17-2024 End: 12-17-2024 ambulatory ILIANA THOMASON Not Available Start: 11-26-2024 End: 11-26-2024 Bamboo flowsheet Amaris PATHAK Work Phone: [facility] Start: 11-26-2024 End: 12-01-2024 Bamboo flowsheet Amaris Larry PA Work Phone: [facility] Start: 11-26-2024 End: 12-01-2024 Clinisync Result Encounter Amaris [place] PA Work Phone: [facility] External Department Unsolicited Start: 11-26-2024 End: 11-26-2024 Patient encounter procedure Amaris Larry PA Work Phone: [facility] Start: 11-26-2024 End: 11-26-2024 Periodic preventive med est patient 40-64yrs Amaris PATHAK Work Phone: [facility] Comment on above: Well woman exam with routine gynecological exam; Encounter for screening mammogram for malignant neoplasm of breast; Postmenopausal state Start: 11-26-2024 End: 11-26-2024 ambulatory AMARIS LARRY Not Available Start: 08-07-2024 End: 08-07-2024 ambulatory [facility] Work Phone: Start: 08-07-2024 End: 08-07-2024 Patient encounter procedure [facility] Work Phone: Start: 04-29-2024 End: 04-29-2024 ambulatory [facility] Work Phone: Start: 04-29-2024 End: 04-29-2024 Patient encounter procedure [facility] Work Phone: Start: 01-14-2024 End: 01-14-2024 ambulatory ADRIANA BAIRON Not Available Start: 01-14-2024 End: 01-14-2024 Postop follow up visit related to original px Adriana Bairon DO Work Phone: [facility] Comment on above: Osteopenia, unspecif ied location Start: 12-24-2023 End: 12-24-2023 ambulatory [facility] Work Phone: Start: 12-24-2023 End: 12-24-2023 Encounter for general adult medical examination without abnormal findings [facility] Start: 12-24-2023 End: 12-24-2023 Patient encounter procedure [facility] Work Phone: Start: 12-20-2023 Patient encounter status [facility] Start: 12-20-2023 Non-patient / Non-visit [facility] Work Phone: Start: 11-22-2023 Non-patient / Non-visit [facility] Work Phone: Start: 06-29-2023 End: 06-29-2023 ambulatory [facility] Work Phone: Start: 06-29-2023 End: 06-29-2023 Patient encounter procedure [facility] Work Phone: Start: 05-29-2023 Chart abstracting Iliana starr MD Work Phone: [facility] Start: 05-23-2023 End: 05-23-2023 Patient encounter procedure Iliana Thomason MD Work Phone: [facility] Comment on above: Basal cell carcinoma of skin of left lower limb, including hip (Primary Dx) Start: 04-17-2023 ([facility]) [facility] Sched[facility] Ricky Parmar [facility] Start: 04-17-2023 End: 04-17-2023 ambulatory Ricky Parmar Other [employer] Other Start: 04-17-2023 End: 04-17-2023 Patient encounter procedure [facility] Work Phone: Start: 12-13-2022 End: 12-13-2022 ambulatory Ricky Parmar Other [employer] Other Start: 12-13-2022 Encounter for genera l adult medical examination without abnormal findings Ricky Parmar [facility] Start: 12-13-2022 Periodic preventive med est patient 40-64yrs Ricky Ghulam [facility] Start: 10-10-2022 End: 10-10-2022 ambulatory Ricky Parmar Other [employer] Other Start: 10-10-2022 Telephone encounter Ricky Parmar [facility] Start: 08-09-2022 End: 08-09-2022 ambulatory Ricky Parmar Other [employer] Other Start: 08-09-2022 Office outpatient vi sit 15 minutes Ricky Parmar [facility] Start: 07-14-2022 End: 07-14-2022 ambulatory Ricky Parmar Other [employer] Other Start: 07-14-2022 Telephone encounter Ricky Parmar [facility] Start: 07-13-2022 End: 07-14-[address] RICKY PARMAR Facility:[facility] Start: 06-16-2022 End: 06-16-2022 ambulatory Ricky Parmar Other [employer] Other Start: 06-16-2022 Office outpatient vi sit 15 minutes Ricky Parmar [facility] Start: 06-12-2022 End: 06-13-[address] CHANG LISTED REQUEST Facility:[facility] Start: 06-09-2022 End: 06-10-2022 [...] 10-13-2021 End: 10-13-2021 ambulatory Mary Menard Other [employer] Other Start: 10-13-2021 HC visit new patient Mary ocampo [facility] Start: 09-14-2021 End: 09-15-[address] VERONIKA HORTON Facility:[facility] Start: 09-09-2021 End: 09-10-[address] BERNARDO GUARDADO REQUEST Facility:[facility] Start: 09-02-2021 End: 09-03-[address] RICKY PARMAR Facility:[facility] Procedures Date Procedure Procedure Detail Performing Clinician Start: 12-22-2024 MM TOMOSYNTHESIS SCR EENING BI Amaris PATHAK Work Phone: Start: 11-26-2024 IGP,APTIMA HPV,AGE GDLN Amaris PATHAK Work Phone: Start: 05-23-2023 DESTRUCTION OF LESION E fany Thomason MD Work Phone: Plan of Treatment Date Care Activity Detail Author Start: 12-17-2025 End: 12-17-2025 Patient encounter procedure 12/17/2025 10:30 AM EDT Office Visit [facility] [address] [place] [address] Iliana Thomason MD [address] [place] [address] [facility] Start: 12-01-2025 End: 12-01-2025 Patient encounter procedure 12/01/2025 9:00 AM EDT Procedure Visit RAYSA MENDOZA [address] [address] Amaris Juarez PA [address] [place] [place] [address] [facility] Start: 12-17-2024 End: 12-17-2024 Patient encounter procedure [facility] Comment on above: Arrived Start: [...] [facility] [address] [facility] [address] [place] [address] Iliana Thomason MD [address] [facility] [address] [place] [address] [facility] Start: 11-27-2023 End: 11-27-2023 Patient encounter procedure 11/27/2023 9:20 AM EDT Office Visit [facility] [address] [facility] [address] [place] [address] Iliana Thomason MD [address] [facility] [address] [place] [address] [facility] THIN PREP TIS PAP AN D HR HPV DNA THIN PREP TIS PAP AND HR HPV DNA Pathology and Cytology Routine Well woman exam with routine gynecological exam Ordered: 11/26/2024 [facility] Comment on above: Ordered: 11/26/2024 Payers Date Payer Category Payer Private Health Insurance [id number] 2008 Private Health Insurance [id number] 1960 Unknown [id number] 1960 Unknown [id number] 1962 Unknown [id number] 1962 Unknown [id number] 2.16.840.1.979415.3.579.2.593 1960 Unknown [id number] 2.16.840.1.008281.3.579.2.593 1962 Unknown [id number] 2.16.840.1.496262.3.579.2.593 1962 Unknown [id number] 2.16.840.1.796657.3.579.2.593 1962 Unknown [id number] 2.16.840.1.478701.3.579.2.593 1962 Unknown [id number] 2.16.840.1.100133.3.579.2.593 1962 Unknown [id number] 2.16.840.1.883498.3.579.2.593 1962 Unknown [id number] 2.16.840.1.750425.3.579.2.125 9 1962 Unknown [id number] 2.16.840.1.593325.3.579.2.125 9 1962 Unknown [id number] 2.16.840.1.335359.3.579.2.125 9 1959 Self-pay 1959 Unknown [id number] Private Health Insurance [id number] 2.16.840.1.180933.19 Private Health Insurance [facility] [id number] Unknown [id number] 2.16.840.1.943146.3.579.2.593 Unknown [id number] 2.16.840.1.935404.3.579.2.593 Unknown [id number] 2.16.840.1.959391.3.579.2.593 Unknown [id number] 2.16.840.1.464001.3.579.2.593 Social History Date Type Detail Facility Start: 05-23-2023 End: 12-17-[address] [facility] [email or web address] Other Start: 04-06-2023 Tobacco smoking status ARIS Never smoked tobacco [facility] Start: 04-06-2023 End: 05-29-2023 Tobacco use and exposure Smokeless tobacco non-user [facility] Start: 05-23-2023 End: 12-17-2024 History of Social function [facility] Start: 1960 Sex Assigned At Not on file [facility] Start: 05-29-2023 End: 06-29-2023 Tobacco smoking status [facility] Ex-smoker [facility] History of tobacco use Current smoker [facility] History of tobacco use Cigarette Smoker [facility] Start: 1960 Sex Assigned At Female F [facility] Start: 04-29-2024 End: 08-07-2024 Sex Female (finding) [facility] Clinical Notes 09-02-2021 to 12-17-2024 Iliana [...] Examined Right arm Examined Patient wearing nail citizen of [place], Denies dark streaks on toenails Left arm [...] Visit: 1 year documented in this encounter [facility] 11-26-2024 History of Presen t illness Narrative Reason for Appointment: Patient ID: Fiordaliza Lopez is a 64 y.o. female who presents for [facility] Women Visit Patient presents today for Annual [...] nursing note reviewed. Exam conducted with a environmental protection geologist present. Vitals: Estimated body mass index is [...] of: [place] documented in this encounter [facility] 01-14-2024 History of Presen t illness Narrative Reason for Appointment: Patient ID: Fiordaliza Lopez is a 63 y.o. female who presents for No chief complaint on file. Patient presents today via telephone call for a telehealth appointment. Patients Phone #: [phone] (mobile) Current Medications: has a current medication [...] Adriana Waddell DO documented in this encounter [facility] 05-23-2023 History of Presen t [...] left lower limb, including hip Left Thigh [place] papule at biopsy site Destr of lesion Complexity: simple Destruction method: electrodesiccation and curettage Informed consent: discussed and consent obtained Informed consent comment: The risks of the procedure were discussed, including, but not limited to risks of scarring, darker or echometer engineer pigmentary changes, recurrence, infection, and incomplete [...] lidocaine used: 1.0 cc Previous accession number: [id number] ED&C today, see procedure note. Return to clinic prior to next scheduled visit for any signs or symptoms of recurrence, reviewed the signs and symptoms. Next Visit: 6 months FBSE documented in this encounter [facility] 04-17-2023 Evaluation note Encounter Date Diagnosis Assessment Notes Apr, Acute bronchitis due to other specified organisms (ICD-10 - J20.8) Instructed to use Robitussin or Mucinex for cough, saline or Flonase NS for congestion, Tylenol for pain and fever. Apr, Cigarette nicotine dependence in remission (ICD-10 - F17.211) May increase risk for prolonged illness [employer] Other 08-30-2023 Evaluation note* Encounter Date Diagnosis Assessment Notes Treatment Notes Treatment Clinical Notes Nov, Wellness examination (ICD-10 - Z00.00) Healthy diet and exercise. Reviewed age-appropriate preventive testing recommended. Nov, Atherosclerosis of [place] artery of both lower extremities with intermittent [...] Instructed on monthly SBE and yearly Mammogram [employer] Other 04-26-2023 Evaluation note* Encounter Date Diagnosis Assessment Notes Treatment Notes Treatment Clinical Notes Jul, Acute non-recurrent maxillary sinusitis (ICD-10 - J01.00) Instructed to use Robitussin or Mucinex for cough, saline or Flonase NS for congestion, Tylenol for pain and fever. Jul, Suspected COVID-19 virus infection (ICD-10 - Z20.822) Encouraged to test and notify office if positive results [employer] Other 03-03-2023 Evaluation note* Encounter Date Diagnosis [...] - R04.0) Saline NS daily. Avoid NSAIDs [employer] Other 09-16-2022 NotePROCEDURE: XR ANKLE RT MIN 3 VIEWS COMPARISON: None. HISTORY: Pain of right ankle joint FINDINGS: BONES:No fracture, acute abnormality, or significant arthropathy. SOFT TISSUES:Negative. No visible soft tissue swelling. EFFUSION:None visible. OTHER: Negative. IMPRESSION: No acute abnormality Electronically authenticated by: VERONIKA HORTON Date: 2021-12-30 16:32[facility]07-13-2022 NotePROCEDURE: XR FOOT RT MIN 3 VIEWS COMPARISON: 09/14/2021 HISTORY: Pain in right foot FINDINGS: BONES:No fracture, acute abnormality, or significant arthropathy. SOFT TISSUES:Negative. No visible soft tissue swelling. EFFUSION:None visible. OTHER: Negative. 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 [employer] Other 06-01-2022 NotePROCEDURE: XR FOOT RT MIN 3 VIEWS COMPARISON: 09/02/2021 HISTORY: Pain in right foot FINDINGS: BONES:No fracture, acute abnormality, or significant arthropathy. SOFT TISSUES:Negative. No visible soft tissue swelling. EFFUSION:None visible. OTHER: Negative. IMPRESSION: No acute disease. Electronically authenticated by: VERONIKA HORTON Date: 2021-09-14 11:59[facility] [id number] NotePROCEDURE: XR FOOT RT MIN 3 VIEWS [...] authenticated by: DORIE OROZCO Date: 2021-09-02 09:15[facility] noteNo InformationNortWellSpan Health [facility] Other Evaluation note* Diagnosis Basal cell carcinoma of skin of left lower limb, including hip- Primary documented in this encounter [facility] HealthcareEvaluation noteNo assessment information availableOhio[facility] Work Phone: Evaluation note* Diagnosis Onset Date Resolution Status [id number] acute Chronic venous insufficiency of lower extremity acute Cigarette nicotine dependence in remission acute Elevated cholesterol acute Hypothyroid acute Screening mammogram for breast cancer acute Wellness examination acute [facility] Work Phone: Evaluation note* Diagnosis Osteopenia, unspecified location documented in this encounter [facility] HealthcareEvaluation note* Diagnosis Onset Date Resolution Status Admit Date Maxillary sinusitis acute August 07, 2024 10:25am [facility] Work Phone: Evaluation note* Diagnosis Well woman exam with routine gynecological exam Routine gynecological examination Encounter for screening mammogram for malignant neoplasm of breast Postmenopausal state Asymptomatic postmenopausal status (age-related) (natural) documented in this encounter [facility] HealthcareEvaluation note* Diagnosis Seborrheic keratosis- Primary Lentigines Melanocytic nevi of trunk History of basal cell carcinoma Personal history of other malignant neoplasm of skin [facility] N[facility] - Reported* Type Description Date Medical History HPV Medical History PAD Surgical History T&A Surgical History Right Shoulder, bone spur Surgical History Cervix, HPV Hospitalization History See past surgical hx 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, bilateral legs Medical History Chronic venous insufficiency Surgical History TONSILLECTOMY AND ADENOIDECTOMY 03/2010 Surgical History Right Shoulder, bone spur Surgical History Cervix, HPV Surgical History EGD WITH BALLOON DILATION, ESOP HAGUS Surgical History BENIGN LEFT BREAST BIOPSY Surgical History LEEP PROCEDURE 09/2008 Hospitalization History See past surgical hx [employer] Other History general Narrative - Reported* Type [...] pharyngoesophageal Medical History 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, bilateral legs Medical History Chronic venous insufficiency Surgical History TONSILLECTOMY AND ADENOIDECTOMY 03/2010 Surgical History Right Shoulder, bone spur Surgical History Cervix, HPV Surgical History EGD WITH BALLOON DILATION, ESOP HAGUS Surgical History BENIGN LEFT BREAST BIOPSY Surgical History LEEP PROCEDURE 09/2008 Surgical History Colonoscopy 07/2020 Hospitalization History See past surgical hx [employer] Other Summary Purpose Family History Relationship Condition [...] Visit Chief Complaint Sinus Infection-Test ing For [id number] sinus infection Chief Complaint Wellness Reason for Visit [id number] Chronic venous insufficiency of lower extremity Cigarette [...] [facility] p[facility] DATE CREATED AUTHOR AUTHOR'S MOOK ATION 12/18/2024 [facility] Care Teams (unrecognized sec tion and [...] June 29, 2023 End: June 29, 2023 Skip Tracer Relationship Specialty Start Date End Date Ricky Parmar MD [address] [place] [address] PCP - General Internal Medicine 11/22/23 Team Status: Inactive Member Role Status Dates Ricky Parmar DO Primary Care Provider Active Start: August 07, 2024 End: August 07, 2024 Samara Estevez APRN [employer] Attending Provider Act alfred Start: August 07, 2024 End: August 07, 2024 Skip Tracer Relationship Specialty Start Date End Date Ricky Parmar DO [address] [place] [address] PCP - General Internal Medicine 11/22/23 Skip Tracer Relationship Specialty Start Date End Date Ricky Parmar DO [address] [place] [id number] PCP - General Internal Medicine 11/22/23 Skip Tracer Relationship Specialty Start Date End Date Ricky Parmar DO [address] [place] [id number] PCP - General Internal Medicine 11/22/23 Goals [...] BE BASED ON THE PRIMARY CLINICAL RECORDS. [facility]. provides no warranty or guarantee of the accuracy or completeness of information in this document.
--- OUTSIDE RECORDS SUMMARY | 2025-01-29 08:09 | XMS_ITS | CCD ---
Author Organization [facility] Care Team Providers Care Human Resources Officer Name Role Phone Mary Menard Unavailable Ricky [...] Unavailable GHULAM, DR BOUCHER Primary Care Unavailable MULBERRY, DR VERONIKA Morataya Consulting Unavailable GHULAM, DR BOUCHER Primary Care Unavailable NATA HENRY Attending Unavailable NATA HENRY Admitting Unavailable ELAINE, NATA Siegel Consulting Unavailable Unavailable Primary Care Provider Unavailaneglo Parmar MD, Ricky Bell Primary Care Provider Ricky Parmar DO Primary Care Provider AMARIS JUAREZ Attending Unavailable ILIANA THOMASON Attending Unavailable ADRIANA WADDELL Attending Unavailable Allergies Allergy Classification Reported Allergen(s) Allergy Type Date of Onset Reaction(s) Facility (9 sources) Pollen Drug allergy 4 Unknown [facility] Work Phone: (6 sources) Insect Stings Propensity to adverse reactions 4 Unknown, Unknown Reaction [facility] (4 sources) Pollen Allergy to substance 4 Unknown Reaction [facility] Medications Current Medications Medication Drug Class(es) [...] visceral atherosclerosis (20 sources) 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 Patient Name: FIORDALIZA LOPEZ MR#: [id number] : 1960 Exam Date: 12/22/2024 Ordering Doctor: [...] Treatments None Family Cancers None LOCATION: The [facility] BREAST COMPOSITION: The breasts are heterogeneously [...] Signed By: 12/22/24 1237 DD/ 1236 TD/TT: Linoleum Mechanic: [facility] Radiology, Radiologist, MD - 12/22/2024 [place] [address] Mammography Report Signed Patient: FIORDALIZA LOPEZ MR#: [id number] : 1960 Acct:[id number] Age/Sex: 64 / F ADM Date: 12/22/24 Loc: MAMMO Attending Dr: Amaris Juarez Ordering Physician: Amaris Juarez Results: Date of Service: 12/22/24 Follow Up: Procedure(s): MM tomosynthesis screening BI Accession Number(s): [id number] cc: Amaris Juarez; Physician,Non-Staff M.DPrashanth Patient Name: FIORDALIZA LOPEZ MR#: [id number] : 1960 Exam Date: 12/22/2024 Ordering Doctor: [...] Treatments None Family Cancers None LOCATION: The [facility] BREAST COMPOSITION: The breasts are heterogeneously [...] Signed By: 12/22/24 1237 DD/ 1236 TD/TT: Linoleum Mechanic: [facility] Radiology Study observation (narrative) [facility] MM TOMOSYNTHESIS SCREENING B IOrdered By: Radiologist Radiology on 12-22-2024 [facility] Work Phone: IGP,APTIMA HPV,AGE GDLNon AGE GDLN ACOG TESTING Note . [facility] Comment on above: TESTS RESULT FLAG UN ITS REF RANGE LAB Clinician Provided Cytology Information Source.............Cervix;Endocervix No. of containers..01 ThinPrep Vial Age Algo ACOG Jazmine... 30-65 01 FLAG LEGEND: L-Low Normal,H-High Normal,LL-Alert Low,HH-Alert High <-Panic Low,>-Panic High,A-Abnormal,AA-Critical Abnormal Performed at: 01 =G [address] [address] Desi Harris MD, HPV APTIMA Negative Negative [facility] Comment on above: This nucleic acid am plification test detects fourteen high- risk HPV types (16,18,31,33,35,39,45,51,52,56,58,59,66,68) without differentiation. Performed at: =G - [facility] [address], [place] [id number] [employer]oth Bleaching Supervisor: Desi Harris MD, Phone: [phone] Performed at: WB - [facility] [address], [place] [id number] [employer] Supervisor: Desi Harris MD, Phone: [phone] IGP, APTIMA HPV, RFX 16/18,45 Note . [facility] Comment on above: TESTS RESULT FLAG UN ITS REF RANGE LAB DIAGNOSIS: 02 NEGATIVE FOR INTRAEPITHELIAL LESION OR MALIGNANCY. CELLULAR CHANGES ASSOCIATED WITH ATROPHY ARE PRESENT. THIS SPECIMEN WAS RESCREENED PART OF OUR BUDGET TECHNICIAN PROGRAM. Specimen adequacy: 02 Satisfactory for evaluation. Endocervical component may not be distinguished in cases of atrophy. Performed by: 02 Kristie Cohen, Measurement Coordinator (ASCP) QC reviewed by: 02 Sravanthi Higginbotham, Supervisory Measurement Coordinator (ASCP) . 02 Note: Note 02 The [...] Low,>-Panic High,A-Abnormal,AA-Critical Abnormal Performed at: [address] [address] Desi Harris MD, BRUSH-SPATULA CERVIX ENDOCERVIX [facility] Basophils Auto (Bld) [#/Vol] on 12-20-2023 Basophils (Bld) [#/Vol] 0.1 10 3/uL 0.0-0.1 [facility] Basophils/100 WBC Auto (Bld) on 12-20-2023 Basophils/100 WBC (Bld) 1.0 % 0.2-2.0 [facility] Cholesterol in LDL Calc [Mas s/Vol]on 12-20-2023 Cholesterol in LDL [Mass/Vol] 149.0 mg/dL [facility] Comment on above: <100 mg/dl [id number] 0-129 mg/dl NEAR OR ABOVE [id number] mg/dl BORDERLINE [id number] mg/dl HIGH>190 mg/dl VERY HIGH Cholesterol in VLDL Calc [Ma ss/Vol]on 12-20-2023 Cholesterol in VLDL [Mass/Vol] 22.6 mg/dL [facility] Eosinophils/100 WBC Auto (Bl d)on 12-20-2023 Eosinophils/100 WBC (Bld) 3.0 % 0.9-7.0 [facility] Erythrocyte distribution wid th Auto (RBC) [Ratio]on 12-20-2023 Erythrocyte distribution width (RBC) [Ratio] 13.3 % 11.0-15.0 [facility] Estimated glomerular filtrat ion rate (GFR) non- Americanon 12-20-2023 GFR/1.73 sq M.predicted among non-blacks MDRD (S/P/Bld) [Vol rate/Area] mL/min/{1.73_m2} >=60 [facility] Globulin Calc (S) [Mass/Vol] on 12-20-2023 Globulin (S) [Mass/Vol] 3.8 g/dL [facility] Hematocrit Auto (Bld) [Volum e fraction]on 12-20-2023 Hematocrit (Bld) [Volume fraction] 39.5 % 36.0-48.0 [facility] Hemoglobin [Mass/volume] in Bloodon 12-20-2023 Hemoglobin (Bld) [Mass/Vol] 13.2 g/dL 12.0-16.0 [facility] Laboratory - Chemistry and C hemistry - challengeon 12-20-2023 Albumin [Mass/Vol] 3.7 g/dL 3.4-5.0 [facility] ALP [Catalytic activity/Vol] 92 U/L 46-116 [facility] ALT [Catalytic activity/Vol] 32 U/L 14-59 [facility] AST [Catalytic activity/Vol] 22 U/L 15-37 [facility] Bilirubin [Mass/Vol] 0.3 mg/dL 0.2-1.0 [facility] Calcium [Mass/Vol] 9.3 mg/dL 8.5-10.1 [facility] Chloride [Moles/Vol] 102 mmol/L 98-107 [facility] Cholesterol [Mass/Vol] 261 mg/dL High <=200 [facility] Cholesterol in HDL [Mass/Vol] 90 mg/dL High 40-60 [facility] Comment on above: > or =60 mg/dl - LOW CARDIOVASCULAR RISK<40 mg/dl - HIGH CARDIOVASCULAR RISK CO2 [Moles/Vol] 29.3 mmol/L 21.0-32.0 [facility] Creatinine [Mass/Vol] 0.70 mg/dL 0.55-1.02 [facility] GFR/1.73 sq M.predicted MDRD (S/P/Bld) [Vol rate/Area] mL/min/{1.73_m2} >=60 [facility] Glucose [Mass/Vol] 73 mg/dL Low 74-106 [facility] Potassium [Moles/Vol] 4.0 mmol/L 3.5-5.1 [facility] Protein [Mass/Vol] 7.5 g/dL 6.4-8.2 [facility] Sodium [Moles/Vol] 137 mmol/L 136-145 [facility] Triglyceride [Mass/Vol] 113 mg/dL <=150 [facility] TSH Qn 0.020 m[IU]/L Low 0.358-3.740 [facility] Urea nitrogen [Mass/Vol] 14.0 mg/dL 7.0-18.0 [facility] Urea nitrogen/Creatinine [Mass ratio] 20.0 mg/mg [facility] Laboratory - Hematology and Cell countson 12-20-2023 Immature granulocytes/100 WBC (Bld) 0.1 % 0.0-0.5 [facility] Leukocytes [#/volume] correc trevor for nucleated erythrocytes in Blood by Automated counon 12-20-2023 WBC corrected for nucl RBC Auto (Bld) [#/Vol] 6.9 10 3/uL 4.0-11.0 [facility] Lymphocytes Auto (Bld) [#/Vo l]on 12-20-2023 Lymphocytes (Bld) [#/Vol] 2.1 10 3/uL 1.2-3.8 [facility] Lymphocytes/100 WBC Auto (Bl d)on 12-20-2023 Lymphocytes/100 WBC (Bld) 30.7 % 20.5-60.0 [facility] MCH Auto (RBC) [Entitic mass ]on 12-20-2023 MCH (RBC) [Entitic mass] 30.2 pg 26.7-34.0 [facility] MCHC Auto (RBC) [Mass/Vol]on 12-20-2023 MCHC (RBC) [Mass/Vol] 33.4 g/dL 29.9-35.2 [facility] MCV Auto (RBC) [Entitic vol] on 12-20-2023 MCV (RBC) [Entitic vol] 90.4 fL 81.0-99.0 [facility] Monocytes Auto (Bld) [#/Vol] on 12-20-2023 Monocytes (Bld) [#/Vol] 0.6 10 3/uL 0.3-0.8 [facility] Monocytes/100 WBC Auto (Bld) on 12-20-2023 Monocytes/100 WBC (Bld) 8.4 % 1.7-12.0 [facility] Neutrophils Auto (Bld) [#/Vo l]on 12-20-2023 Neutrophils (Bld) [#/Vol] 3.9 10 3/uL 1.4-6.5 [facility] Neutrophils/100 WBC Auto (Bl d)on 12-20-2023 Neutrophils/100 WBC (Bld) 56.8 % 43.0-75.0 [facility] No Panel Informationon 12-19 Eosinophils # (Auto) 0.2 10 3/uL 0.0-0.7 [facility] Immature Granulocyte # (Auto) 0.01 10 3/uL 0.00-0.03 [facility] Platelet mean volume Auto (B ld) [Entitic vol]on 12-20-2023 Platelet mean volume (Bld) [Entitic vol] 9.0 fL Low 9.5-13.5 [facility] Platelets Auto (Bld) [#/Vol] on 12-20-2023 Platelets (Bld) [#/Vol] 317 10 3/uL 150-450 [facility] RBC Auto (Bld) [#/Vol]on RBC (Bld) [#/Vol] 4.37 10 6/uL 4.20-5.40 [facility] Serum or plasma albumin/glob ulin mass ratioon 12-20-2023 Albumin/Globulin [Mass ratio] 1.0 {ratio} [facility] Serum or plasma anion gap de terminationon 12-20-2023 Anion gap [Moles/Vol] 9.7 mmol/L [facility] Serum or plasma total choles terol/high density lipoprotein (HDL) cholesterol mass jose 12-20-2023 Cholesterol.total/Ch olesterol in HDL [Mass ratio] 2.9 {ratio} [facility] Comment on above: 3.3 - 4.4 LOW RISK4. 4 - 7.1 AVERAGE RISK7.1 - 11.0 MODERATE RISK>11.0 HIGH RISK Human papilloma virus 16+18+ 31+33+35+39+45+51+52+56+58+59+66+68 DNA [Presence] in Josefina 11-22-2023 HPV 16+18+31+33+35+39+45 +51+52+56+58+59+66+6 8 DNA Probe+sig amp Ql (Cvx) Negative Negative [facility] Comment on above: This nucleic acid am plification test detects fourteen high- risk HPV types (16,18,31,33,35,39,45,51,52,56,58,59,66,68)without differentiation.Performed at: =G - [facility] [address], [place] [id number] Director: Desi Harris MD, Phone: [phone] at: WB - [facility] [address], [place] [id number] Director: Desi Harris MD, Phone: [phone] No Panel Informationon 11-21 HPV High Risk Other Comment Note . [facility] Comment on above: TESTS RESULT FLAG UN ITS REF RANGE LAB DI AGNOSIS: 02 NEGATIVE FOR INTRAEPITHELIAL LESION OR MALIGNANCY. CELLULAR CHANGES ASSOCIATED WITH ATROPHY ARE PRESENT.Specimen adequacy: 02 Satisfactory for evaluation. Endocervical component may not be distinguished in cases of atrophy.Performed by: Ashley Folres, Teacher Physically Impaired (ASCP). 02Note: Note 02 The Pap smear [...] Low,>-Panic High,A-Abnormal,AA-Critical Abnormal ---Performed at:02 WB [facility] [address] [facility] [address] Desi Harris MD, Reference Lab Test Patient Age Note . [facility] Comment on above: TESTS RESULT FLAG UN ITS REF RANGE LAB Clinician Provided Cytology Information Source.............Cervix;Endocervix No. of containers..01 ThinPrep VialAge Algo FABYOG Jazmine... 30-65 01 FLAG LEGEND: L-Low Normal,H-High Normal,LL-Alert Low,HH-Alert High <-Panic Low,>-Panic High,A-Abnormal,AA-Critical Abnormal ---Performed at:01 =G [facility] [address] [place] [address] Desi Harris MD, [facility] 05-23-2023 Complexity: simple Destruction method: electrodesiccation and curettage Informed consent: discussed and consent obtained Informed consent comment: The risks of the procedure were discussed, including, but not limited to risks of scarring, darker or pattern generator operator pigmentary changes, recurrence, infection, and incomplete removal [...] lidocaine used: 1.0 cc Previous accession number: [id number] [facility] [place] - TSHon 07-13-2022 TSH 0.013 uIU/mL Critically low 0.358-3.740 [facility] Comment on above: Performed By: #### D ATTSH #### [facility] [address] [place] [address] Dr. Yordan Ferguson TSH RANGE SEE BELOW Normal [facility] Comment on above: Result Comment: <0.3 4 UIU/ml HYPERTHYROID 0.34-5.60 UIU/ml EUTHYROID >5.60 UIU/ml HYPOTHYROID Performed By: #### D ATTSH #### [facility] [address] [place] [address] Dr. Yordan Ferguson [place] - TSHon 06-12-2022 TSH 0.020 uIU/mL Critically low 0.358-3.740 [facility] Comment on above: Performed By: #### D ATTSH #### [facility] [address] [place] [address] Dr. Yordan Ferguson TSH RANGE SEE BELOW Normal [facility] Comment on above: Result Comment: <0.3 4 UIU/ml HYPERTHYROID 0.34-5.60 UIU/ml EUTHYROID >5.60 UIU/ml HYPOTHYROID Performed By: #### D ATTSH #### [facility] [address] [address] [address] Yordan Ferguson MG MAMM SCREEN 3D NORMA CADon 06-09-2022 MG MAMM SCREEN 3D NORMA CAD Patient: FIORDALIZA LOPEZ Exam Date: 06/09/2022 : 1960 Gender:F Ordering : DR RICKY PARMAR D.O. Admission #: [id number] Family : Order #: [id number] CLICK HERE TO VIEW EXAM RADIOLOGY REPORT [...] Treatments None Family Cancers None LOCATION: The [facility] BREAST COMPOSITION: Heterogeneously dense,which may obscure [...] MD on 06/09/2022 at 10:28 Normal [facility] TSHon 03-20-2022 TSH 0.072 uIU/mL Critically low 0.358-3.740 [facility] Comment on above: Performed By: #### T SH #### [facility] [address] [address] [address] Yordan Ferguson TSHon 02-01-2022 TSH 42.462 uIU/mL Critically high 0.358-3.740 [facility] Comment on above: Performed By: #### T SH #### [facility] [address] [address] [address] Yordan Ferguson MRI ANKLE RT WO [...] VERONIKA BANERJEE Date: 2022-01-07 22:45 Normal [facility] T3, TOTAL (TRIIODOTHYRONINE) on 12-15-2021 T3, TOTAL 75 ng/dL Normal 71-180 [facility] Comment on above: Performed By: #### T 3TOTAL #### [facility] [address] [place] [address] [address] [address] Yordan Ferguson THYROID PEROXIDASE ABon 09-0 Thyroid Peroxidase (TPO) Ab 244 IU/mL Critically high 0-34 [facility] Comment on above: Performed By: #### T POAB #### [facility] [address] [place] [address] Dr. Yordan Ferguson US THYROIDon 12-14-2021 US [...] by: DORIE OROZCO Date: 2021-12-14 07:04 Normal [facility] FREE T4on 12-13-2021 Free T4 [Mass/Vol] 0.43 ng/dL Critically low 0.76-1.46 [facility] Comment on above: Performed By: #### D ATTSH #### [facility] [address] [place] [address] Dr. Yordan Ferguson TSHon 12-13-2021 TSH 65.911 uIU/mL Critically high 0.358-3.740 [facility] Comment on above: Performed By: #### T SH #### [facility] [address] [place] [address] Dr. Yordan Ferguson [facility] CBC AUTO DIFFon 12-01-2021 BASO # 0.1 103/ul Normal 0.0-0.1 [facility] Comment on above: Performed By: #### D ATTSH #### [facility] [address] [place] [address] Dr. Yordan Ferguson Basophils/100 WBC (Bld) 1.1 % Normal 0.2-2.0 [facility] Comment on above: Performed By: #### D ATTSH #### [facility] [address] [place] [address] Dr. Yordan Ferguson EO # 0.4 103/ul Normal 0.0-0.7 [facility] Comment on above: Performed By: #### D ATTSH #### [facility] [address] [place] [address] Dr. Yordan Ferguson Eosinophils/100 WBC (Bld) 6.5 % Normal 0.9-7.0 [facility] Comment on above: Performed By: #### D ATTSH #### [facility] [address] [place] [address] Dr. Yordan Ferguson Erythrocyte distribution width (RBC) [Ratio] 13.6 % Normal 11.0-15.0 [facility] Comment on above: Performed By: #### D ATTSH #### [facility] [address] [place] [address] Dr. Yordan Ferguson Hematocrit (Bld) [Volume fraction] 40.6 % Normal 36.0-48.0 [facility] Comment on above: Performed By: #### D ATTSH #### [facility] [address] [place] [address] Dr. Yordan Ferguson Hemoglobin (Bld) [Mass/Vol] 13.4 g/dL Normal 12.0-16.0 [facility] Comment on above: Performed By: #### D ATTSH #### [facility] [address] [place] [address] Dr. Yordan Ferguson IG # 0.01 10e3/ul Normal 0.00-0.03 [facility] Comment on above: Performed By: #### D ATTSH #### [facility] [address] [place] [address] Dr. Yordan Ferguson IG % 0.2 % Normal 0.0-0.5 [facility] Comment on above: Performed By: #### D ATTSH #### [facility] [address] [place] [address] Dr. Yordan Ferguson LYMPH # 2.1 103/ul Normal 1.2-3.8 [facility] Comment on above: Performed By: #### D ATTSH #### [facility] [address] [place] [address] Dr. Yordan Ferguson Lymphocytes/100 WBC (Bld) 31.7 % Normal 20.5-60.0 [facility] Comment on above: Performed By: #### D ATTSH #### [facility] [address] [address] [address] Yordan Ferguson MCH (RBC) [Entitic mass] 31.6 pg Normal 26.7-34.0 [facility] Comment on above: Performed By: #### D ATTSH #### [facility] [address] [place] [address] Dr. Yordan Ferguson MCHC (RBC) [Mass/Vol] 33.0 g/dL Normal 29.9-35.2 [facility] Comment on above: Performed By: #### D ATTSH #### [facility] [address] [place] [address] Dr. Yordan Ferguson MCV (RBC) [Entitic vol] 95.8 fL Normal 81.0-99.0 [facility] Comment on above: Performed By: #### D ATTSH #### [facility] [address] [place] [address] Dr. Yordan Ferguson MONO # 0.6 103/ul Normal 0.3-0.8 [facility] Comment on above: Performed By: #### D ATTSH #### [facility] [address] [place] [address] Dr. Yordan Ferguson Monocytes/100 WBC (Bld) 8.6 % Normal 1.7-12.0 [facility] Comment on above: Performed By: #### D ATTSH #### [facility] [address] [place] [address] Dr. Yordan Ferguson NEUT # 3.4 103/ul Normal 1.4-6.5 [facility] Comment on above: Performed By: #### D ATTSH #### [facility] [address] [place] [address] Dr. Yordan Ferguson Neutrophils/100 WBC (Bld) 51.9 % Normal 43.0-75.0 [facility] Comment on above: Performed By: #### D ATTSH #### [facility] [address] [place] [address] Dr. Yordan Ferguson Platelet mean volume (Bld) [Entitic vol] 9.0 fL Critically low 9.5-13.5 [facility] Comment on above: Performed By: #### D ATTSH #### [facility] [address] [place] [address] Dr. Yordan Ferguson PLT 307 103/ul Normal 150-450 [facility] Comment on above: Performed By: #### D ATTSH #### [facility] [address] [place] [address] Dr. Yordan Ferguson RBC 4.24 106/ul Normal 4.20-5.40 [facility] Comment on above: Performed By: #### D ATTSH #### [facility] [address] [place] [address] Dr. Yordan Ferguson WBC 6.5 103/ul Normal 4.0-11.0 [facility] Comment on above: Performed By: #### D ATTSH #### [facility] [address] [place] [address] Dr. Yordan Ferguson [facility] PROFILEon 022 Albumin [Mass/Vol] 4.4 g/dL Normal 3.4-5.0 [facility] Comment on above: Performed By: #### H FPF #### [facility] [address] [place] [address] Dr. Yordan Ferguson Albumin/Globulin [Mass ratio] 1.2 {ratio} Normal [facility] Comment on above: Performed By: #### H FPF #### [facility] [address] [place] [address] Dr. Yordan Ferguson ALP [Catalytic activity/Vol] 75 U/L Normal 46-116 [facility] Comment on above: Performed By: #### H FPF #### [facility] [address] [place] [address] Dr. Yordan Ferguson ALT [Catalytic activity/Vol] 33 U/L Normal 14-59 [facility] Comment on above: Performed By: #### H FPF #### [facility] [address] [place] [address] Dr. Yordan Ferguson AST [Catalytic activity/Vol] 29 U/L Normal 15-37 [facility] Comment on above: Performed By: #### H FPF #### [facility] [address] [address] [address] Yordan Ferguson Bilirubin [Mass/Vol] 0.3 mg/dL Normal 0.2-1.0 [facility] Comment on above: Performed By: #### H FPF #### [facility] [address] [address] [address] Yordan Ferguson Calcium [Mass/Vol] 9.3 mg/dL Normal 8.5-10.1 [facility] Comment on above: Performed By: #### H FPF #### [facility] [address] [address] [address] Yordan Ferguson Chloride [Moles/Vol] 103 mmol/L Normal 98-107 [facility] Comment on above: Performed By: #### H FPF #### [facility] [address] [place] [address] Dr. Yordan Ferguson CHOL-HDL RATIO NORM SEE BELOW Normal [facility] Comment on above: Result Comment: 3.3 - 4.4 LOW RISK 4.4 - 7.1 AVERAGE RISK 7.1 - 11.0 MODERATE RISK >11.0 HIGH RISK Performed By: #### H FPF #### [facility] [address] [place] [address] Dr. Yordan Ferguson Cholesterol [Mass/Vol] 214 mg/dL Critically high <=200 [facility] Comment on above: Performed By: #### H FPF #### [facility] [address] [address] [address] Yordan Ferguson Cholesterol in HDL [Mass/Vol] 87 mg/dL Critically high 40-60 [facility] Comment on above: Performed By: #### H FPF #### [facility] [address] [place] [address] Dr. Yordan Ferguson Cholesterol in LDL [Mass/Vol] 111.2 mg/dL Normal [facility] Comment on above: Performed By: #### H FPF #### [facility] [address] [address] [address] Yordan Ferguson Cholesterol.total/Ch olesterol in HDL [Mass ratio] 2.5 {ratio} Normal [facility] Comment on above: Performed By: #### H FPF #### [facility] [address] [place] [address] Dr. Yordan Ferguson CO2 [Moles/Vol] 28.0 mmol/L Normal 21.0-32.0 [facility] Comment on above: Performed By: #### H FPF #### [facility] [address] [address] [address] Yordan Ferguson Creatinine [Mass/Vol] 0.83 mg/dL Normal 0.55-1.02 [facility] Comment on above: Performed By: #### H FPF #### [facility] [address] [place] [address] Dr. Yordan Ferguson Globulin (S) [Mass/Vol] 3.6 g/dL Normal [facility] Comment on above: Performed By: #### H FPF #### [facility] [address] [address] [address] Yordan Ferguson Glucose [Mass/Vol] 86 mg/dL Normal 74-106 [facility] Comment on above: Performed By: #### H FPF #### [facility] [address] [place] [address] Dr. Yordan Ferguson HDL NORMAL > or = 60 mg/dl - LO W CARDIOVASCULAR RISK <40 mg/dl - HIGH CARDIOVASCULAR RISK Normal [facility] Comment on above: Performed By: #### H FPF #### [facility] [address] [address] [address] Yordan Ferguson LDL CALC NORMAL SEE BELOW Normal [facility] Comment on above: Result Comment: <100 mg/dl OPTIMAL 100 - 129 mg/dl NEAR OR ABOVE OPTIMAL 130 - 159 mg/dl BORDERLINE HIGH 160 - 189 mg/dl HIGH >190 mg/dl VERY HIGH Performed By: #### H FPF #### [facility] [address] [place] [address] Dr. Yordan Ferguson Potassium [Moles/Vol] 4.4 mmol/L Normal 3.5-5.1 [facility] Comment on above: Performed By: #### H FPF #### [facility] [address] [address] [address] Yordan Ferguson Protein [Mass/Vol] 8.0 g/dL Normal 6.4-8.2 [facility] Comment on above: Performed By: #### H FPF #### [facility] [address] [place] [address] Dr. Yordan Ferguson Sodium [Moles/Vol] 140 mmol/L Normal 136-145 [facility] Comment on above: Performed By: #### H FPF #### [facility] [address] [place] [address] Dr. Yordan Ferguson Triglyceride [Mass/Vol] 79 mg/dL Normal <=150 [facility] Comment on above: Performed By: #### H FPF #### [facility] [address] [place] [address] Dr. Yordan Ferguson TSH 98.063 uIU/mL Critically high 0.358-3.740 [facility] Comment on above: Result Comment: RERA N SPECIMEN PER PHYSICIAN REQUEST 12/06/21 DUPLICATED WELL @ 102.38 uIU/ml Performed By: #### H FPF #### [facility] [address] [place] [address] Dr. Yordan Ferguson Urea nitrogen [Mass/Vol] 17.0 mg/dL Normal 7.0-18.0 [facility] Comment on above: Performed By: #### H FPF #### [facility] [address] [place] [address] Dr. Yordan Ferguson Urea nitrogen/Creatinine [Mass ratio] 20.5 mg/mg Normal [facility] Comment on above: Performed By: #### H FPF #### [facility] [address] [address] [address] Yordan Ferguson VLDL CALC 15.8 mg/dL Normal [facility] Comment on above: Performed By: #### H FPF #### [facility] [address] [place] [address] Dr. Yordan Ferguson CBC AUTO DIFFon 09-09-2021 BASO # 0.1 103/ul Normal 0.0-0.1 [facility] Comment on above: Performed By: #### D ATCBC #### [facility] [address] [place] [address] Dr. Yordan Ferguson Basophils/100 WBC (Bld) 1.4 % Normal 0.2-2.0 [facility] Comment on above: Performed By: #### D ATCBC #### [facility] [address] [place] [address] Dr. Yordan Ferguson EO # 0.4 103/ul Normal 0.0-0.7 [facility] Comment on above: Performed By: #### D ATCBC #### [facility] [address] [place] [address] Dr. Yordan Ferguson Eosinophils/100 WBC (Bld) 6.6 % Normal 0.9-7.0 [facility] Comment on above: Performed By: #### D ATCBC #### [facility] [address] [place] [address] Dr. Yordan Ferguson Erythrocyte distribution width (RBC) [Ratio] 14.6 % Normal 11.0-15.0 [facility] Comment on above: Performed By: #### D ATCBC #### [facility] [address] [place] [address] Dr. Yordan Ferguson Hematocrit (Bld) [Volume fraction] 39.5 % Normal 36.0-48.0 [facility] Comment on above: Performed By: #### D ATCBC #### [facility] [address] [place] [address] Dr. Yordan Ferguson Hemoglobin (Bld) [Mass/Vol] 12.9 g/dL Normal 12.0-16.0 [facility] Comment on above: Performed By: #### D ATCBC #### [facility] [address] [place] [address] Dr. Yordan Ferguson IG # 0.01 10e3/ul Normal 0.00-0.03 [facility] Comment on above: Performed By: #### D ATCBC #### [facility] [address] [place] [address] Dr. Yordan Ferguson IG % 0.2 % Normal 0.0-0.5 [facility] Comment on above: Performed By: #### D ATCBC #### [facility] [address] [place] [address] Dr. Yordan Ferguson LYMPH # 1.9 103/ul Normal 1.2-3.8 [facility] Comment on above: Performed By: #### D ATCBC #### [facility] [address] [place] [address] Dr. Yordan Ferguson Lymphocytes/100 WBC (Bld) 32.6 % Normal 20.5-60.0 [facility] Comment on above: Performed By: #### D ATCBC #### [facility] [address] [place] [address] Dr. Yordan Ferguson MCH (RBC) [Entitic mass] 30.9 pg Normal 26.7-34.0 [facility] Comment on above: Performed By: #### D ATCBC #### [facility] [address] [place] [address] Dr. Yordan Ferguson MCHC (RBC) [Mass/Vol] 32.7 g/dL Normal 29.9-35.2 [facility] Comment on above: Performed By: #### D ATCBC #### [facility] [address] [place] [address] Dr. Yordan Ferguson MCV (RBC) [Entitic vol] 94.5 fL Normal 81.0-99.0 [facility] Comment on above: Performed By: #### D ATCBC #### [facility] [address] [place] [address] Dr. Yordan Ferguson MONO # 0.5 103/ul Normal 0.3-0.8 [facility] Comment on above: Performed By: #### D ATCBC #### [facility] [address] [place] [address] Dr. Yordan Ferguson Monocytes/100 WBC (Bld) 7.8 % Normal 1.7-12.0 [facility] Comment on above: Performed By: #### D ATCBC #### [facility] [address] [place] [address] Dr. Yordan Ferguson NEUT # 3.0 103/ul Normal 1.4-6.5 [facility] Comment on above: Performed By: #### D ATCBC #### [facility] [address] [address] [address] Yordan Ferguson Neutrophils/100 WBC (Bld) 51.4 % Normal 43.0-75.0 [facility] Comment on above: Performed By: #### D ATCBC #### [facility] [address] [place] [address] Dr. Yordan Ferguson Platelet mean volume (Bld) [Entitic vol] 8.5 fL Critically low 9.5-13.5 [facility] Comment on above: Performed By: #### D ATCBC #### [facility] [address] [place] [address] Dr. Yordan Ferguson PLT 297 103/ul Normal 150-450 [facility] Comment on above: Performed By: #### D ATCBC #### [facility] [address] [place] [address] Dr. Yordan Ferguson RBC 4.18 106/ul Critically low 4.20-5.40 [facility] Comment on above: Performed By: #### D ATCBC #### [facility] [address] [place] [address] Dr. Yordan Ferguson WBC 5.8 103/ul Normal 4.0-11.0 [facility] Comment on above: Performed By: #### D ATCBC #### [facility] [address] [place] [address] Dr. Yordan Ferguson HOLLAND- BMP WITH LIPIDon 2021 Anion gap [Moles/Vol] 11.9 mmol/L Normal [facility] Comment on above: Performed By: #### D ATBMP #### [facility] [address] [place] [address] Dr. Yordan Ferguson Calcium [Mass/Vol] 9.0 mg/dL Normal 8.5-10.1 [facility] Comment on above: Performed By: #### D ATBMP #### [facility] [address] [place] [address] Dr. Yordan Ferguson Chloride [Moles/Vol] 104 mmol/L Normal 98-107 [facility] Comment on above: Performed By: #### D ATBMP #### [facility] [address] [address] [address] Yordan Ferguson Cholesterol [Mass/Vol] 261 mg/dL Critically high <=200 [facility] Comment on above: Performed By: #### D ATBMP #### [facility] [address] [address] [address] Yordan Ferguson Cholesterol in HDL [Mass/Vol] 94 mg/dL Critically high 40-60 [facility] Comment on above: Performed By: #### D ATBMP #### [facility] [address] [address] [address] Yordan Ferguson Cholesterol in LDL [Mass/Vol] 153.2 mg/dL Normal [facility] Comment on above: Performed By: #### D ATBMP #### [facility] [address] [address] [address] Yordan Ferguson CO2 [Moles/Vol] 28.5 mmol/L Normal 21.0-32.0 [facility] Comment on above: Performed By: #### D ATBMP #### [facility] [address] [place] [address] Dr. Yordan Ferguson Creatinine [Mass/Vol] 0.83 mg/dL Normal 0.55-1.02 [facility] Comment on above: Performed By: #### D ATBMP #### [facility] [address] [address] [address] Yordan Ferguson EGFR-AF CYMRAES >60 Normal >=60 [facility] Comment on above: Performed By: #### D ATBMP #### [facility] [address] [address] [address] Yordan Ferguson EGFR-NON AF CYMRAES >60 Normal >=60 [facility] Comment on above: Performed By: #### D ATBMP #### [facility] [address] [address] [address] Yordan Ferguson Glucose [Mass/Vol] 83 mg/dL Normal 74-106 [facility] Comment on above: Performed By: #### D ATBMP #### [facility] [address] [address] [address] Yordan Ferguson HDL NORMAL > or = 60 mg/dl - LO W CARDIOVASCULAR RISK <40 mg/dl - HIGH CARDIOVASCULAR RISK Normal [facility] Comment on above: Performed By: #### D ATBMP #### [facility] [address] [address] [address] Yordan Ferguson LDL CALC NORMAL SEE BELOW Normal [facility] Comment on above: Result Comment: <100 mg/dl OPTIMAL 100 - 129 mg/dl NEAR OR ABOVE OPTIMAL 130 - 159 mg/dl BORDERLINE HIGH 160 - 189 mg/dl HIGH >190 mg/dl VERY HIGH Performed By: #### D ATBMP #### [facility] [address] [address] [address] Yordan Ferguson Potassium [Moles/Vol] 4.4 mmol/L Normal 3.5-5.1 [facility] Comment on above: Performed By: #### D ATBMP #### [facility] [address] [address] [address] Yordan Ferguson Sodium [Moles/Vol] 140 mmol/L Normal 136-145 [facility] Comment on above: Performed By: #### D ATBMP #### [facility] [address] [address] [address] Yordan Ferguson Triglyceride [Mass/Vol] 69 mg/dL Normal <=150 [facility] Comment on above: Performed By: #### D ATBMP #### [facility] [address] [address] [address] Yordan Ferguson Urea nitrogen [Mass/Vol] 18.0 mg/dL Normal 7.0-18.0 [facility] Comment on above: Performed By: #### D ATBMP #### [facility] [address] [address] [address] Yordan Ferguson Urea nitrogen/Creatinine [Mass ratio] 21.7 mg/mg Normal [facility] Comment on above: Performed By: #### D ATBMP #### [facility] [address] [address] [address] Yordan Ferguson VLDL CALC 13.8 mg/dL Normal [facility] Comment on above: Performed By: #### D ATBMP #### [facility] [address] [address] [address] Yordan Ferguson Vital Signs Date Time Vital Sign Value Performing Clinician Facility 11-26-2024 10:09-0400 Body mass index (BMI) [Ratio] 27.1 kg/m2 Amrais PATHAK Work Phone: [facility] 11-26-2024 10:09-0400 Body weight 78.47 kg Amaris PATHAK Work Phone: [facility] 11-26-2024 10:09-0400 Diastolic blood pressure 86 mm[Hg] Amaris PATHAK Work Phone: [facility] 11-26-2024 10:09-0400 Systolic blood pressure 130 mm[Hg] Amaris PATHAK Work Phone: [facility] 08-07-2024 10:30-0400 Body height 170.18 cm [facility] 08-07-2024 10:30-0400 Body mass index (BMI) [Ratio] 26.6 kg/m2 [facility] 08-07-2024 10:30-0400 Body temperature 99 [degF] [facility] 08-07-2024 10:30-0400 Body weight 77.11 kg [facility] 08-07-2024 10:30-0400 Diastolic blood pressure 66 mm[Hg] [facility] 08-07-2024 10:30-0400 Heart rate 68 /min [facility] 08-07-2024 10:30-0400 SaO2% (BldA) [Mass fraction] 97 % [facility] 08-07-2024 10:30-0400 Systolic blood pressure 116 mm[Hg] [facility] 04-29-2024 11:50-0500 Body height 170.18 cm [facility] 04-29-2024 11:50-0500 Body mass index (BMI) [Ratio] 26.9 kg/m2 [facility] 04-29-2024 11:50-0500 Body weight 78.18 kg [facility] 04-29-2024 11:50-0500 Diastolic blood pressure 74 mm[Hg] [facility] 04-29-2024 11:50-0500 Heart rate 70 /min [facility] 04-29-2024 11:50-0500 Respiratory rate 12 /min [facility] 04-29-2024 11:50-0500 Systolic blood pressure 121 mm[Hg] [facility] 12-24-2023 09:06-0400 Body height 170.18 cm [facility] 12-24-2023 09:06-0400 Body mass index (BMI) [Ratio] 25.7 kg/m2 [facility] 12-24-2023 09:06-0400 Body weight 74.61 kg [facility] 12-24-2023 09:06-0400 Diastolic blood pressure 76 mm[Hg] [facility] 12-24-2023 09:06-0400 Heart rate 65 /min [facility] 12-24-2023 09:06-0400 Respiratory rate 12 /min [facility] 12-24-2023 09:06-0400 Systolic blood pressure 130 mm[Hg] [facility] 12-13-2022 08:30-0400 Body height 170.18 cm Ricky Ball Other [employer] [facility] [employer] Other 12-13-2022 08:30-0400 Body mass index (BMI) [Ratio] 25.68 kg/m2 Ricky Ball Other [employer] [employer] Other 12-13-2022 08:30-0400 Body weight 74.39 kg Ricky Ball Other [facility] [employer] Other 12-13-2022 08:30-0400 Diastolic blood pressure 71 mm[Hg] Ricky Ball Other [employer] [employer] Other 12-13-2022 08:30-0400 Respiratory rate 12 /min Ricky Ball Other [employer] Other 12-13-2022 08:30-0400 Systolic blood pressure 108 mm[Hg] Ricky Ball Other [employer] Other 06-16-2022 13:30-0500 Body height 170.18 cm Ricky Ball Other [employer] Other 06-16-2022 13:30-0500 Body mass index (BMI) [Ratio] 25.84 kg/m2 Ricky Ball Other [employer] Other 06-16-2022 13:30-0500 Body weight 74.84 kg Ricky Ball Other [employer] Other 06-16-2022 13:30-0500 Diastolic blood pressure 70 mm[Hg] Ricky Ball Other [employer] Other 06-16-2022 13:30-0500 Respiratory rate 12 /min Ricky Ball Other [employer] Other 06-16-2022 13:30-0500 Systolic blood pressure 118 mm[Hg] Ricky Ball Other [employer] Other 10-13-2021 10:30-0400 Body height 170.18 cm Mary Menard Other [employer] Other 10-13-2021 10:30-0400 Body mass index (BMI) [Ratio] 25.06 kg/m2 Mary Menard Other [employer] Other 10-13-2021 10:30-0400 Body temperature 97.1 [degF] Mary Menard Other [employer] Other 10-13-2021 10:30-0400 Body weight 72.58 kg Mary Menard Other [employer] Other 10-13-2021 10:30-0400 Diastolic blood pressure 80 mm[Hg] Mary Menard Other [employer] Other 10-13-2021 10:30-0400 SaO2% (BldA) [Mass fraction] 97 % Mary Menard Other [employer] Other 10-13-2021 10:30-0400 Systolic blood pressure 110 mm[Hg] Mary Menard Other [employer] Other Encounters Encounter Date Encounter Type Care Provider Facility Start: 12-22-2024 End: 12-22-2024 Clinisync Result Encounter Amaris PATHAK Work Phone: [facility] External Department Unsolicited Start: 12-22-2024 End: 12-22-2024 Clinisync Result Encounter Amaris PATHAK Work Phone: [facility] External Department Unsolicited Start: 12-17-2024 End: 12-17-2024 Bamchantale Thomason [facility] Start: 12-17-2024 End: 12-17-2024 Bamboo alcon Thomason MD Work Phone: [facility] Start: 12-17-2024 End: 12-17-2024 Office outpatient visit 15 minutes Iliana Thomason MD [facility] Comment on above: Seborrheic keratosis (Primary Dx); Lentigines; Melanocytic nevi of trunk; History of basal cell carcinoma Start: 12-17-2024 End: 12-17-2024 ambulatory ILIANA THOMASON Not Available Start: 11-26-2024 End: 11-26-2024 Bamboo flowsheet Amaris PATHAK Work Phone: [facility] Start: 11-26-2024 End: 12-01-2024 Bamboo flowsheet Amaris Larry PA Work Phone: [facility] Start: 11-26-2024 End: 12-01-2024 Clinisync Result Encounter Amaris [place] PA Work Phone: [facility] External Department Unsolicited [...] Not Available Start: 08-07-2024 End: 08-07-2024 ambulatory [facility] Work Phone: Start: 08-07-2024 End: 08-07-2024 Patient encounter procedure [facility] Phys[facility] Work Phone: Start: 04-29-2024 End: 04-29-2024 ambulatory [facility] Work Phone: Start: 04-29-2024 End: 04-29-2024 Patient encounter procedure [facility] Work Phone: Start: 01-14-2024 End: 01-14-2024 ambulatory ADRIANA BAIRON Not Available Start: 01-14-2024 End: 01-14-2024 Postop follow up visit related to original px Adriana Bairon DO Work Phone: [facility] Comment on above: Osteopenia, unspecif ied location Start: 12-24-2023 End: 12-24-2023 ambulatory [facility] Work Phone: Start: 12-24-2023 End: 12-24-2023 Encounter for general adult medical examination without abnormal findings [facility] Start: 12-24-2023 End: 12-24-2023 Patient encounter procedure [facility] Phys[facility] Work Phone: Start: 12-20-2023 Patient encounter status [facility] Start: 12-20-2023 Non-patient / Non-visit [facility] Physician [facility] Work Phone: Start: 11-22-2023 Non-patient / Non-visit [facility] Work Phone: Start: 06-29-2023 End: 06-29-2023 ambulatory [facility] Work Phone: Start: 06-29-2023 End: 06-29-2023 Patient encounter procedure [facility] Work Phone: Start: 05-29-2023 Chart abstracting Iliana starr MD Work Phone: [facility] Start: 05-23-2023 End: 05-23-2023 Patient encounter procedure Iliana Thomason MD Work Phone: [facility] Comment on above: Basal cell carcinoma of skin of left lower limb, including hip (Primary Dx) Start: 04-17-2023 ([facility]) [facility] Scheduled Ricky Parmar [facility] Start: 04-17-2023 End: 04-17-2023 ambulatory Ricky Parmar Other [employer] Other Start: 04-17-2023 End: 04-17-2023 Patient encounter procedure [facility] Work Phone: Start: 12-13-2022 End: 12-13-2022 ambulatory Ricky Parmar Other [employer] Other Start: 12-13-2022 Encounter for genera l adult medical examination without abnormal findings Ricky Parmar [facility] Start: 12-13-2022 Periodic preventive med est patient 40-64yrs Ricky Ghulam [facility] Start: 10-10-2022 End: 10-10-2022 ambulatory Ricky Parmar Other [employer] Other Start: 10-10-2022 Telephone encounter Ricky Parmar [facility] Start: 08-09-2022 End: 08-09-2022 ambulatory Ricky Parmar Other [employer] Other Start: 08-09-2022 Office outpatient vi sit 15 minutes Ricky Parmar [facility] Start: 07-14-2022 End: 07-14-2022 ambulatory Ricky Parmar Other [employer] Other Start: 07-14-2022 Telephone encounter Ricky Parmar [facility] Start: 07-13-2022 End: 07-14-[address] RICKY PARMAR Facility:[facility] Start: 06-16-2022 End: 06-16-2022 ambulatory Ricky Parmar Other [employer] Other Start: 06-16-2022 Office outpatient vi sit 15 minutes Ricky Parmar [facility] Start: 06-12-2022 End: [...] 10-13-2021 End: 10-13-2021 ambulatory Mary Menard Other [employer] Other Start: 10-13-2021 HC visit new patient [...] [address] [place] [address] Iliana Thomason MD [address] [place] [address] [facility] Start: 12-01-2025 End: 12-01-2025 Patient encounter procedure 12/01/2025 9:00 AM EDT Procedure Visit RAYSA MENDOZA [address] [place] [address] Amaris Juarez PA [address] [place] [address] [facility] Start: 12-17-2024 End: 12-17-2024 [...] [facility] [address] [facility] [address] [place] [address] Iliana Thomason MD [address] [facility] [address] [place] [address] [facility] Start: 11-27-2023 End: 11-27-2023 Patient encounter procedure 11/27/2023 9:20 AM EDT Office Visit [facility] [address] [facility] [address] [place] [address] Iliana Thomason MD [address] [facility] [address] [place] [address] [facility] THIN PREP TIS PAP AN D HR HPV DNA THIN PREP TIS PAP AND HR HPV DNA Pathology and Cytology Routine Well woman exam with routine gynecological exam Ordered: 11/26/2024 [facility] Comment on above: Ordered: 11/26/2024 Payers Date Payer Category Payer Private Health Insurance [id number] 2008 Private Health Insurance [id number] 1960 Unknown [id number] 1962 Unknown [id number] [id number] 1962 Unknown [id number] [id number] 1962 Unknown [id number] [id number] 1962 Unknown [id number] [id number] 1962 Unknown [id number] [id number] 1962 Unknown [id number] [id number] 1962 Unknown [id number] [id number] 1962 Unknown [id number] [id number] 1962 Unknown [id number] [id number] 1962 Unknown [id number] 2.16.840.1.903607.3.579.2.125 9 1962 Unknown [id number] 2.16.840.1.234330.3.579.2.125 9 1962 Unknown [id number] 2.16.840.1.267826.3.579.2.125 9 1959 Self-pay 1959 Unknown [id number] Private Health Insurance [id number] Private Health Insurance [facility] [id number] Unknown [id number] [id number] Unknown [id number] [id number] Unknown [id number] [id number] Unknown [id number] [id number] Social History Date Type Detail Facility Start: 05-23-2023 End: 12-17-2024 Sex Assigned At [facility] Last Size Other Start: 04-06-2023 Tobacco smoking status WAIS Never smoked tobacco [facility] Start: 04-06-2023 End: 05-29-2023 Tobacco use and exposure Smokeless tobacco non-user [facility] Start: 05-23-2023 End: 12-17-2024 History of Social function [facility] Start: 1960 Sex Assigned At Not on file [facility] Start: 05-29-2023 End: 06-29-2023 Tobacco smoking status [facility] Ex-smoker [facility] History of tobacco use Current smoker [facility] History of tobacco use Cigarette Smoker [facility] Start: 1960 Sex Assigned At Female [facility] Start: 04-29-2024 End: 08-07-2024 Sex Female (finding) [facility] Clinical Notes 09-02-2021 to 12-17-2024 Iliana [...] Examined Right arm Examined Patient wearing nail canadian, Denies dark streaks on toenails Left arm [...] Visit: 1 year documented in this encounter [facility] 11-26-2024 History of Presen t illness Narrative Reason for Appointment: Patient ID: Fiordaliza Lopez is a 64 y.o. female who presents for [facility] Women Visit Patient presents today for Annual [...] nursing note reviewed. Exam conducted with a bleach analyst present. Vitals: Estimated body mass index is [...] of: [place] documented in this encounter [facility] 01-14-2024 History of Presen t illness Narrative Reason for Appointment: Patient ID: Fiordaliza Lopez is a 63 y.o. female who presents for No chief complaint on file. Patient presents today via telephone call for a telehealth appointment. Patients Phone #: [phone] (mobile) Current Medications: has a current medication [...] Adriana Waddell DO documented in this encounter [facility] 05-23-2023 History of Presen t illness Narrative [...] left lower limb, including hip Left Thigh Lockhart papule at biopsy site Destr of lesion Complexity: simple Destruction method: electrodesiccation and curettage Informed consent: discussed and consent obtained Informed consent comment: The risks of the procedure were discussed, including, but not limited to risks of scarring, darker or pattern generator operator pigmentary changes, recurrence, infection, and incomplete removal [...] lidocaine used: 1.0 cc Previous accession number: [id number] ED&C today, see procedure note. Return to clinic prior to next scheduled visit for any signs or symptoms of recurrence, reviewed the signs and symptoms. Next Visit: 6 months FBSE documented in this encounter [facility] 04-17-2023 Evaluation note Encounter Date Diagnosis Assessment Notes Apr, Acute bronchitis due to other specified organisms (ICD-10 - J20.8) Instructed to use Robitussin or Mucinex for cough, saline or Flonase NS for congestion, Tylenol for pain and fever. Apr, Cigarette nicotine dependence in remission (ICD-10 - F17.211) May increase risk for prolonged illness [employer] Other 08-30-2023 Evaluation note* Encounter Date Diagnosis Assessment Notes Treatment Notes Treatment Clinical Notes Nov, Wellness examination (ICD-10 - Z00.00) Healthy diet and exercise. Reviewed age-appropriate preventive testing recommended. Nov, Atherosclerosis of [place] artery of both lower extremities with intermittent [...] Instructed on monthly SBE and yearly Mammogram [employer] [facility] Other 04-26-2023 Evaluation note* Encounter Date Diagnosis Assessment Notes Treatment Notes Treatment Clinical Notes Jul, Acute non-recurrent maxillary sinusitis (ICD-10 - J01.00) Instructed to use Robitussin or Mucinex for cough, saline or Flonase NS for congestion, Tylenol for pain and fever. Jul, Suspected COVID-19 virus infection (ICD-10 - Z20.822) Encouraged to test and notify office if positive results [employer] [facility] Other 03-03-2023 Evaluation note* Encounter Date Diagnosis [...] - R04.0) Saline NS daily. Avoid NSAIDs [employer] [facility] Other 09-16-2022 NotePROCEDURE: XR ANKLE RT MIN 3 VIEWS COMPARISON: None. HISTORY: Pain of right ankle joint FINDINGS: BONES:No fracture, acute abnormality, or significant arthropathy. SOFT TISSUES:Negative. No visible soft tissue swelling. EFFUSION:None visible. OTHER: Negative. IMPRESSION: No acute abnormality Electronically authenticated by: VERONIKA HORTON Date: 2021-12-30 16:32[facility]07-13-2022 NotePROCEDURE: XR FOOT RT MIN 3 VIEWS COMPARISON: 09/14/2021 HISTORY: Pain in right foot FINDINGS: BONES:No fracture, acute abnormality, or significant arthropathy. SOFT TISSUES:Negative. No visible soft tissue swelling. EFFUSION:None visible. OTHER: Negative. IMPRESSION: No acute abnormality Electronically authenticated by: VERONIKA HORTON Date: 2021-10-26 19:43[facility]06-30-2022 Evaluation note* Encounter Date Diagnosis Assessment Notes Treatment Notes Treatment Clinical Notes Sep, Varicose veins of bilateral lower extremities with other complications (ICD-10 - I83.893) We reviewed her lower extremity ABIs obtained at the [facility] which revealed no hemodynamically significant peripheral [...] agrees with this plan, denies any questions. [employer] Other 06-01-2022 NotePROCEDURE: XR FOOT RT MIN 3 VIEWS COMPARISON: 09/02/2021 HISTORY: Pain in right foot FINDINGS: BONES:No fracture, acute abnormality, or significant arthropathy. SOFT TISSUES:Negative. No visible soft tissue swelling. EFFUSION:None visible. OTHER: Negative. IMPRESSION: No acute disease. Electronically authenticated by: VERONIKA HORTON Date: 2021-09-14 11:59[id number] NotePROCEDURE: XR FOOT RT MIN 3 VIEWS [...] authenticated by: DORIE OROZCO Date: 2021-09-02 09:15[facility] noteNo InformationNortDepartment of [facility] [employer] Other Evaluation note* Diagnosis Basal cell carcinoma of skin of left lower limb, including hip- Primary documented in this encounter [facility] HealthcareEvaluation noteNo assessment [facility] Work Phone: Evaluation note* Diagnosis Onset Date Resolution Status [id number] acute Chronic venous insufficiency of lower extremity acute Cigarette nicotine dependence in remission acute Elevated cholesterol acute Hypothyroid acute Screening mammogram for breast cancer acute Wellness examination acute [facility] Work Phone: Evaluation note* Diagnosis Osteopenia, unspecified location documented in this encounter [facility] HealthcareEvaluation note* Diagnosis Onset Date Resolution Status Admit Date Maxillary sinusitis acute August 07, 2024 10:25am [facility] Work Phone: Evaluation note* Diagnosis Well woman exam with routine gynecological exam Routine gynecological examination Encounter for screening mammogram for malignant neoplasm of breast Postmenopausal state Asymptomatic postmenopausal status (age-related) (natural) documented in this encounter [facility] HealthcareEvaluation note* Diagnosis Seborrheic keratosis- Primary Lentigines Melanocytic nevi of trunk History of basal cell carcinoma Personal history of other malignant neoplasm of [facility] - [facility]* Type Description Date Medical History HPV Medical History PAD Surgical History T&A Surgical History Right Shoulder, bone spur Surgical History Cervix, HPV Hospitalization History See past surgical hx [facility] [employer] Other Hislapf general Narrative - Reported* Type Description Date [...] pharyngoesophageal Medical History Other atherosclerosi s of [place] arteries of extremities, bilateral legs Medical History Chronic venous insufficiency Surgical History TONSILLECTOMY AND ADENOIDECTOMY 03/2010 Surgical History Right Shoulder, bone spur Surgical History Cervix, HPV Surgical History EGD WITH BALLOON DILATION, ESOP HAGUS Surgical History BENIGN LEFT BREAST BIOPSY Surgical History LEEP PROCEDURE 09/2008 Hospitalization History See past surgical hx [employer] Other History general Narrative - Reported* Type [...] pharyngoesophageal Medical History Other atherosclerosi s of [place] arteries of extremities, bilateral legs Medical History Chronic venous insufficiency Surgical History TONSILLECTOMY AND ADENOIDECTOMY 03/2010 Surgical History Right Shoulder, bone spur Surgical History Cervix, HPV Surgical History EGD WITH BALLOON DILATION, ESOP HAGUS Surgical History BENIGN LEFT BREAST BIOPSY Surgical History LEEP PROCEDURE 09/2008 Surgical History Colonoscopy 07/2020 Hospitalization History See past surgical hx [employer] [facility] Other Summary Purpose Family History Relationship Condition [...] Visit Chief Complaint Sinus Infection-Test ing For [id number] sinus infection Chief Complaint Wellness Reason for Visit [id number] Chronic venous insufficiency of lower extremity Cigarette [...] DATE CREATED AUTHOR AUTHOR'S MOOK ATION 12/18/2024 [facility] Care Teams (unrecognized sec tion and [...] June 29, 2023 End: June 29, 2023 Human Resources Officer Relationship Specialty Start Date End Date Ricky Parmar MD [address] [place] [address] PCP - General Internal Medicine 11/22/23 Team Status: Inactive Member Role Status Dates Ricky Parmar DO Primary Care Provider Active Start: August 07, 2024 End: August 07, 2024 Samara Estevez APRN [employer] OPERATOR-C Attending Provider Act alfred Start: August 07, 2024 End: August 07, 2024 Human Resources Officer Relationship Specialty Start Date End Date Ricky Parmar DO [address] [place] [address] PCP - General Internal Medicine 11/22/23 Human Resources Officer Relationship Specialty Start Date End Date Ricky Parmar DO [address] [place] [id number] PCP - General Internal Medicine 11/22/23 Human Resources Officer Relationship Specialty Start Date End Date Ricky Parmar DO [address] [place] [id number] PCP - General Internal Medicine 11/22/23 Goals [...] BE BASED ON THE PRIMARY CLINICAL RECORDS. [employer] [facility]. provides no warranty or guarantee of the accuracy or completeness of information in this document.
[2025-01-29 08:27] LABS: Hematocrit 37.8 % (36.0-48.0); Hemoglobin 12.6 g/dL (12.0-16.0); Immature Granulocytes Abs Auto 0.01 10^3/uL (0.00-0.03); Immature Granulocytes Pct Auto 0.2 % (0.0-0.5); Lymphocytes Absolute Auto 2.1 10^3/uL (1.2-3.8); Mean Corpuscular HGB Conc 33.3 g/dL (29.9-35.2); Mean Corpuscular Hemoglobin 30.7 pg (26.7-34.0); Mean Corpuscular Volume 92.0 fL (81.0-99.0); Platelet Count 317 10^3/uL (150-450); Red Blood Count 4.11 10^6/uL (4.20-5.40); White Blood Count 6.3 10^3/uL (4.0-11.0)
[2025-01-29 09:40] LABS: Alanine Aminotransferase 30 U/L (14-59); Albumin Globulin Ratio 0.9; Albumin Level 3.7 g/dL (3.4-5.0); Alkaline Phosphatase 83 U/L (46-116); Anion Gap 13.6; Aspartate Amino Transferase 23 U/L (15-37); Blood Urea Nitrogen 18.0 mg/dL (7.0-18.0); Calcium 9.2 mg/dL (8.5-10.1); Carbon Dioxide 27.8 mmol/L (21.0-32.0); Chloride 106 mmol/L (98-107); Cholesterol 252 mg/dL (<=200); Estimated GFR (African America >60 (>=60 mL/min/1.73m^2); Estimated GFR (Non-African Ame >60 (>=60 mL/min/1.73m^2); Globulin 4.0 g/dL; Glucose 94 mg/dL (74-106); HDL Cholesterol 96 mg/dL (40-60); Potassium 4.4 mmol/L (3.5-5.1); Sodium 143 mmol/L (136-145); Thyroid Stimulating Hormone 0.252 uIU/mL (0.358-3.740); Total Protein 7.7 g/dL (6.4-8.2); Triglycerides 63 mg/dL (<=150); VLDL CHOLESTEROL 12.6 mg/dL
== END 2025-01-29 08:05 | disposition home or self-care (01) ==
LOC: LAB 08:05
PROVIDERS: PCP Internal Medicine; Visit Provider Internal Medicine
DX: Z00.00 Encounter for general adult medical examination without abnormal findings (principal)
CPT/HCPCS: 36415; 80053; 80061; 84443; 85025